=== PATIENT | female | born 1950 | race African-American/Black ===

== ENCOUNTER 2019-01-16 21:52 | Inpatient (IN) | payer MEDICARE ==
[~2019-01-16] VITALS: Ht 160 cm; Wt 67.2 kg
[~2019-01-16 21:52] MED LIST: AMLO5TAB10 PO; CALC0.25 PO; CALC667C6 PO; CARV25TA2 PO; FOLI0.8T21 PO; INSU100V13 SQ; LOSA100T14 PO; METO5TAB PO; POLY17PO29 PO; SENN8.6T67 PO; [UNRECOGNIZED DRUG - CODE] IJ
[2019-01-16] MEDS ORDERED: IPRATRPIUM/ALBUTEROL 0.5/2.5MG 3 ML NEBU. ONE (21:58)
[2019-01-16] MEDS ORDERED: IPRATRPIUM/ALBUTEROL 0.5/2.5MG 3 ML NEBU. NEB ONE (22:00)
[2019-01-16 22:24] LABS: BASE EXCESS ABG 8 mmol/L (-3-3); HCO3 ABG 32 mmol/L (21-28); PCO2 ABG 38 mmHg (35-46); SAT O2 ABG 80 % (92-99)
[2019-01-16 22:26] LABS: PO2 ABG < 42 mmHg (65-108)
[2019-01-16 22:27] LABS: FIO2 ABG 35
[2019-01-16] MEDS ORDERED: PIP/TAZO PER PHARMACY MC PRN (22:30)
[2019-01-16] MEDS ORDERED: PIPERACILLIN/TAZOBACTAM 2.25 GM in IV NORMAL SALINE 50ML 50 ML IV ONE (23:00)
[2019-01-16] MEDS ORDERED: NITROGLYCERIN OINT 1 GM PACKET. TP ONE (23:00)
[2019-01-16 23:01] LABS: BASO # 0.1 x10^3/uL (0.0-0.2); BASO % 1 % (0-3); EOS # 0.2 x10^3/uL (0.0-0.7); EOS % 3 % (0-3); HEMATOCRIT 21.1 % (36.0-47.0); LYMPH # 1.5 x10^3/uL (1.0-4.8); LYMPH % 16 % (24-48); MEAN CORPUSCULAR HEMOGLOBIN 27 pg (25-35); MEAN CORPUSCULAR HGB CONC 33 g/dL (31-37); MEAN CORPUSCULAR VOLUME 82 fL (79-100); MONO # 0.4 x10^3/uL (0.0-1.1); MONO % 4 % (0-9); NEUT % 76 % (31-73); PLATELET COUNT 354 x10^3/uL (140-400); RED BLOOD COUNT 2.56 x10^6/uL (3.50-5.40); RED CELL DISTRIBUTION WIDTH 18.6 % (11.5-14.5); WHITE BLOOD COUNT 9.2 x10^3/uL (4.0-11.0)
[2019-01-16 23:08] LABS: PROTHROMBIN TIME PATIENT 13.3 SEC (11.7-14.0)
[2019-01-16] MEDS ORDERED: LABETALOL 20 MG/4 ML DISP.SYRIN. IVP ONE (23:15)
[2019-01-16 23:24] LABS: ALBUMIN 2.8 g/dL (3.4-5.0); ALBUMIN/GLOBULIN RATIO 0.6 (1.0-1.7); CALCIUM 9.9 mg/dL (8.5-10.1); CREATININE 9.1 mg/dL (0.6-1.0); GFR 5.2; POTASSIUM 3.7 mmol/L (3.5-5.1); TOTAL BILIRUBIN 0.3 mg/dL (0.2-1.0); TOTAL PROTEIN 7.2 g/dL (6.4-8.2)
[2019-01-17] VITALS (7 sets, daily range): BP systolic 131–215; BP diastolic 60–98
--- NOTE | 2019-01-17 00:09 | PHYS DOC ---
Past Medical History Past Medical History: Diabetes-Type II, Hypertension, Renal Failure, Other Additional Past Medical Histor: UNKNOWN HX Past Surgical History: Hysterectomy, Other Additional Past Surgical Histo: PERITONEAL CATHERER REMOVED, FISTULA LUE, ABD SURG FOR PERIOTONITIS Alcohol Use: None Drug Use: None Adult General Chief Complaint Chief Complaint: SHORTNESS OF BREATH HPI HPI Patient is a 68 year old female who presents with chief complaint of shortness of breath brought in by ambulance in onset describes some chest tightness on the right only she says that is long-standing no cough no fever she was admitted to [facility] last week she said she got out about 10 days ago she had a some sort of a lesion under her left neck skin area removed there were monitoring an elevated white blood cell count I don't have access to the all those records at this time. Patient has not had a recent cough or fever she did go to dialysis on Thursday she is currently history limited due to acute shortness of breath requiring BiPAP Review of Systems Review of Systems Limited by shortness of breath Current Medications Current Medications Current Medications Medications (Trade) Dose Ordered Sig/Aruna Start Time Stop Time Status Last Admin Dose Admin Albuterol/ Ipratropium (Duoneb) 3 ml STK-MED ONCE 01/16/19 21:58 01/16/19 21:59 DC Piperacillin Sod/ Tazobactam Sod (Zosyn Per Pharmacy) 1 each PRN DAILY PRN 01/16/19 22:30 Allergies Allergies Allergies Coded Allergies Type Severity Reaction Last Updated Verified No Known Drug Allergies 01/31/15 No Physical Exam Physical Exam Constitutional: Well developed, well nourished, moderate distress HENT: Normocephalic, atraumatic, bilateral external ears normal, oropharynx moist, no oral exudates, nose normal. [] Eyes: PERRLA, EOMI, conjunctiva normal, no discharge. [] Neck: Normal range of motion, no tenderness, supple, no stridor. [] Cardiovascula difficult due to lung findings but probable murmur noted left upper sternal border Lungs & Thorax: Wheezing and crackles noted bilaterally increased tachypnea she started breathing 40 times a minute when we took the BiPAP off literally for 10 seconds Abdomen: Bowel sounds normal, soft, no tenderness, no masses, no pulsatile masses. [] Skin: Warm, dry, no erythema, no rash. [] Back: No tenderness, no CVA tenderness. [] Extremities: No tenderness, no cyanosis, no clubbing, ROM intact, 1+ bilateral edema Neurologic: Alert and oriented X 3, normal motor function, normal sensory function, no focal deficits noted. [] Psychologic: Appears very anxious Current Patient Data Vital Signs Vital Signs Date Time Temp Pulse Resp B/P (MAP) Pulse Ox O2 Delivery O2 Flow Rate FiO2 01/16/19 22:40 82 26 226/102 (143) 100 BiPAP/CPAP 01/16/19 21:52 98.2 35.0 98.2 Lab Values Laboratory Tests Test 01/16/19 22:10 01/16/19 22:40 O2 Saturation 80 % (92-99) L Arterial Blood pH 7.53 (7.35-7.45) H Arterial Blood pCO2 at Patient Temp 38 mmHg (35-46) Arterial Blood pO2 at Patient Temp < 42 mmHg (65-108) *L Arterial Blood HCO3 32 mmol/L (21-28) H Arterial Blood Base Excess 8 mmol/L (-3-3) H FiO2 35 White Blood Count 9.2 x10^3/uL (4.0-11.0) Red Blood Count 2.56 x10^6/uL (3.50-5.40) L Hemoglobin 7.0 g/dL (12.0-15.5) *L Hematocrit 21.1 % (36.0-47.0) L Mean Corpuscular Volume 82 fL (79-100) Mean Corpuscular Hemoglobin 27 pg (25-35) Mean Corpuscular Hemoglobin Concent 33 g/dL (31-37) Red Cell Distribution Width 18.6 % (11.5-14.5) H Platelet Count 354 x10^3/uL (140-400) Neutrophils (%) (Auto) 76 % (31-73) H Lymphocytes (%) (Auto) 16 % (24-48) L Monocytes (%) (Auto) 4 % (0-9) Eosinophils (%) (Auto) 3 % (0-3) Basophils (%) (Auto) 1 % (0-3) Neutrophils # (Auto) 7.0 x10^3uL (1.8-7.7) Lymphocytes # (Auto) 1.5 x10^3/uL (1.0-4.8) Monocytes # (Auto) 0.4 x10^3/uL (0.0-1.1) Eosinophils # (Auto) 0.2 x10^3/uL (0.0-0.7) Basophils # (Auto) 0.1 x10^3/uL (0.0-0.2) Prothrombin Time 13.3 SEC (11.7-14.0) Prothrombin Time INR 1.0 (0.8-1.1) Sodium Level 141 mmol/L (136-145) Potassium Level 3.7 mmol/L (3.5-5.1) Chloride Level 97 mmol/L (98-107) L Carbon Dioxide Level 33 mmol/L (21-32) H Anion Gap 11 (6-14) Blood Urea Nitrogen 72 mg/dL (7-20) H Creatinine 9.1 mg/dL (0.6-1.0) H Estimated GFR (Cockcroft-Gault) 5.2 BUN/Creatinine Ratio 8 (6-20) Glucose Level 78 mg/dL (70-99) Lactic Acid Level 1.1 mmol/L (0.4-2.0) Calcium Level 9.9 mg/dL (8.5-10.1) Total Bilirubin 0.3 mg/dL (0.2-1.0) Aspartate Amino Transferase (AST) 19 U/L (15-37) Alanine Aminotransferase (ALT) 12 U/L (14-59) L Alkaline Phosphatase 109 U/L (46-116) Troponin I Quantitative 0.038 ng/mL (0.000-0.055) PV-Uso-I-Type Natriuretic Peptide > 33606 pg/mL (0-124) H Total Protein 7.2 g/dL (6.4-8.2) Albumin 2.8 g/dL (3.4-5.0) L Albumin/Globulin Ratio 0.6 (1.0-1.7) L Procalcitonin 2.10 ng/mL (0.00-0.10) H Laboratory Tests 01/16/19 22:40 Laboratory Tests 01/16/19 22:40 EKG EKG EKG shows normal sinus rhythm rate of 82 no acute ischemic changes noted interpreted by me time of encounter.[] Radiology/Procedures Radiology/Procedures [] Impressions: Chest x-ray showed a small opacity at the right midlung field with associated infiltrate versus edema I think it looks more like pneumonia but clinically the patient is presenting more like pulmonary edema Course & Med Decision Making Course & Med Decision Making Pertinent Labs and Imaging studies reviewed. (See chart for details) []68-year-old female end-stage renal Thursday hypertension d nesha recent admit over at [facility] who is presenting with acute hypoxemic respiratory failure. Per the medics sat was in the mid 80s on arrival she was wheezing and had crackles they put her on BiPAP this helped a lot we try to take it off she did not want it off she said it made her much much better she was breathing moderately fast when we tried to remove it. Blood gases very likely venous because the sat was 100 one we DID THE GAS, she moves her arm the respiratory therapist tells me she thinks it was very likely venous as well. I spoke with Dr. VIVAR reviewed case would like to try observation see how she is doing when she gets to the floor to decide whether to do dialysis emergently tonight or not. In summary, patient is having hypoxic respiratory failure improvement with BiPAP chest x-ray abnormal probably pneumonia pro calcitonin was elevated however pulmonary edema unilateral secondary to end-stage renal disease and fluid overload is possible blood pressure was in the 220s and a BNP was also very elevated. We did order IV Zosyn in the emergency room. Hemoglobin 7.0 I ordered 1 unit of blood transfusion as well Patient was given nitroglycerin as well as labetalol in the emergency room for BPs in the 2 22/2/30 range. Admit to service of Dr. Velazquez usual local protocol , Critical care time was 35 minutes exclusive of procedures. For management of acute hypoxemic respiratory failure interpretation of blood gas monitoring and reevaluation of the patient Dragon Disclaimer Dragon Disclaimer This electronic medical record was generated, in whole or in part, using a voice recognition dictation system. Departure Departure Impression: Primary Impression: Acute hypoxemic respiratory failure Disposition: ADMITTED INPATIENT Admitting Physician: STACEY Condition: STABLE Referrals: NO PCP (PCP) AISHA ALSTON MD Jan 17, 2019 00:09
[2019-01-17] MEDS ORDERED: LABETALOL 20 MG/4 ML DISP.SYRIN. IVP PRN (00:15)
--- NOTE | 2019-01-17 02:04 | NUR ---
0100 pt here from er. Admission and pm assessment complete. Monitor on. VS taken. Call to Dr. Steiner. Pt continues to be short of breath and hypertensive. Pt stating "I need dialysis". 1 unit of blood ordered. Place on hold for now per Dr. Steiner. Dr. Steiner to contact dialysis nurse. [address] Morales regarding blood pressure. [address] Morales regarding blood pressure. Will continue to monitor.
[2019-01-17] MEDS ORDERED: ALBUMIN HUMAN 25% 200 ML IV PRN (02:30)
[2019-01-17] MEDS ORDERED: IV NORMAL SALINE 1000ML BAG 1,000 ML IV PRN ×2 (02:30)
[2019-01-17] MEDS ORDERED: DIALYSIS PATIENT. MC PRN ×2 (02:30)
--- NOTE | 2019-01-17 02:46 | NUR ---
Pt to dialysis.
--- NOTE | 2019-01-17 06:35 | EKG ---
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
--- NOTE | 2019-01-17 08:32 | PDOC1 ---
History and Physical Date of Admission Date of Admission DATE: 01/17/19 TIME: 08:29 Identification/Chief Complaint Chief Complaint short ness of breath Source Source: Chart review, Patient History of Present Illness History of Present Illness Ms. Garcia, is a 68 year old female admit with acute shortness of breath, brought by EMS, and "could not breathe" - was started on BIPAP in the ER. HD done this AM at 0300, and she now feels much better, was a sleeping hard when I entered at 0800. recent admit to [facility] for myalgias, she reports now feeling better, Patient has not had a recent cough or fever she did go to dialysis on Thursday she is currently history limited due to acute shortness of breath r . She has been compliant with dialysis, went last thursday, has been compliant with diet, Past Medical History Cardiovascular: HTN, Hyperlipidemia Pulmonary: No pertinent hx GI: No pertinent hx Heme/Onc: Anemia NOS Hepatobiliary: No pertinent hx Psych: Anxiety Musculoskeletal: Osteoarthritis Infectious disease: Other Renal/: Chronic renal failure Endocrine: Diabetes Past Surgical History Past Surgical History: Hysterectomy, Other Family History Family History: Coronary Artery Disease, Hypertension Social History Smoke: No ALCOHOL: none Drugs: None Current Medications Current Medications Current Medications Albuterol/ Ipratropium (Duoneb) 3 ml 1X ONCE NEB Last administered on 01/16/19at 22:08; Start 01/16/19 at 22:00; Stop 01/16/19 at 22:01; Status DC Albuterol/ Ipratropium (Duoneb) 3 ml STK-MED ONCE .ROUTE ; Start 01/16/19 at 21:58; Stop 01/16/19 at 21:59; Status DC Piperacillin Sod/ Tazobactam Sod (Zosyn Per Pharmacy) 1 each PRN DAILY PRN MC SEE COMMENTS; Start 01/16/19 at 22:30 Piperacillin Sod/ Tazobactam Sod 2.25 gm/Sodium Chloride 50 ml @ 100 mls/hr 1X ONCE IV Last administered on 01/16/19at 23:23; Start 01/16/19 at 23:00; Stop 01/16/19 at 23:29; Status DC Nitroglycerin (Nitro-Bid Oint) 1 inch 1X ONCE TP Last administered on 01/16/19at 23:10; Start 01/16/19 at 23:00; Stop 01/16/19 at 23:01; Status DC Labetalol HCl (Normodyne Iv Push) 20 mg 1X ONCE IVP Last administered on 01/16/19at 23:14; Start 01/16/19 at 23:15; Stop 01/16/19 at 23:16; Status DC Piperacillin Sod/ Tazobactam Sod 2.25 gm/Sodium Chloride 50 ml @ 100 mls/hr Q8HRS IV ; Start 01/17/19 at 06:00 Labetalol HCl (Normodyne Iv Push) 20 mg PRN Q2HR PRN IVP HYPERTENSION; Start 01/17/19 at 00:15 Sodium Chloride 1,000 ml @ 1,000 mls/hr Q1H PRN IV hypotension; Start 01/17/19 at 02:30; Stop 01/17/19 at 08:29 Albumin Human 200 ml @ 200 mls/hr 1X PRN PRN IV Hypotension; Start 01/17/19 at 02:30; Stop 01/17/19 at 08:29 Sodium Chloride 1,000 ml @ 400 mls/hr Q2H30M PRN IV PATENCY; Start 01/17/19 at 02:30; Stop 01/17/19 at 14:29 Info (PHARMACY MONITORING -- do not chart) 1 each PRN DAILY PRN MC SEE COMMENTS; Start 01/17/19 at 02:30 Info (PHARMACY MONITORING -- do not chart) 1 each PRN DAILY PRN MC SEE COMMENTS; Start 01/17/19 at 02:30 Active Scripts Active Reported Miralax (Polyethylene Glycol 3350) 17 Gm Powd.pack 1 Packet PO DAILY Sennosides 8.6 Mg Tablet 8.6 Mg PO DAILYWSUP Metoclopramide Hcl 5 Mg Tablet 5 Mg PO TID Losartan Potassium 100 Mg Tablet 1 Tab PO DAILY Levemir (Insulin Detemir) 100 Unit/1 Ml Vial 10 Unit SQ DAILYWSUP Elise-Monica Tablet (Folic Acid/Vitamin B Comp W-C) 0.8 Mg Tablet 0.8 Mg PO DAILY Procrit (Epoetin Shan) 20,000 Unit/2 Ml Vial 16,000 Unit IJ WEEKLY Carvedilol 25 Mg Tablet 1 Tab PO BID Phoslo (Calcium Acetate) 667 Mg Capsule 2 Cap PO TIDWMEALS Calcitriol 0.25 Mcg Capsule 1 Cap PO DAILY Amlodipine Besylate 5 Mg Tablet 1 Tab PO BID Allergies Allergies: Coded Allergies: No Known Drug Allergies (Unverified , 01/31/15) ROS General: YES: Fatigue, Malaise; No: Chills, Night Sweats, Appetite, Other PSYCHOLOGICAL ROS: YES: Sleep disturbances; No: Anxiety, Behavioral Disorder, Concentration difficultie, Decreased libido, Depression, Disorientation, Hallucinations, Hostility, Irritablity, Memory difficulties, Mood Swings, Obsessive thoughts, Suicidal ideation, Other Eyes: No Blurry vision, No Decreased vision, No Double vision, No Dry eyes, No Excessive tearing, No Eye Pain, No Itchy Eyes, No Loss of vision, No Photophobia, No Scotomata, No Uses contacts, No Uses glasses, No Other HEENT: No: Heacaches, Visual Changes, Hearing change, Nasal congestion, Nasal d ischarge, Oral lesions, Sinus pain, Sore Throat, Epistaxis, Sneezing, Snoring, Tinnitus, Vertigo, Vocal changes, Other Respiratory: YES: Shortness of breath, SOB with excertion; No: Cough, Hemoptysis, Orthopnea, Pleuritic Pain, Sputum Changes, Stridor, Tachypnea, Wheezing, Other Cardiovascular: yes Orthopnea; No Chest Pain, No Palpitations, No Paroxysmal Noc. Dyspnea, No Edema, No Lt Headedness, No Other Gastrointestinal: No Nausea, No Vomiting, No Abdominal Pain, No Diarrhea, No Constipation, No Melena, No Hematochezia, No Other Genitourinary: No Dysuria, No Frequency, No Incontinence, No Hematuria, No Re tention, No Discharge, No Urgency, No Pain, No Flank Pain, No Other, No , No , No , No , No , No , No Musculoskeletal: Yes Joint Pain Neurological: No Behavorial Changes, No Bowel/Bladder ControlChng, No Confusi on, No Dizziness, No Headaches, No Impaired Coord/balance, No Memory Loss, No Numbness/Tingling, No Seizures, No Speech Problems, No Tremors, No Visual Changes, No Weakness, No Other Skin: Yes Dry Skin Physical Exam General: Alert, Oriented X3, Cooperative, No acute distress HEENT: Atraumatic, PERRLA, EOMI, Mucous membr. moist/pink Lungs: Clear to auscultation, Normal air movement Heart: S1S2, RRR Extremities: No clubbing, Normal pulses Skin: No breakdown, No significant lesion Neuro: Normal gait, Normal speech, Normal tone, Cranial nerves 3-12 NL Psych/Mental Status: Mental status NL, Mood NL Vitals Vitals Vital Signs Date Time Temp Pulse Resp B/P (MAP) Pulse Ox O2 Delivery O2 Flow Rate FiO2 01/17/19 07:39 98.1 77 20 166/79 (108) 99 Nasal Cannula 98.1 01/16/19 21:52 35.0 Labs Labs Laboratory Tests Test 01/16/19 22:10 01/16/19 22:40 01/17/19 06:00 O2 Saturation 80 % (92-99) Arterial Blood pH 7.53 (7.35-7.45) Arterial Blood pCO2 at Patient Temp 38 mmHg (35-46) Arterial Blood pO2 at Patient Temp < 42 mmHg (65-108) Arterial Blood HCO3 32 mmol/L (21-28) Arterial Blood Base Excess 8 mmol/L (-3-3) FiO2 35 White Blood Count 9.2 x10^3/uL (4.0-11.0) Red Blood Count 2.56 x10^6/uL (3.50-5.40) Hemoglobin 7.0 g/dL (12.0-15.5) Hematocrit 21.1 % (36.0-47.0) Mean Corpuscular Volume 82 fL (79-100) Mean Corpuscular Hemoglobin 27 pg (25-35) Mean Corpuscular Hemoglobin Concent 33 g/dL (31-37) Red Cell Distribution Width 18.6 % (11.5-14.5) Platelet Count 354 x10^3/uL (140-400) Neutrophils (%) (Auto) 76 % (31-73) Lymphocytes (%) (Auto) 16 % (24-48) Monocytes (%) (Auto) 4 % (0-9) Eosinophils (%) (Auto) 3 % (0-3) Basophils (%) (Auto) 1 % (0-3) Neutrophils # (Auto) 7.0 x10^3uL (1.8-7.7) Lymphocytes # (Auto) 1.5 x10^3/uL (1.0-4.8) Monocytes # (Auto) 0.4 x10^3/uL (0.0-1.1) Eosinophils # (Auto) 0.2 x10^3/uL (0.0-0.7) Basophils # (Auto) 0.1 x10^3/uL (0.0-0.2) Prothrombin Time 13.3 SEC (11.7-14.0) Prothromb Time International Ratio 1.0 (0.8-1.1) Sodium Level 141 mmol/L (136-145) Potassium Level 3.7 mmol/L (3.5-5.1) Chloride Level 97 mmol/L (98-107) Carbon Dioxide Level 33 mmol/L (21-32) Anion Gap 11 (6-14) Blood Urea Nitrogen 72 mg/dL (7-20) Creatinine 9.1 mg/dL (0.6-1.0) Estimated GFR (Cockcroft-Gault) 5.2 BUN/Creatinine Ratio 8 (6-20) Glucose Level 78 mg/dL (70-99) Lactic Acid Level 1.1 mmol/L (0.4-2.0) Calcium Level 9.9 mg/dL (8.5-10.1) Total Bilirubin 0.3 mg/dL (0.2-1.0) Aspartate Amino Transf (AST/SGOT) 19 U/L (15-37) Alanine Aminotransferase (ALT/SGPT) 12 U/L (14-59) Alkaline Phosphatase 109 U/L (46-116) Troponin I Quantitative 0.038 ng/mL (0.000-0.055) 0.052 ng/mL (0.000-0.055) NS-Dwh-T-Type Natriuretic Peptide > 28489 pg/mL (0-124) Total Protein 7.2 g/dL (6.4-8.2) Albumin 2.8 g/dL (3.4-5.0) Albumin/Globulin Ratio 0.6 (1.0-1.7) Procalcitonin 2.10 ng/mL (0.00-0.10) Laboratory Tests Test 01/16/19 22:10 01/16/19 22:40 01/17/19 06:00 O2 Saturation 80 % (92-99) Arterial Blood pH 7.53 (7.35-7.45) Arterial Blood pCO2 at Patient Temp 38 mmHg (35-46) Arterial Blood pO2 at Patient Temp < 42 mmHg (65-108) Arterial Blood HCO3 32 mmol/L (21-28) Arterial Blood Base Excess 8 mmol/L (-3-3) FiO2 35 White Blood Count 9.2 x10^3/uL (4.0-11.0) Red Blood Count 2.56 x10^6/uL (3.50-5.40) Hemoglobin 7.0 g/dL (12.0-15.5) Hematocrit 21.1 % (36.0-47.0) Mean Corpuscular Volume 82 fL (79-100) Mean Corpuscular Hemoglobin 27 pg (25-35) Mean Corpuscular Hemoglobin Concent 33 g/dL (31-37) Red Cell Distribution Width 18.6 % (11.5-14.5) Platelet Count 354 x10^3/uL (140-400) Neutrophils (%) (Auto) 76 % (31-73) Lymphocytes (%) (Auto) 16 % (24-48) Monocytes (%) (Auto) 4 % (0-9) Eosinophils (%) (Auto) 3 % (0-3) Basophils (%) (Auto) 1 % (0-3) Neutrophils # (Auto) 7.0 x10^3uL (1.8-7.7) Lymphocytes # (Auto) 1.5 x10^3/uL (1.0-4.8) Monocytes # (Auto) 0.4 x10^3/uL (0.0-1.1) Eosinophils # (Auto) 0.2 x10^3/uL (0.0-0.7) Basophils # (Auto) 0.1 x10^3/uL (0.0-0.2) Prothrombin Time 13.3 SEC (11.7-14.0) Prothromb Time International Ratio 1.0 (0.8-1.1) Sodium Level 141 mmol/L (136-145) Potassium Level 3.7 mmol/L (3.5-5.1) Chloride Level 97 mmol/L (98-107) Carbon Dioxide Level 33 mmol/L (21-32) Anion Gap 11 (6-14) Blood Urea Nitrogen 72 mg/dL (7-20) Creatinine 9.1 mg/dL (0.6-1.0) Estimated GFR (Cockcroft-Gault) 5.2 BUN/Creatinine Ratio 8 (6-20) Glucose Level 78 mg/dL (70-99) Lactic Acid Level 1.1 mmol/L (0.4-2.0) Calcium Level 9.9 mg/dL (8.5-10.1) Total Bilirubin 0.3 mg/dL (0.2-1.0) Aspartate Amino Transf (AST/SGOT) 19 U/L (15-37) Alanine Aminotransferase (ALT/SGPT) 12 U/L (14-59) Alkaline Phosphatase 109 U/L (46-116) Troponin I Quantitative 0.038 ng/mL (0.000-0.055) 0.052 ng/mL (0.000-0.055) KR-Vgt-W-Type Natriuretic Peptide > 16384 pg/mL (0-124) Total Protein 7.2 g/dL (6.4-8.2) Albumin 2.8 g/dL (3.4-5.0) Albumin/Globulin Ratio 0.6 (1.0-1.7) Procalcitonin 2.10 ng/mL (0.00-0.10) VTE Prophylaxis Ordered VTE Prophylaxis Devices: Yes VTE Pharmacological Prophylaxi: Yes Assessment/Plan Assessment/Plan accelerated hypertension acute diastolic CHF ESRD, fluid overload, hypoxia, better s/p dialysis this AM, early anemia, symptomatic consult renal, check iron, admit YAHIR LAU MD Jan 17, 2019 08:32
[2019-01-17] MEDS: LOSARTAN POTASSIUM 50 MG TABLET. PO SCH (08:47)
[2019-01-17] MEDS: POLYETHYLENE GLYCOL 3350 17 GM PACKET. PO SCH (08:47)
[2019-01-17] MEDS: FOLIC/VIT B COMP W-C (RENAL) TABLET. PO SCH (08:47)
[2019-01-17] MEDS: amLODIPine BESYLATE 5 MG TABLET PO SCH ×2 (08:48→20:37)
[2019-01-17] MEDS: CALCITRIOL 0.25 MCG CAPSULE. PO SCH (08:48)
[2019-01-17] MEDS: METOCLOPRAMIDE 5 MG TABLET. PO SCH ×3 (08:48→17:37)
[2019-01-17] MEDS: CARVEDILOL 12.5 MG TABLET. PO SCH ×2 (08:48→17:37)
[2019-01-17] MEDS: CALCIUM ACETATE 667 MG CAPSULE PO SCH ×3 (08:49→17:37)
[2019-01-17] MEDS: PIPERACILLIN/TAZOBACTAM 2.25 GM in IV NORMAL SALINE 50ML 50 ML IV SCH ×3 (08:49→20:58)
--- NOTE | 2019-01-17 11:21 | PDOC2 ---
CONSULT Date of Consult Date of Consult DATE: 01/17/19 TIME: 11:05 Reason for Consult Reason for Consult: ESRD, shortness of breath Source Source: Chart review, Patient History of Present Illness Reason for Visit: Pt is a 68 year old AA female admitted with acute shortness of breath , brought by EMS, and "could not breathe" - was started on BIPAP in the ER. She reports that she is on HD MWF and didint miss any days. She felt shortness of breath is due to excessive fluid . No N/V/D. No CP . She was urgently Dialyzed this AM at 0300, and she now feels much better Recent admit to [facility] for myalgias, She goes to [facility] for HD and follows with [facility] Past Medical History Cardiovascular: HTN, Hyperlipidemia Pulmonary: No pertinent hx GI: No pertinent hx Heme/Onc: Anemia NOS Hepatobiliary: No pertinent hx Psych: Anxiety Musculoskeletal: Osteoarthritis Infectious disease: Other Renal/: Chronic renal failure Endocrine: Diabetes Past Surgical History Past Surgical History: Hysterectomy, Other Family History Family History: Coronary Artery Disease, Hypertension Social History No ALCOHOL: none Drugs: None Lives: with Family Domestic Violence: Neg Current Medications Current Medications Current Medications Albuterol/ Ipratropium (Duoneb) 3 ml 1X ONCE NEB Last administered on 01/16/19at 22:08; Start 01/16/19 at 22:00; Stop 01/16/19 at 22:01; Status DC Albuterol/ Ipratropium (Duoneb) 3 ml STK-MED ONCE .ROUTE ; Start 01/16/19 at 21:58; Stop 01/16/19 at 21:59; Status DC Piperacillin Sod/ Tazobactam Sod (Zosyn Per Pharmacy) 1 each PRN DAILY PRN MC SEE COMMENTS; Start 01/16/19 at 22:30 Piperacillin Sod/ Tazobactam Sod 2.25 gm/Sodium Chloride 50 ml @ 100 mls/hr 1X ONCE IV Last administered on 01/16/19at 23:23; Start 01/16/19 at 23:00; Stop 01/16/19 at 23:29; Status DC Nitroglycerin (Nitro-Bid Oint) 1 inch 1X ONCE TP Last administered on 01/16/19at 23:10; Start 01/16/19 at 23:00; Stop 01/16/19 at 23:01; Status DC Labetalol HCl (Normodyne Iv Push) 20 mg 1X ONCE IVP Last administered on 01/16/19at 23:14; Start 01/16/19 at 23:15; Stop 01/16/19 at 23:16; Status DC Piperacillin Sod/ Tazobactam Sod 2.25 gm/Sodium Chloride 50 ml @ 100 mls/hr Q8HRS IV Last administered on 01/17/19at 08:49; Start 01/17/19 at 06:00 Labetalol HCl (Normodyne Iv Push) 20 mg PRN Q2HR PRN IVP HYPERTENSION; Start at 00:15 Sodium Chloride 1,000 ml @ 1,000 mls/hr Q1H PRN IV hypotension; Start 01/17/19 at 02:30; Stop 01/17/19 at 08:29; Status DC Albumin Human 200 ml @ 200 mls/hr 1X PRN PRN IV Hypotension; Start 01/17/19 at 02:30; Stop 01/17/19 at 08:29; Status DC Sodium Chloride 1,000 ml @ 400 mls/hr Q2H30M PRN IV PATENCY; Start 01/17/19 at 02:30; Stop 01/17/19 at 14:29 Info (PHARMACY MONITORING -- do not chart) 1 each PRN DAILY PRN MC SEE COMMENTS; Start 01/17/19 at 02:30 Info (PHARMACY MONITORING -- do not chart) 1 each PRN DAILY PRN MC SEE COMMENTS; Start 01/17/19 at 02:30 Amlodipine Besylate (Norvasc) 5 mg BID PO Last administered on 01/17/19at 08:48; Start 01/17/19 at 09:00 Calcium Acetate (Phoslo) 1,334 mg TIDWMEALS PO Last administered on 01/17/19at 08:49; Start 01/17/19 at 09:00 Vitamin B Complex/ Vitamin C (Elise-Monica) 1 tab DAILY PO Last administered on 01/17/19at 08:47; Start 01/17/19 at 09:00 Metoclopramide HCl (Reglan) 2.5 mg TIDWMEALS PO Last administered on 01/17/19at 08:48; Start 01/17/19 at 09:00 Calcitriol (Rocaltrol) 0.25 mcg DAILY PO Last administered on 01/17/19at 08:48; Start 01/17/19 at 09:00 Carvedilol (Coreg) 25 mg BIDWMEALS PO Last administered on 01/17/19at 08:48; Start 01/17/19 at 09:00 Insulin Glargine (Lantus) 10 units DAILYWSUP SQ ; Start 01/17/19 at 17:00 Losartan Potassium (Cozaar) 100 mg DAILY PO Last administered on 01/17/19at 08:47; Start 01/17/19 at 09:00 Polyethylene Glycol (miraLAX PACKET) 17 gm DAILY PO Last administered on 01/17/19at 08:47; Start 01/17/19 at 09:00 Sennosides (Senna) 8.6 mg DAILYWSUP PO ; Start 01/17/19 at 17:00 Active Scripts Active Reported Miralax (Polyethylene Glycol 3350) 17 Gm Powd.pack 1 Packet PO DAILY Sennosides 8.6 Mg Tablet 8.6 Mg PO DAILYWSUP Metoclopramide Hcl 5 Mg Tablet 5 Mg PO TID Losartan Potassium 100 Mg Tablet 1 Tab PO DAILY Levemir (Insulin Detemir) 100 Unit/1 Ml Vial 10 Unit SQ DAILYWSUP Elise-Monica Tablet (Folic Acid/Vitamin B Comp W-C) 0.8 Mg Tablet 0.8 Mg PO DAILY Procrit (Epoetin Shan) 20,000 Unit/2 Ml Vial 16,000 Unit IJ WEEKLY Carvedilol 25 Mg Tablet 1 Tab PO BID Phoslo (Calcium Acetate) 667 Mg Capsule 2 Cap PO TIDWMEALS Calcitriol 0.25 Mcg Capsule 1 Cap PO DAILY Amlodipine Besylate 5 Mg Tablet 1 Tab PO BID Allergies Allergies: Coded Allergies: No Known Drug Allergies (Unverified , 01/31/15) ROS Review of System Per HPI Physical Exam Physical Exam General: Alert, Oriented X3, Cooperative, No acute distress HEENT: Atraumatic, PERRLA, EOMI, Mucous membr. moist/pink, On o2 by NC Neck Supple Lungs: Clear to auscultation, Normal air movement Heart: S1S2, RRR Extremities: No edema Skin: No rash Neuro: Grossly normal Psych/Mental Status: Mental status NL, Mood NL no Boyle Vital Signs Vital Signs Date Time Temp Pulse Resp B/P (MAP) Pulse Ox O2 Delivery O2 Flow Rate FiO2 01/17/19 10:49 97.7 73 20 174/82 (112) 92 Room Air 97.7 01/16/19 21:52 35.0 Assessment & Plan ESRD- On HD MWF - [facility] (Dr. Reeves) Has been on HD for 5 years, No RRF Reports Compliance with HD and Diet Urgent HD at night due to Shortness of breath requiring Bipap Now better , No on o2 at home Shortness of breath- Improved ACcelerated hypertension Improved post HD, continue Home meds Anemia -Dw with floor RN to hold PRBC until she is on HD Monitor FADI if BP stable Labs Labs Laboratory Tests Test 01/16/19 22:10 01/16/19 22:40 01/17/19 03:24 01/17/19 06:00 O2 Saturation 80 % (92-99) Arterial Blood pH 7.53 (7.35-7.45) Arterial Blood pCO2 at Patient Temp 38 mmHg (35-46) Arterial Blood pO2 at Patient Temp < 42 mmHg (65-108) Arterial Blood HCO3 32 mmol/L (21-28) Arterial Blood Base Excess 8 mmol/L (-3-3) FiO2 35 White Blood Count 9.2 x10^3/uL (4.0-11.0) Red Blood Count 2.56 x10^6/uL (3.50-5.40) Hemoglobin 7.0 g/dL (12.0-15.5) Hematocrit 21.1 % (36.0-47.0) Mean Corpuscular Volume 82 fL (79-100) Mean Corpuscular Hemoglobin 27 pg (25-35) Mean Corpuscular Hemoglobin Concent 33 g/dL (31-37) Red Cell Distribution Width 18.6 % (11.5-14.5) Platelet Count 354 x10^3/uL (140-400) Neutrophils (%) (Auto) 76 % (31-73) Lymphocytes (%) (Auto) 16 % (24-48) Monocytes (%) (Auto) 4 % (0-9) Eosinophils (%) (Auto) 3 % (0-3) Basophils (%) (Auto) 1 % (0-3) Neutrophils # (Auto) 7.0 x10^3uL (1.8-7.7) Lymphocytes # (Auto) 1.5 x10^3/uL (1.0-4.8) Monocytes # (Auto) 0.4 x10^3/uL (0.0-1.1) Eosinophils # (Auto) 0.2 x10^3/uL (0.0-0.7) Basophils # (Auto) 0.1 x10^3/uL (0.0-0.2) Prothrombin Time 13.3 SEC (11.7-14.0) Prothromb Time International Ratio 1.0 (0.8-1.1) Sodium Level 141 mmol/L (136-145) Potassium Level 3.7 mmol/L (3.5-5.1) Chloride Level 97 mmol/L (98-107) Carbon Dioxide Level 33 mmol/L (21-32) Anion Gap 11 (6-14) Blood Urea Nitrogen 72 mg/dL (7-20) Creatinine 9.1 mg/dL (0.6-1.0) Estimated GFR (Cockcroft-Gault) 5.2 BUN/Creatinine Ratio 8 (6-20) Glucose Level 78 mg/dL (70-99) Lactic Acid Level 1.1 mmol/L (0.4-2.0) Calcium Level 9.9 mg/dL (8.5-10.1) Total Bilirubin 0.3 mg/dL (0.2-1.0) Aspartate Amino Transf (AST/SGOT) 19 U/L (15-37) Alanine Aminotransferase (ALT/SGPT) 12 U/L (14-59) Alkaline Phosphatase 109 U/L (46-116) Troponin I Quantitative 0.038 ng/mL (0.000-0.055) 0.052 ng/mL (0.000-0.055) DZ-Flk-A-Type Natriuretic Peptide > 51675 pg/mL (0-124) Total Protein 7.2 g/dL (6.4-8.2) Albumin 2.8 g/dL (3.4-5.0) Albumin/Globulin Ratio 0.6 (1.0-1.7) Procalcitonin 2.10 ng/mL (0.00-0.10) Hepatitis B Surface Antigen Nonreactive (Nonreactive) Hepatitis B Surface Antibody Nonreactive Laboratory Tests Test 01/16/19 22:10 6/2/19 22:40 01/17/19 03:24 01/17/19 06:00 O2 Saturation 80 % (92-99) Arterial Blood pH 7.53 (7.35-7.45) Arterial Blood pCO2 at Patient Temp 38 mmHg (35-46) Arterial Blood pO2 at Patient Temp < 42 mmHg (65-108) Arterial Blood HCO3 32 mmol/L (21-28) Arterial Blood Base Excess 8 mmol/L (-3-3) FiO2 35 White Blood Count 9.2 x10^3/uL (4.0-11.0) Red Blood Count 2.56 x10^6/uL (3.50-5.40) Hemoglobin 7.0 g/dL (12.0-15.5) Hematocrit 21.1 % (36.0-47.0) Mean Corpuscular Volume 82 fL (79-100) Mean Corpuscular Hemoglobin 27 pg (25-35) Mean Corpuscular Hemoglobin Concent 33 g/dL (31-37) Red Cell Distribution Width 18.6 % (11.5-14.5) Platelet Count 354 x10^3/uL (140-400) Neutrophils (%) (Auto) 76 % (31-73) Lymphocytes (%) (Auto) 16 % (24-48) Monocytes (%) (Auto) 4 % (0-9) Eosinophils (%) (Auto) 3 % (0-3) Basophils (%) (Auto) 1 % (0-3) Neutrophils # (Auto) 7.0 x10^3uL (1.8-7.7) Lymphocytes # (Auto) 1.5 x10^3/uL (1.0-4.8) Monocytes # (Auto) 0.4 x10^3/uL (0.0-1.1) Eosinophils # (Auto) 0.2 x10^3/uL (0.0-0.7) Basophils # (Auto) 0.1 x10^3/uL (0.0-0.2) Prothrombin Time 13.3 SEC (11.7-14.0) Prothromb Time International Ratio 1.0 (0.8-1.1) Sodium Level 141 mmol/L (136-145) Potassium Level 3.7 mmol/L (3.5-5.1) Chloride Level 97 mmol/L (98-107) Carbon Dioxide Level 33 mmol/L (21-32) Anion Gap 11 (6-14) Blood Urea Nitrogen 72 mg/dL (7-20) Creatinine 9.1 mg/dL (0.6-1.0) Estimated GFR (Cockcroft-Gault) 5.2 BUN/Creatinine Ratio 8 (6-20) Glucose Level 78 mg/dL (70-99) Lactic Acid Level 1.1 mmol/L (0.4-2.0) Calcium Level 9.9 mg/dL (8.5-10.1) Total Bilirubin 0.3 mg/dL (0.2-1.0) Aspartate Amino Transf (AST/SGOT) 19 U/L (15-37) Alanine Aminotransferase (ALT/SGPT) 12 U/L (14-59) Alkaline Phosphatase 109 U/L (46-116) Troponin I Quantitative 0.038 ng/mL (0.000-0.055) 0.052 ng/mL (0.000-0.055) KR-Tla-J-Type Natriuretic Peptide > 43864 pg/mL (0-124) Total Protein 7.2 g/dL (6.4-8.2) Albumin 2.8 g/dL (3.4-5.0) Albumin/Globulin Ratio 0.6 (1.0-1.7) Procalcitonin 2.10 ng/mL (0.00-0.10) Hepatitis B Surface Antigen Nonreactive (Nonreactive) Hepatitis B Surface Antibody Nonreactive Review All relevant outside records, renal labs, imaging studies, telemetry/EKG's were reviewed. ELIEL VIVAR MD Jan 17, 2019 11:21
[2019-01-17 13:08] LABS: BASO # 0.1 x10^3/uL (0.0-0.2); BASO % 1 % (0-3); EOS # 0.2 x10^3/uL (0.0-0.7); EOS % 2 % (0-3); HEMATOCRIT 22.9 % (36.0-47.0); HEMOGLOBIN 7.5 g/dL (12.0-15.5); LYMPH # 0.9 x10^3/uL (1.0-4.8); LYMPH % 11 % (24-48); MEAN CORPUSCULAR HEMOGLOBIN 27 pg (25-35); MEAN CORPUSCULAR HGB CONC 33 g/dL (31-37); MEAN CORPUSCULAR VOLUME 84 fL (79-100); MONO # 0.3 x10^3/uL (0.0-1.1); MONO % 4 % (0-9); NEUT # 6.4 x10^3uL (1.8-7.7); NEUT % 82 % (31-73); PLATELET COUNT 341 x10^3/uL (140-400); RED BLOOD COUNT 2.75 x10^6/uL (3.50-5.40); RED CELL DISTRIBUTION WIDTH 18.8 % (11.5-14.5); WHITE BLOOD COUNT 7.9 x10^3/uL (4.0-11.0)
--- NOTE | 2019-01-17 13:43 | RAD ---
Examination: Single frontal view of the chest HISTORY: History of shortness of breath COMPARISON: 02/05/2015 FINDINGS: Mild cardiomegaly. Diffuse prominent appearing bilateral emphysematous lung markings likely moderate congestive changes. Elliptical density projects in the right midlung zone probably fluid within the fissure or airspace opacity or mass. IMPRESSION: 1. Moderate congestive changes. 2. Elliptical density projects in the right midlung zone probably fluid within the fissure or airspace opacity or mass. Close interval follow-up examination is recommended. Electronically signed by: Bruno Johnson MD (01/17/2019 1:40 PM) [place] [id number]
--- NOTE | 2019-01-17 13:54 | NUR ---
Pt's Hgb on admission was 7.0 repeat drawn after dialysis with a Hgb of 7.5 Dr. Steiner notified, received verbal orders to hold off on giving blood.
--- NOTE | 2019-01-17 14:40 | NUR ---
SS following for discharge planning. SS reviewed pt chart. Pt is from home with spouse. Pt reports having dialysis chair time in the community on Thursday, Thursday, and Thursday's. No discharge needs noted at this time. SS will continue to follow for discharge planning.
[2019-01-17] MEDS ORDERED: SENNOSIDES 8.6 MG TABLET PO SCH (17:00)
[2019-01-17] MEDS ORDERED: INSULIN GLARGINE 300 UNITS/3 ML INSULN.PEN. SQ SCH (17:00)
[2019-01-18 02:42] VITALS: BP 165/69
[2019-01-18] MEDS: PIPERACILLIN/TAZOBACTAM 2.25 GM in IV NORMAL SALINE 50ML 50 ML IV SCH (05:17)
[2019-01-18] MEDS: CALCIUM ACETATE 667 MG CAPSULE PO SCH (07:26)
[2019-01-18] MEDS: METOCLOPRAMIDE 5 MG TABLET. PO SCH (07:26)
[2019-01-18 07:38] VITALS: BP 144/67
--- NOTE | 2019-01-18 08:54 | PDOC3 ---
Discharge Summary Visit Information Date of Admission: Jan 16, 2019 Date of Discharge: Jan 18, 2019 Admitting Diagnosis: acute hypoxia Final Diagnosis accelerated hypertension acute diastolic CHF ESRD, fluid overload, hypoxia, better s/p dialysis this AM, early anemia, symptomatic consult renal, check iron, Brief Hospital Course Allergies Allergies Coded Allergies Type Severity Reaction Last Updated Verified No Known Drug Allergies 01/31/15 No Vital Signs Vital Signs Date Time Temp Pulse Resp B/P (MAP) Pulse Ox O2 Delivery O2 Flow Rate FiO2 01/18/19 08:00 Room Air 01/18/19 07:38 98.0 72 18 144/67 (92) 97 98.0 01/17/19 19:40 2.0 Lab Results Laboratory Tests Test 01/16/19 22:10 01/16/19 22:40 01/17/19 03:24 01/17/19 06:00 O2 Saturation 80 % (92-99) Arterial Blood pH 7.53 (7.35-7.45) Arterial Blood pCO2 at Patient Temp 38 mmHg (35-46) Arterial Blood pO2 at Patient Temp < 42 mmHg (65-108) Arterial Blood HCO3 32 mmol/L (21-28) Arterial Blood Base Excess 8 mmol/L (-3-3) FiO2 35 White Blood Count 9.2 x10^3/uL (4.0-11.0) Red Blood Count 2.56 x10^6/uL (3.50-5.40) Hemoglobin 7.0 g/dL (12.0-15.5) Hematocrit 21.1 % (36.0-47.0) Mean Corpuscular Volume 82 fL (79-100) Mean Corpuscular Hemoglobin 27 pg (25-35) Mean Corpuscular Hemoglobin Concent 33 g/dL (31-37) Red Cell Distribution Width 18.6 % (11.5-14.5) Platelet Count 354 x10^3/uL (140-400) Neutrophils (%) (Auto) 76 % (31-73) Lymphocytes (%) (Auto) 16 % (24-48) Monocytes (%) (Auto) 4 % (0-9) Eosinophils (%) (Auto) 3 % (0-3) Basophils (%) (Auto) 1 % (0-3) Neutrophils # (Auto) 7.0 x10^3uL (1.8-7.7) Lymphocytes # (Auto) 1.5 x10^3/uL (1.0-4.8) Monocytes # (Auto) 0.4 x10^3/uL (0.0-1.1) Eosinophils # (Auto) 0.2 x10^3/uL (0.0-0.7) Basophils # (Auto) 0.1 x10^3/uL (0.0-0.2) Prothrombin Time 13.3 SEC (11.7-14.0) Prothromb Time International Ratio 1.0 (0.8-1.1) Sodium Level 141 mmol/L (136-145) Potassium Level 3.7 mmol/L (3.5-5.1) Chloride Level 97 mmol/L (98-107) Carbon Dioxide Level 33 mmol/L (21-32) Anion Gap 11 (6-14) Blood Urea Nitrogen 72 mg/dL (7-20) Creatinine 9.1 mg/dL (0.6-1.0) Estimated GFR (Cockcroft-Gault) 5.2 BUN/Creatinine Ratio 8 (6-20) Glucose Level 78 mg/dL (70-99) Lactic Acid Level 1.1 mmol/L (0.4-2.0) Calcium Level 9.9 mg/dL (8.5-10.1) Total Bilirubin 0.3 mg/dL (0.2-1.0) Aspartate Amino Transf (AST/SGOT) 19 U/L (15-37) Alanine Aminotransferase (ALT/SGPT) 12 U/L (14-59) Alkaline Phosphatase 109 U/L (46-116) Troponin I Quantitative 0.038 ng/mL (0.000-0.055) 0.052 ng/mL (0.000-0.055) JC-Uge-A-Type Natriuretic Peptide > 76054 pg/mL (0-124) Total Protein 7.2 g/dL (6.4-8.2) Albumin 2.8 g/dL (3.4-5.0) Albumin/Globulin Ratio 0.6 (1.0-1.7) Procalcitonin 2.10 ng/mL (0.00-0.10) Hepatitis B Surface Antigen Nonreactive (Nonreactive) Hepatitis B Surface Antibody Nonreactive Test 01/17/19 12:50 01/17/19 17:43 01/17/19 20:22 01/18/19 07:19 White Blood Count 7.9 x10^3/uL (4.0-11.0) Red Blood Count 2.75 x10^6/uL (3.50-5.40) Hemoglobin 7.5 g/dL (12.0-15.5) Hematocrit 22.9 % (36.0-47.0) Mean Corpuscular Volume 84 fL (79-100) Mean Corpuscular Hemoglobin 27 pg (25-35) Mean Corpuscular Hemoglobin Concent 33 g/dL (31-37) Red Cell Distribution Width 18.8 % (11.5-14.5) Platelet Count 341 x10^3/uL (140-400) Neutrophils (%) (Auto) 82 % (31-73) Lymphocytes (%) (Auto) 11 % (24-48) Monocytes (%) (Auto) 4 % (0-9) Eosinophils (%) (Auto) 2 % (0-3) Basophils (%) (Auto) 1 % (0-3) Neutrophils # (Auto) 6.4 x10^3uL (1.8-7.7) Lymphocytes # (Auto) 0.9 x10^3/uL (1.0-4.8) Monocytes # (Auto) 0.3 x10^3/uL (0.0-1.1) Eosinophils # (Auto) 0.2 x10^3/uL (0.0-0.7) Basophils # (Auto) 0.1 x10^3/uL (0.0-0.2) Glucose (Fingerstick) 162 mg/dL (70-99) 188 mg/dL (70-99) 181 mg/dL (70-99) Laboratory Tests Test 01/17/19 12:50 01/17/19 17:43 01/17/19 20:22 01/18/19 07:19 White Blood Count 7.9 x10^3/uL (4.0-11.0) Red Blood Count 2.75 x10^6/uL (3.50-5.40) Hemoglobin 7.5 g/dL (12.0-15.5) Hematocrit 22.9 % (36.0-47.0) Mean Corpuscular Volume 84 fL (79-100) Mean Corpuscular Hemoglobin 27 pg (25-35) Mean Corpuscular Hemoglobin Concent 33 g/dL (31-37) Red Cell Distribution Width 18.8 % (11.5-14.5) Platelet Count 341 x10^3/uL (140-400) Neutrophils (%) (Auto) 82 % (31-73) Lymphocytes (%) (Auto) 11 % (24-48) Monocytes (%) (Auto) 4 % (0-9) Eosinophils (%) (Auto) 2 % (0-3) Basophils (%) (Auto) 1 % (0-3) Neutrophils # (Auto) 6.4 x10^3uL (1.8-7.7) Lymphocytes # (Auto) 0.9 x10^3/uL (1.0-4.8) Monocytes # (Auto) 0.3 x10^3/uL (0.0-1.1) Eosinophils # (Auto) 0.2 x10^3/uL (0.0-0.7) Basophils # (Auto) 0.1 x10^3/uL (0.0-0.2) Glucose (Fingerstick) 162 mg/dL (70-99) 188 mg/dL (70-99) 181 mg/dL (70-99) Brief Hospital Course Ms. Garcia is a 68 old on HD, admit with acute hypoxia, dyspnea, she reports compliance with meds and diet and dialysis. she is back to her baseline after dialysis DC home, f/u renal Discharge Information Condition at Discharge: Improved Follow Up: Weeks Disposition/Orders: D/C to Home Scheduled Amlodipine Besylate (Amlodipine Besylate) 5 Mg Tablet, 1 TAB PO BID, #30 Ref 5 (Reported) Entered as Reported by: KHOA THORNE on 02/01/15 1020 Last Action: Continued on 01/17/19814 by YAHIR LAU Calcitriol (Calcitriol) 0.25 Mcg Capsule, 1 CAP PO DAILY, #30 Ref 5 (Reported) Entered as Reported by: KHOA THORNE on 02/01/15 1020 Last Action: Converted on 01/17/19814 by YAHIR LAU Calcium Acetate (Phoslo) 667 Mg Capsule, 2 CAP PO TIDWMEALS, #180 Ref 5 (Reported) Entered as Reported by: KHOA THORNE on 02/01/15 1020 Last Action: Continued on 01/17/19814 by YAHIR LAU Carvedilol (Carvedilol) 25 Mg Tablet, 1 TAB PO BID, #180 Ref 1 (Reported) Entered as Reported by: KHOA THORNE on 02/01/15 1020 Last Action: Converted on 01/17/19814 by YAHIR LAU Epoetin Shan (Procrit) 20,000 Unit/2 Ml Vial, 16,000 UNIT IJ WEEKLY, (Reported) Entered as Reported by: KHOA THORNE on 02/01/15 1020 Last Action: HELD on 01/17/19814 by YAHIR LAU Folic Acid/Vitamin B Comp W-C (Elise-Monica Tablet) 0.8 Mg Tablet, 0.8 MG PO DAILY, (Reported) Entered as Reported by: KHOA THORNE on 02/01/15 1020 Last Action: Continued on 01/17/19814 by YAHIR LAU Insulin Detemir (Levemir) 100 Unit/1 Ml Vial, 10 UNIT SQ DAILYWSUP, (Reported) Entered as Reported by: KHOA THORNE on 02/01/15 1020 Last Action: Converted on 01/17/19814 by YAHIR LAU Losartan Potassium (Losartan Potassium) 100 Mg Tablet, 1 TAB PO DAILY, #30 Ref 5 (Reported) Entered as Reported by: KHOA THORNE on 02/01/15 1020 Last Action: Converted on 01/17/19814 by YAHIR LAU Metoclopramide Hcl (Metoclopramide Hcl) 5 Mg Tablet, 5 MG PO TID, #60 Ref 0 (Reported) Entered as Reported by: KHOA THORNE on 02/01/15 1020 Last Action: Continued on 01/17/19814 by YAHIR LAU Polyethylene Glycol 3350 (Miralax) 17 Gm Powd.pack, 1 PACKET PO DAILY, #30 Ref 3 (Reported) Entered as Reported by: KHOA THORNE on 02/01/15 1020 Last Action: Converted on 01/17/19814 by YAHIR LAU Sennosides (Sennosides) 8.6 Mg Tablet, 8.6 MG PO DAILYWSUP, (Reported) Entered as Reported by: KHOA THORNE on 02/01/15 1020 Last Action: Converted on 01/17/19 0815 by YAHIR LAU Patient Instructions Patient Instructions f/u at HD tomorrow < 30 min face to face YAHIR LUA MD Jan 18, 2019 08:54
[2019-01-18] MEDS: POLYETHYLENE GLYCOL 3350 17 GM PACKET. PO SCH (09:00)
[2019-01-18] MEDS: CALCITRIOL 0.25 MCG CAPSULE. PO SCH (09:01)
[2019-01-18] MEDS: LOSARTAN POTASSIUM 50 MG TABLET. PO SCH (09:01)
[2019-01-18] MEDS: FOLIC/VIT B COMP W-C (RENAL) TABLET. PO SCH (09:01)
[2019-01-18 09:02] VITALS: BP 144/67
[2019-01-18] MEDS: CARVEDILOL 12.5 MG TABLET. PO SCH (09:02)
[2019-01-18] MEDS: amLODIPine BESYLATE 5 MG TABLET PO SCH (09:02)
--- NOTE | 2019-01-18 09:26 | NUR ---
Discharge Note: LAQUITA TRAORE [facility] Discharge instructions and discharge home medications reviewed with Patient and a copy given. All questions have been answered and understanding verbalized. The following instructions and handouts were given: Dialysis and Resp failure Discontinued lines and drains: Peripheral IV intact. Patient discharged to Home or Self Care with Spouse via Ambulated All personal belongings taken with patient, patient left in POV.
== END 2019-01-18 09:28 | disposition home or self-care (01) | DRG 291 ==
LOC: ER 21:52 → 2 SOUTH 22:40
PROVIDERS: ADMIT Internal Medicine; ATTEND Internal Medicine
PROC: 5A09357 Assistance with Respiratory Ventilation, Less than 24 Consecutive Hours, Continuous Positive Airway Pressure (ICD-10-PCS; principal; 2019-01-16)
PROC: 5A1D70Z Performance of Urinary Filtration, Intermittent, Less than 6 Hours Per Day (ICD-10-PCS; 2019-01-17)
DX: I13.2 Hypertensive heart and chronic kidney disease with heart failure and with stage 5 chronic kidney disease, or end stage renal disease (principal); I50.31 Acute diastolic (congestive) heart failure; J96.01 Acute respiratory failure with hypoxia; N18.6 End stage renal disease; D64.9 Anemia, unspecified; E11.22 Type 2 diabetes mellitus with diabetic chronic kidney disease; M19.90 Unspecified osteoarthritis, unspecified site; F41.9 Anxiety disorder, unspecified; E78.5 Hyperlipidemia, unspecified; Z82.49 Family history of ischemic heart disease and other diseases of the circulatory system; Z90.710 Acquired absence of both cervix and uterus; Z99.2 Dependence on renal dialysis
CPT/HCPCS: 36415; 36600; 71045; 80053; 82805; 82962; 83605; 83880; 84145; 84484; 85025; 85610; 86706; 86850; 86900; 86901; 86920; 87040; 87205; 87340; 93005; 94640; 94660; 96365; 96375; 99291; J1815; J2543; J3490; J7620; J8597

== ENCOUNTER 2019-02-25 09:05 | Inpatient (IN) | payer MEDICARE ==
[~2019-02-25] VITALS: Ht 157.5 cm; Wt 63.6 kg
[2019-02-25] MEDS ORDERED: fentaNYL PF VIAL 100 MCG/2 ML VIAL IV ONE ×2 (09:30→11:45)
--- NOTE | 2019-02-25 09:45 | PHYS DOC ---
Past Medical History Past Medical History: Diabetes-Type II, Hypertension, Renal Failure, Other Additional Past Medical Histor: UNKNOWN HX Past Surgical History: Hysterectomy, Other Additional Past Surgical Histo: PERITONEAL CATHERER REMOVED, FISTULA LUE, ABD SURG FOR PERIOTONITIS Alcohol Use: None Drug Use: None Adult General Chief Complaint Chief Complaint: ABDOMINAL PAIN HPI HPI Patient is a 68 year old female who presents with complaining of abdominal pain. Patient had history of chronic renal failure on hemodialysis � with appointment at 4 PM today and complaining of sudden onset of left lower quadrant sharp pain since yesterday as a constant pain with radiation to her back and rated her pain 10 over 10. Patient denies nausea and vomiting, diarrhea, fever and chills, history of the same pain. Patient does not make any urine and has chronic constipation with last bowel movement 2 days ago. Review of Systems Review of Systems Constitutional: Denies fever or chills [] Eyes: Denies change in visual acuity, redness, or eye pain [] HENT: Denies nasal congestion or sore throat [] Respiratory: Denies cough or shortness of breath [] Cardiovascular: No additional information not addressed in HPI [] GI: Reports abdominal pain, constipation, denies nausea, vomiting, bloody stools or diarrhea [] : Denies dysuria or hematuria [] Musculoskeletal: Denies back pain or joint pain [] Integument: Denies rash or skin lesions [] Neurologic: Denies headache, focal weakness or sensory changes [] Endocrine: Denies polyuria or polydipsia [] All other systems were reviewed and found to be within normal limits, except as documented in this note. Current Medications Current Medications Current Medications Medications (Trade) Dose Ordered Sig/Aruna Start Time Stop Time Status Last Admin Dose Admin Fentanyl Citrate (Fentanyl 2ml Vial) 50 mcg 1X ONCE 02/25/19 09:30 02/25/19 09:31 DC 02/25/19 09:52 50 MCG Allergies Allergies Allergies Coded Allergies Type Severity Reaction Last Updated Verified No Known Drug Allergies 01/31/15 No Physical Exam Physical Exam Constitutional: Well nourished, mild distress, non-toxic appearance. [] HENT: Normocephalic, atraumatic, oropharynx moist.[] Eyes: PERRLA, EOMI, conjunctiva normal, no discharge. [] Neck: Normal range of motion, no tenderness, supple, no stridor. [] Cardiovascular:Heart rate regular rhythm, systolic grade 3/6 murmur Lungs & Thorax: Bilateral breath sounds clear to auscultation [] Abdomen: Bowel sounds normal, soft, right lower quadrant guarding , no masses, no pulsatile masses. [] Skin: Warm, dry, no erythema, no rash. [] Back: No tenderness, no CVA tenderness. [] Extremities: No tenderness, no cyanosis, no clubbing, ROM intact, no edema. [] Neurologic: Alert and oriented X 3, normal motor function, normal sensory function, no focal deficits noted. [] Psychologic: Affect anxious, judgement normal, mood normal. [] Current Patient Data Vital Signs Vital Signs Date Time Temp Pulse Resp B/P (MAP) Pulse Ox O2 Delivery O2 Flow Rate FiO2 02/25/19 11:15 78 15 201/85 (123) 99 Room Air 02/25/19 09:10 98.3 98.3 Lab Values Laboratory Tests Test 02/25/19 10:50 White Blood Count 11.2 x10^3/uL (4.0-11.0) H Red Blood Count 4.13 x10^6/uL (3.50-5.40) Hemoglobin 13.0 g/dL (12.0-15.5) Hematocrit 39.0 % (36.0-47.0) Mean Corpuscular Volume 94 fL (79-100) Mean Corpuscular Hemoglobin 31 pg (25-35) Mean Corpuscular Hemoglobin Concent 33 g/dL (31-37) Red Cell Distribution Width 21.1 % (11.5-14.5) H Platelet Count 233 x10^3/uL (140-400) Neutrophils (%) (Auto) 85 % (31-73) H Lymphocytes (%) (Auto) 8 % (24-48) L Monocytes (%) (Auto) 4 % (0-9) Eosinophils (%) (Auto) 2 % (0-3) Basophils (%) (Auto) 1 % (0-3) Neutrophils # (Auto) 9.5 x10^3/uL (1.8-7.7) H Lymphocytes # (Auto) 0.9 x10^3/uL (1.0-4.8) L Monocytes # (Auto) 0.5 x10^3/uL (0.0-1.1) Eosinophils # (Auto) 0.2 x10^3/uL (0.0-0.7) Basophils # (Auto) 0.1 x10^3/uL (0.0-0.2) Segmented Neutrophils % 84 % (35-66) H Band Neutrophils % 2 % (0-9) Lymphocytes % 10 % (24-48) L Monocytes % 4 % (0-10) Platelet Estimate Adequate (ADEQUATE) Prothrombin Time 13.1 SEC (11.7-14.0) Prothrombin Time INR 1.0 (0.8-1.1) Sodium Level 135 mmol/L (136-145) L Potassium Level 6.9 mmol/L (3.5-5.1) *H Chloride Level 90 mmol/L (98-107) L Carbon Dioxide Level 34 mmol/L (21-32) H Anion Gap 11 (6-14) Blood Urea Nitrogen 56 mg/dL (7-20) H Creatinine 9.4 mg/dL (0.6-1.0) H Estimated GFR (Cockcroft-Gault) 5.0 BUN/Creatinine Ratio 6 (6-20) Glucose Level 142 mg/dL (70-99) H Calcium Level 10.4 mg/dL (8.5-10.1) H Total Bilirubin 0.4 mg/dL (0.2-1.0) Aspartate Amino Transferase (AST) 15 U/L (15-37) Alanine Aminotransferase (ALT) 15 U/L (14-59) Alkaline Phosphatase 140 U/L (46-116) H Creatine Kinase 29 U/L (26-192) Total Protein 8.6 g/dL (6.4-8.2) H Albumin 3.8 g/dL (3.4-5.0) Albumin/Globulin Ratio 0.8 (1.0-1.7) L Lipase 162 U/L (73-393) Laboratory Tests 02/25/19 10:50 Laboratory Tests 02/25/19 10:50 EKG EKG EKG interpreted by me. EKG at 0 927 showed normal sinus rhythm at rate of 78, left anderson axis, poor R-wave progress in anteroseptal leads, peak T wave in anterior leads, no acute ischemic event abnormalities. Radiology/Procedures Radiology/Procedures [facility] [address] [place] [address] IMAGING REPORT Signed PATIENT: JOAQUIM TRAORE ACCOUNT: [id number] : 1950 LOCATION: ER AGE: 68 SEX: F EXAM STATUS: REG ER ORD. PHYSICIAN: MARC URIAS MD REASON: left lower quadrant pain PROCEDURE: CT ABDOMEN PELVIS WO CONTRAST CT Abdomen and Pelvis without contrast History: Left lower quadrant pain Technique: Noncontrast CT imaging was performed of the abdomen and pelvis. Multiplanar images are reviewed. Exposure: One or more of the following individualized dose reduction techniques were utilized for this examination: 1. Automated exposure control 2. Adjustment of the mA and/or kV according to patient size 3. Use of iterative reconstruction technique. Comparison: February 05, 2015 CTA exam Findings: There is coronary calcification. There is aortic annular calcification and mitral annular calcification. Accurate evaluation of the abdominal visceral organs is limited without intravenous contrast, no obvious focal abnormality liver, pancreas, spleen. Mild fullness of the left adrenal gland is unchanged. Gallbladder is present without obvious intraluminal abnormality by CT. There is no hydronephrosis or renal calculus, both kidneys small in size. There is fairly prominent calcified plaque of the abdominal aorta and branches. Accurate evaluation of bowel is limited without oral contrast. There is at least moderate wall thickening of the distal descending colon and proximal sigmoid colon with adjacent moderate hazy and strandy inflammatory type change, also diverticula in this region. No free air is identified. No definitive localized intraluminal fluid collection/abscess is identified. Small bowel is not significantly dilated. Appendix is not clearly identified if still present. Impression: 1. There is at least moderate wall thickening of the distal descending colon and proximal sigmoid colon with associated inflammatory change and diverticula, evidence of diverticulitis. Colon screening is advised after resolution of acute symptoms if this has not been performed. 2. There is coronary calcification, also atherosclerotic calcification of abdominal aorta and branches. 3. Both kidneys are small. Electronically signed by: Elena Ruth MD (02/25/2019 10:11 AM) [id number] DICTATED and SIGNED BY: ELENA RUTH MD DATE: 02/25/19 1011 Course & Med Decision Making Course & Med Decision Making Pertinent Labs and Imaging studies reviewed. (See chart for details) Evaluation of patient in ER showed 68-year-old female patient with history of chronic renal failure on dialysis and complaining of left lower quadrant pain since yesterday. Patient had tenderness and rebound tenderness of left lower quadrant and CT of abdomen and pelvis showed acute diverticulitis. Patient felt better with treatment with fentanyl and Zofran. IV fluid was not given because of h/o renal failure on dialysis. 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 Steiner was consulted at 1155 and plans to start dialysis for patient. Patient requiring admission for further evaluation and treatment. Discussed with Dr. Lundberg who is in agreement with admission. Discussed findings and plan with patient and family, who acknowledge understanding and agreement. Dragon Disclaimer Dragon Disclaimer This electronic medical record was generated, in whole or in part, using a voice recognition dictation system. Departure Departure Impression: Primary Impression: Acute diverticulitis Additional Impressions: Hyperkalemia End stage renal failure on dialysis Hypochloremia Hypercalcemia Disposition: 09 ADMITTED INPATIENT (at 1147) Admitting Physician: STACEY (Dr. Lundberg accepted admission at 1146) Condition: GUARDED Referrals: NO PCP (PCP) Critical Care Time Critical care time was 80 minutes exclusive of procedures. Problem Qualifiers MARC URIAS MD Feb 25, 2019 09:45
--- NOTE | 2019-02-25 10:14 | RAD ---
CT Abdomen and Pelvis without contrast History: Left lower quadrant pain Technique: Noncontrast CT imaging was performed of the abdomen and pelvis. Multiplanar images are reviewed. Exposure: One or more of the following individualized dose reduction techniques were utilized for this examination: 1. Automated exposure control 2. Adjustment of the mA and/or kV according to patient size 3. Use of iterative reconstruction technique. Comparison: February 05, 2015 CTA exam Findings: There is coronary calcification. There is aortic annular calcification and mitral annular calcification. Accurate evaluation of the abdominal visceral organs is limited without intravenous contrast, no obvious focal abnormality liver, pancreas, spleen. Mild fullness of the left adrenal gland is unchanged. Gallbladder is present without obvious intraluminal abnormality by CT. There is no hydronephrosis or renal calculus, both kidneys small in size. There is fairly prominent calcified plaque of the abdominal aorta and branches. Accurate evaluation of bowel is limited without oral contrast. There is at least moderate wall thickening of the distal descending colon and proximal sigmoid colon with adjacent moderate hazy and strandy inflammatory type change, also diverticula in this region. No free air is identified. No definitive localized intraluminal fluid collection/abscess is identified. Small bowel is not significantly dilated. Appendix is not clearly identified if still present. Impression: 1. There is at least moderate wall thickening of the distal descending colon and proximal sigmoid colon with associated inflammatory change and diverticula, evidence of diverticulitis. Colon screening is advised after resolution of acute symptoms if this has not been performed. 2. There is coronary calcification, also atherosclerotic calcification of abdominal aorta and branches. 3. Both kidneys are small. Electronically signed by: Ranjit Ruth MD (02/25/2019 10:11 AM) [id number]
[2019-02-25 11:00] LABS: BASO # 0.1 x10^3/uL (0.0-0.2); BASO % 1 % (0-3); EOS # 0.2 x10^3/uL (0.0-0.7); EOS % 2 % (0-3); LYMPH # 0.9 x10^3/uL (1.0-4.8); LYMPH % 8 % (24-48); MEAN CORPUSCULAR HEMOGLOBIN 31 pg (25-35); MEAN CORPUSCULAR HGB CONC 33 g/dL (31-37); MEAN CORPUSCULAR VOLUME 94 fL (79-100); MONO # 0.5 x10^3/uL (0.0-1.1); MONO % 4 % (0-9); NEUT # 9.5 x10^3/uL (1.8-7.7); NEUT % 85 % (31-73); PLATELET COUNT 233 x10^3/uL (140-400); RED BLOOD COUNT 4.13 x10^6/uL (3.50-5.40); RED CELL DISTRIBUTION WIDTH 21.1 % (11.5-14.5); WHITE BLOOD COUNT 11.2 x10^3/uL (4.0-11.0)
[2019-02-25 11:11] LABS: PROTHROMBIN TIME PATIENT 13.1 SEC (11.7-14.0)
[2019-02-25 11:32] LABS: ALBUMIN 3.8 g/dL (3.4-5.0); ALBUMIN/GLOBULIN RATIO 0.8 (1.0-1.7); CALCIUM 10.4 mg/dL (8.5-10.1); CREATININE 9.4 mg/dL (0.6-1.0); TOTAL BILIRUBIN 0.4 mg/dL (0.2-1.0); TOTAL PROTEIN 8.6 g/dL (6.4-8.2)
[2019-02-25 11:34] LABS: POTASSIUM 6.9 mmol/L (3.5-5.1)
[2019-02-25] MEDS ORDERED: INSULIN REGULAR 100 UNIT/ML 3ML VIAL. IV ONE (11:45)
[2019-02-25] MEDS ORDERED: CIPROFLOXACIN 400MG PREMIX 200 ML IV ONE (11:45)
[2019-02-25] MEDS ORDERED: SODIUM POLYSTYRENE SULFON/SORB 15 GM/60 ML ORAL.SUSP PO ONE (11:45)
[2019-02-25] MEDS ORDERED: ALBUTEROL SULFATE 2.5 MG/3 ML NEBU. CONT NEB ONE (11:45)
[2019-02-25] MEDS ORDERED: DEXTROSE 50% 25 GM / 50ML DISP.SYRIN. IV ONE (11:45)
--- NOTE | 2019-02-25 11:49 | EKG ---
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
--- NOTE | 2019-02-25 12:01 | PDOC1 ---
History and Physical Date of Admission Date of Admission DATE: 02/25/19 TIME: 12:00 Identification/Chief Complaint Chief Complaint seen in er ,, 68 year old female who presents with complaining of abdominal pain. Patient had history of chronic renal failure on hemodialysis �3 / with appointment at 4 PM today and complaining of sudden onset of left lower quadrant sharp pain since yesterday as a constant pain with radiation to her back and rated her pain 10 over 10. Patient denies nausea and vomiting, diarrhea, fever and chills, . Past Medical History Past Medical History Past Medical History Past Medical History: Diabetes-Type II, Hypertension, Renal Failure, Other Additional Past Medical Histor: UNKNOWN HX Past Surgical History: Hysterectomy, Other Additional Past Surgical Histo: PERITONEAL CATHERER REMOVED, FISTULA LUE, ABD SURG FOR PERIOTONITIS Alcohol Use: None Drug Use: None fhx htn Past Medical History Cardiovascular: HTN, Hyperlipidemia Pulmonary: No pertinent hx GI: No pertinent hx Heme/Onc: Anemia NOS Hepatobiliary: No pertinent hx Psych: Anxiety Musculoskeletal: Osteoarthritis Infectious disease: Other Renal/: Chronic renal failure Endocrine: Diabetes Past Surgical History Past Surgical History: Hysterectomy, Other Family History Family History: Coronary Artery Disease, Hypertension Social History Smoke: No ALCOHOL: none Drugs: None Cardiovascular: HTN, Hyperlipidemia Pulmonary: No pertinent hx GI: No pertinent hx Heme/Onc: Anemia NOS Hepatobiliary: No pertinent hx Psych: Anxiety Musculoskeletal: Osteoarthritis Infectious disease: Other Renal/: Chronic renal failure Endocrine: Diabetes Dermatology: No pertinent hx Past Surgical History Past Surgical History: Hysterectomy, Other Family History Family History: Coronary Artery Disease, Hypertension Social History Smoke: Quit ALCOHOL: none Drugs: None Current Medications Current Medications Current Medications Fentanyl Citrate (Fentanyl 2ml Vial) 50 mcg 1X ONCE IV Last administered on 02/25/19at 09:52; Start 02/25/19 at 09:30; Stop 02/25/19 at 09:31; Status DC Metronidazole 100 ml @ 100 mls/hr 1X ONCE IV ; Start 02/25/19 at 11:45; Stop 02/25/19 at 12:44 Ciprofloxacin/ Dextrose 200 ml @ 200 mls/hr 1X ONCE IV ; Start 02/25/19 at 11:45; Stop 02/25/19 at 12:44 Fentanyl Citrate (Fentanyl 2ml Vial) 50 mcg 1X ONCE IV ; Start 02/25/19 at 11:45; Stop 02/25/19 at 11:46; Status DC Dextrose (Dextrose 50%-Water Syringe) 25 gm 1X ONCE IV ; Start 02/25/19 at 11:45; Stop 02/25/19 at 11:47; Status DC Insulin Human Regular (HumuLIN R VIAL) 10 unit 1X ONCE IV ; Start 02/25/19 at 11:45; Stop 02/25/19 at 11:47; Status DC Albuterol Sulfate (Ventolin Neb Soln) 10 mg 1X ONCE CONT NEB ; Start 02/25/19 at 11:45; Stop 02/25/19 at 11:47; Status DC Sodium Polystyrene Sulfonate (Kayexalate) 15 gm 1X ONCE PO ; Start 02/25/19 at 11:45; Stop 02/25/19 at 11:47; Status DC Active Scripts Active Reported Miralax (Polyethylene Glycol 3350) 17 Gm Powd.pack 1 Packet PO DAILY Sennosides 8.6 Mg Tablet 8.6 Mg PO DAILYWSUP Metoclopramide Hcl 5 Mg Tablet 5 Mg PO TID Losartan Potassium 100 Mg Tablet 1 Tab PO DAILY Levemir (Insulin Detemir) 100 Unit/1 Ml Vial 10 Unit SQ DAILYWSUP Elise-Monica Tablet (Folic Acid/Vitamin B Comp W-C) 0.8 Mg Tablet 0.8 Mg PO DAILY Procrit (Epoetin Shan) 20,000 Unit/2 Ml Vial 16,000 Unit IJ WEEKLY Carvedilol 25 Mg Tablet 1 Tab PO BID Phoslo (Calcium Acetate) 667 Mg Capsule 2 Cap PO TIDWMEALS Calcitriol 0.25 Mcg Capsule 1 Cap PO DAILY Amlodipine Besylate 5 Mg Tablet 1 Tab PO BID Allergies Allergies: Coded Allergies: No Known Drug Allergies (Unverified , 01/31/15) ROS Review of System Review of Systems Review of Systems Constitutional: Denies fever or chills [] Eyes: Denies change in visual acuity, redness, or eye pain [] HENT: Denies nasal congestion or sore throat [] Respiratory: Denies cough or shortness of breath [] Cardiovascular: No additional information not addressed in HPI [] GI: Reports abdominal pain, constipation, denies nausea, vomiting, bloody stools or diarrhea [] : Denies dysuria or hematuria [] Musculoskeletal: Denies back pain or joint pain [] Integument: Denies rash or skin lesions [] Neurologic: Denies headache, focal weakness or sensory changes [] Endocrine: Denies polyuria or polydipsia [] 14 pt systems were reviewed and found to be within normal limits, except as documented General: YES: Fatigue Hematological and Lymphatic: No: Bleeding Problems, Blood Clots, Blood Transfusions, Brusing, Night Sweats, Pallor, Swollen Lymph Nodes, Other ENDOCRINE: No: Breast Changes, Galactorrhea, Hair Pattern Changes, Hot Flashes, Malaise/lethargy, Mood Swings, Palpitations, Polydipsia/polyuria, Skin Changes, Temperature Intolerance, Unexpected Weight Changes, Other Respiratory: No: Cough, Hemoptysis, Orthopnea, Pleuritic Pain, Shortness of breath, SOB with excertion, Sputum Changes, Stridor, Tachypnea, Wheezing, Other Gastrointestinal: Yes Nausea, Yes Abdominal Pain Physical Exam Physical Exam Physical Exam Physical Exam Constitutional: Well nourished, mild distress, non-toxic appearance. [] HENT: Normocephalic, atraumatic, oropharynx moist.[] Eyes: PERRLA, EOMI, conjunctiva normal, no discharge. [] Neck: Normal range of motion, no tenderness, supple, no stridor. [] Cardiovascular:Heart rate regular rhythm, systolic grade 3/6 murmur Lungs & Thorax: Bilateral breath sounds clear to auscultation [] Abdomen: Bowel sounds normal, soft, right lower quadrant guarding , no masses, no pulsatile masses. [] Skin: Warm, dry, no erythema, no rash. [] Back: No tenderness, no CVA tenderness. [] Extremities: No tenderness, no cyanosis, no clubbing, ROM intact, no edema. [] Neurologic: Alert and oriented X 3, normal motor function, normal sensory function, no focal deficits noted. [] Psychologic: Affect anxious, judgement normal, mood normal. [] General: Alert, Oriented X3, Cooperative HEENT: EOMI Lungs: Normal air movement Breasts: Not examined Abdomen: Soft Rectal Exam: not examined PELVIC: Examination not indicated Extremities: No cyanosis Neuro: Normal speech, Cranial nerves 3-12 NL Psych/Mental Status: Mood NL Vitals Vitals Vital Signs Date Time Temp Pulse Resp B/P (MAP) Pulse Ox O2 Delivery O2 Flow Rate FiO2 02/25/19 10:22 19 96 Room Air 02/25/19 09:10 98.3 83 194/84 (120) 98.3 Labs Labs Laboratory Tests Test 02/25/19 10:50 White Blood Count 11.2 x10^3/uL (4.0-11.0) Red Blood Count 4.13 x10^6/uL (3.50-5.40) Hemoglobin 13.0 g/dL (12.0-15.5) Hematocrit 39.0 % (36.0-47.0) Mean Corpuscular Volume 94 fL (79-100) Mean Corpuscular Hemoglobin 31 pg (25-35) Mean Corpuscular Hemoglobin Concent 33 g/dL (31-37) Red Cell Distribution Width 21.1 % (11.5-14.5) Platelet Count 233 x10^3/uL (140-400) Neutrophils (%) (Auto) 85 % (31-73) Lymphocytes (%) (Auto) 8 % (24-48) Monocytes (%) (Auto) 4 % (0-9) Eosinophils (%) (Auto) 2 % (0-3) Basophils (%) (Auto) 1 % (0-3) Neutrophils # (Auto) 9.5 x10^3/uL (1.8-7.7) Lymphocytes # (Auto) 0.9 x10^3/uL (1.0-4.8) Monocytes # (Auto) 0.5 x10^3/uL (0.0-1.1) Eosinophils # (Auto) 0.2 x10^3/uL (0.0-0.7) Basophils # (Auto) 0.1 x10^3/uL (0.0-0.2) Prothrombin Time 13.1 SEC (11.7-14.0) Prothromb Time International Ratio 1.0 (0.8-1.1) Sodium Level 135 mmol/L (136-145) Potassium Level 6.9 mmol/L (3.5-5.1) Chloride Level 90 mmol/L (98-107) Carbon Dioxide Level 34 mmol/L (21-32) Anion Gap 11 (6-14) Blood Urea Nitrogen 56 mg/dL (7-20) Creatinine 9.4 mg/dL (0.6-1.0) Estimated GFR (Cockcroft-Gault) 5.0 BUN/Creatinine Ratio 6 (6-20) Glucose Level 142 mg/dL (70-99) Calcium Level 10.4 mg/dL (8.5-10.1) Total Bilirubin 0.4 mg/dL (0.2-1.0) Aspartate Amino Transf (AST/SGOT) 15 U/L (15-37) Alanine Aminotransferase (ALT/SGPT) 15 U/L (14-59) Alkaline Phosphatase 140 U/L (46-116) Creatine Kinase 29 U/L (26-192) Total Protein 8.6 g/dL (6.4-8.2) Albumin 3.8 g/dL (3.4-5.0) Albumin/Globulin Ratio 0.8 (1.0-1.7) Lipase 162 U/L (73-393) Laboratory Tests Test 02/25/19 10:50 White Blood Count 11.2 x10^3/uL (4.0-11.0) Red Blood Count 4.13 x10^6/uL (3.50-5.40) Hemoglobin 13.0 g/dL (12.0-15.5) Hematocrit 39.0 % (36.0-47.0) Mean Corpuscular Volume 94 fL (79-100) Mean Corpuscular Hemoglobin 31 pg (25-35) Mean Corpuscular Hemoglobin Concent 33 g/dL (31-37) Red Cell Distribution Width 21.1 % (11.5-14.5) Platelet Count 233 x10^3/uL (140-400) Neutrophils (%) (Auto) 85 % (31-73) Lymphocytes (%) (Auto) 8 % (24-48) Monocytes (%) (Auto) 4 % (0-9) Eosinophils (%) (Auto) 2 % (0-3) Basophils (%) (Auto) 1 % (0-3) Neutrophils # (Auto) 9.5 x10^3/uL (1.8-7.7) Lymphocytes # (Auto) 0.9 x10^3/uL (1.0-4.8) Monocytes # (Auto) 0.5 x10^3/uL (0.0-1.1) Eosinophils # (Auto) 0.2 x10^3/uL (0.0-0.7) Basophils # (Auto) 0.1 x10^3/uL (0.0-0.2) Prothrombin Time 13.1 SEC (11.7-14.0) Prothromb Time International Ratio 1.0 (0.8-1.1) Sodium Level 135 mmol/L (136-145) Potassium Level 6.9 mmol/L (3.5-5.1) Chloride Level 90 mmol/L (98-107) Carbon Dioxide Level 34 mmol/L (21-32) Anion Gap 11 (6-14) Blood Urea Nitrogen 56 mg/dL (7-20) Creatinine 9.4 mg/dL (0.6-1.0) Estimated GFR (Cockcroft-Gault) 5.0 BUN/Creatinine Ratio 6 (6-20) Glucose Level 142 mg/dL (70-99) Calcium Level 10.4 mg/dL (8.5-10.1) Total Bilirubin 0.4 mg/dL (0.2-1.0) Aspartate Amino Transf (AST/SGOT) 15 U/L (15-37) Alanine Aminotransferase (ALT/SGPT) 15 U/L (14-59) Alkaline Phosphatase 140 U/L (46-116) Creatine Kinase 29 U/L (26-192) Total Protein 8.6 g/dL (6.4-8.2) Albumin 3.8 g/dL (3.4-5.0) Albumin/Globulin Ratio 0.8 (1.0-1.7) Lipase 162 U/L (73-393) Images Images CT Abdomen and Pelvis without contrast History: Left lower quadrant pain Technique: Noncontrast CT imaging was performed of the abdomen and pelvis. Multiplanar images are reviewed. Exposure: One or more of the following individualized dose reduction techniques were utilized for this examination: 1. Automated exposure control 2. Adjustment of the mA and/or kV according to patient size 3. Use of iterative reconstruction technique. Comparison: February 05, 2015 CTA exam Findings: There is coronary calcification. There is aortic annular calcification and mitral annular calcification. Accurate evaluation of the abdominal visceral organs is limited without intravenous contrast, no obvious focal abnormality liver, pancreas, spleen. Mild fullness of the left adrenal gland is unchanged. Gallbladder is present without obvious intraluminal abnormality by CT. There is no hydronephrosis or renal calculus, both kidneys small in size. There is fairly prominent calcified plaque of the abdominal aorta and branches. Accurate evaluation of bowel is limited without oral contrast. There is at least moderate wall thickening of the distal descending colon and proximal sigmoid colon with adjacent moderate hazy and strandy inflammatory type change, also diverticula in this region. No free air is identified. No definitive localized intraluminal fluid collection/abscess is identified. Small bowel is not significantly dilated. Appendix is not clearly identified if still present. Impression: 1. There is at least moderate wall thickening of the distal descending colon and proximal sigmoid colon with associated inflammatory change and diverticula, evidence of diverticulitis. Colon screening is advised after resolution of acute symptoms if this has not been performed. 2. There is coronary calcification, also atherosclerotic calcification of abdominal aorta and branches. 3. Both kidneys are small. Electronically signed by: Ranjit Ruth MD (02/25/2019 10:11 AM) [id number] VTE Prophylaxis Ordered VTE Prophylaxis Devices: Yes VTE Pharmacological Prophylaxi: Yes Assessment/Plan Assessment/Plan impression hyperkalemia, severe accelerated hypertension acute diastolic CHF ESRD, fluid overload, moderate wall thickening of the distal descending colon and proximal sigmoid colon with associated inflammatory change and diverticula, evidence of acute diverticulitis. ADMIT consult renal, dialysis ESTELLA tele consult GI dvt prophylaxis, heparin iv cipro, iv flagyl npo frequent labs 78 min pt exam, chart review, > 50% of time spent with exam, chart review, pt care coordination KATIA CARRERO MD Feb 25, 2019 12:01
--- NOTE | 2019-02-25 13:22 | PDOC2 ---
GI CONSULT Reason For Consult: Possible acute diverticulitis HPI: HPI: 68 y/o female evaluated in ER for constant severe LLQ pain x 2 days w/ associated lightheadedness, fever, and sweats. Labs notable for WBC 11.2, K+ 6.9, BUN 56, Cr 9.4 (ESRD on HD on MWF - to dialyze at 4:00 p.m[address] today). CT A/P noted moderate wall thickening of the distal descending and proximal sigmoid colon w/ associated inflammation and diverticula. She was given IV Cipro and Metronidazole x 1 in ER. Denies reflux/heartburn, dysphagia, n/v, diarrhea, hematochezia, melena, change in appetite, or weight loss. H/o constipation controlled w/ Miralax BID. Has leg pain, takes Tylenol. Also takes ASA, no NSAIDs. No previous EGD. Reports normal colonoscopy ~[address] [facility]. No GB, liver, pancreas, or PUD history. 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 PMH: PMH: HTN, COPD, HLD, DM, ESRD on HD, OA, anxiety partial hysterectomy, PD cath placement/removal, LUE fistula FH: Family History: Cancer (sister - colon, sister - breast), CAD, Hypertension Social History: Smoke: Quit ALCOHOL: none Drugs: None ROS: GEN: +fevers +sweats HEENT: Denies blurred vision, sore throat CV: Denies chest pain RESP: Denies shortness of air, cough GI: Per HPI : Denies hematuria, dysuria ENDO: Denies weight changes NEURO: +lightheadedness MSK: +RLE pain SKIN: Denies jaundice, pruritus Vitals: Vitals: Vital Signs Date Time Temp Pulse Resp B/P (MAP) Pulse Ox O2 Delivery O2 Flow Rate FiO2 02/25/19 12:11 95 Room Air 02/25/19 12:07 20 02/25/19 09:10 98.3 83 194/84 (120) 98.3 Labs: Labs: Laboratory Tests Test 02/25/19 10:50 White Blood Count 11.2 x10^3/uL (4.0-11.0) Red Blood Count 4.13 x10^6/uL (3.50-5.40) Hemoglobin 13.0 g/dL (12.0-15.5) Hematocrit 39.0 % (36.0-47.0) Mean Corpuscular Volume 94 fL (79-100) Mean Corpuscular Hemoglobin 31 pg (25-35) Mean Corpuscular Hemoglobin Concent 33 g/dL (31-37) Red Cell Distribution Width 21.1 % (11.5-14.5) Platelet Count 233 x10^3/uL (140-400) Neutrophils (%) (Auto) 85 % (31-73) Lymphocytes (%) (Auto) 8 % (24-48) Monocytes (%) (Auto) 4 % (0-9) Eosinophils (%) (Auto) 2 % (0-3) Basophils (%) (Auto) 1 % (0-3) Neutrophils # (Auto) 9.5 x10^3/uL (1.8-7.7) Lymphocytes # (Auto) 0.9 x10^3/uL (1.0-4.8) Monocytes # (Auto) 0.5 x10^3/uL (0.0-1.1) Eosinophils # (Auto) 0.2 x10^3/uL (0.0-0.7) Basophils # (Auto) 0.1 x10^3/uL (0.0-0.2) Prothrombin Time 13.1 SEC (11.7-14.0) Prothromb Time International Ratio 1.0 (0.8-1.1) Sodium Level 135 mmol/L (136-145) Potassium Level 6.9 mmol/L (3.5-5.1) Chloride Level 90 mmol/L (98-107) Carbon Dioxide Level 34 mmol/L (21-32) Anion Gap 11 (6-14) Blood Urea Nitrogen 56 mg/dL (7-20) Creatinine 9.4 mg/dL (0.6-1.0) Estimated GFR (Cockcroft-Gault) 5.0 BUN/Creatinine Ratio 6 (6-20) Glucose Level 142 mg/dL (70-99) Calcium Level 10.4 mg/dL (8.5-10.1) Total Bilirubin 0.4 mg/dL (0.2-1.0) Aspartate Amino Transf (AST/SGOT) 15 U/L (15-37) Alanine Aminotransferase (ALT/SGPT) 15 U/L (14-59) Alkaline Phosphatase 140 U/L (46-116) Creatine Kinase 29 U/L (26-192) Total Protein 8.6 g/dL (6.4-8.2) Albumin 3.8 g/dL (3.4-5.0) Albumin/Globulin Ratio 0.8 (1.0-1.7) Lipase 162 U/L (73-393) Allergies: Coded Allergies: No Known Drug Allergies (Unverified , 01/31/15) Medications: Current Medications Medications (Trade) Dose Ordered Sig/Aruna Route PRN Reason Start Time Stop Time Status Last Admin Dose Admin Fentanyl Citrate (Fentanyl 2ml Vial) 50 mcg 1X ONCE IV 02/25/19 09:30 02/25/19 09:31 DC 02/25/19 09:52 Metronidazole 100 ml @ 100 mls/hr 1X ONCE IV 02/25/19 11:45 02/25/19 12:44 DC 02/25/19 12:06 Fentanyl Citrate (Fentanyl 2ml Vial) 50 mcg 1X ONCE IV 02/25/19 11:45 02/25/19 11:46 DC 02/25/19 12:07 Dextrose (Dextrose 50%-Water Syringe) 25 gm 1X ONCE IV 02/25/19 11:45 02/25/19 11:47 DC 02/25/19 12:06 Insulin Human Regular (HumuLIN R VIAL) 10 unit 1X ONCE IV 02/25/19 11:45 02/25/19 11:47 DC 02/25/19 12:08 Albuterol Sulfate (Ventolin Neb Soln) 10 mg 1X ONCE CONT NEB 02/25/19 11:45 02/25/19 11:47 DC 02/25/19 12:10 Sodium Polystyrene Sulfonate (Kayexalate) 15 gm 1X ONCE PO 02/25/19 11:45 02/25/19 11:47 DC 02/25/19 12:06 Imaging: Imaging: CT A/P w/o contrast Impression: 1. There is at least moderate wall thickening of the distal descending colon and proximal sigmoid colon with associated inflammatory change and diverticula, evidence of diverticulitis. Colon screening is advised after resolution of acute symptoms if this has not been performed. 2. There is coronary calcification, also atherosclerotic calcification of abdominal aorta and branches. 3. Both kidneys are small. PE: GEN: NAD HEENT: Atraumatic, PERRL LUNGS: nebulizer treatment in process HEART: RRR, no murmurs ABD: NABS, soft, LLQ discomfort - "don't mash on it!" EXTREMITY: No edema SKIN: No rashes, no jaundice NEURO/PSYCH: A & O �3 A/P: A/P: LLQ pain, lightheadedness, sweats - CT suggestive of diverticulitis HTN, ESRD on HD, hyperkalemia CRC screen, FH CRC - UTD H/o constipation - controlled w/ Miralax -- Agree w/ NPO for now, will continue IV atbx. IVF per primary. Outpt colonoscopy in 2-3 months. CHANTEL MONGE Feb 25, 2019 13:22
[2019-02-25 13:24] LABS: % BANDS 2 % (0-9); % LYMPHS 10 % (24-48); % MONOS 4 % (0-10); % SEGS 84 % (35-66); PLT ESTIMATE ADEQUATE (ADEQUATE)
--- NOTE | 2019-02-25 13:50 | PDOC2 ---
CONSULT Date of Consult Date of Consult DATE: 02/25/19 TIME: 13:50 Reason for Consult Reason for Consult: ESRD , Hyperkalemia Source Source: Chart review, Patient History of Present Illness Reason for Visit: 68 year old female who presents with complaining of abdominal pain. ESRD on hemodialysis MWF goes to 4 PM today and complaining of sudden onset of left lo wer quadrant sharp pain since yesterday as a constant pain with radiation to her back and rated her pain 10 over 10. Patient denies nausea and vomiting, diarrhea, fever and chills, . Past Medical History Cardiovascular: HTN, Hyperlipidemia Pulmonary: No pertinent hx GI: No pertinent hx Heme/Onc: Anemia NOS Hepatobiliary: No pertinent hx Psych: Anxiety Musculoskeletal: Osteoarthritis Infectious disease: Other Renal/: Chronic renal failure Endocrine: Diabetes Past Surgical History Past Surgical History: Hysterectomy, Other Family History Family History: Coronary Artery Disease, Hypertension Social History Quit ALCOHOL: none Drugs: None Lives: with Family Domestic Violence: Neg Current Problem List Problem List Problems Medical Problems: (1) Acute diverticulitis Status: Acute (2) End stage renal failure on dialysis Status: Acute (3) Hypercalcemia Status: Acute (4) Hyperkalemia Status: Acute (5) Hypochloremia Status: Acute Current Medications Current Medications Current Medications Fentanyl Citrate (Fentanyl 2ml Vial) 50 mcg 1X ONCE IV Last administered on 02/25/19at 09:52; Start 02/25/19 at 09:30; Stop 02/25/19 at 09:31; Status DC Metronidazole 100 ml @ 100 mls/hr 1X ONCE IV Last administered on 02/25/19at 12:06; Start 02/25/19 at 11:45; Stop 02/25/19 at 12:44; Status DC Ciprofloxacin/ Dextrose 200 ml @ 200 mls/hr 1X ONCE IV ; Start 02/25/19 at 11:45; Stop 02/25/19 at 12:44; Status DC Fentanyl Citrate (Fentanyl 2ml Vial) 50 mcg 1X ONCE IV Last administered on 02/25/19at 12:07; Start 02/25/19 at 11:45; Stop 02/25/19 at 11:46; Status DC Dextrose (Dextrose 50%-Water Syringe) 25 gm 1X ONCE IV Last administered on 02/25/19at 12:06; Start 02/25/19 at 11:45; Stop 02/25/19 at 11:47; Status DC Insulin Human Regular (HumuLIN R VIAL) 10 unit 1X ONCE IV Last administered on 02/25/19at 12:08; Start 02/25/19 at 11:45; Stop 02/25/19 at 11:47; Status DC Albuterol Sulfate (Ventolin Neb Soln) 10 mg 1X ONCE CONT NEB Last administered on 02/25/19at 12:10; Start 02/25/19 at 11:45; Stop 02/25/19 at 11:47; Status DC Sodium Polystyrene Sulfonate (Kayexalate) 15 gm 1X ONCE PO Last administered on 02/25/19at 12:06; Start 02/25/19 at 11:45; Stop 02/25/19 at 11:47; Status DC Metronidazole 100 ml @ 100 mls/hr Q8HRS IV ; Start 02/25/19 at 22:00 Ciprofloxacin/ Dextrose 200 ml @ 200 mls/hr Q24H IV ; Start 02/25/19 at 21:00 Active Scripts Active Reported Miralax (Polyethylene Glycol 3350) 17 Gm Powd.pack 1 Packet PO DAILY Sennosides 8.6 Mg Tablet 8.6 Mg PO DAILYWSUP Metoclopramide Hcl 5 Mg Tablet 5 Mg PO TID Losartan Potassium 100 Mg Tablet 1 Tab PO DAILY Levemir (Insulin Detemir) 100 Unit/1 Ml Vial 10 Unit SQ DAILYWSUP Elise-Monica Tablet (Folic Acid/Vitamin B Comp W-C) 0.8 Mg Tablet 0.8 Mg PO DAILY Procrit (Epoetin Shan) 20,000 Unit/2 Ml Vial 16,000 Unit IJ WEEKLY Carvedilol 25 Mg Tablet 1 Tab PO BID Phoslo (Calcium Acetate) 667 Mg Capsule 2 Cap PO TIDWMEALS Calcitriol 0.25 Mcg Capsule 1 Cap PO DAILY Amlodipine Besylate 5 Mg Tablet 1 Tab PO BID Allergies Allergies: Coded Allergies: No Known Drug Allergies (Unverified , 01/31/15) ROS Review of System Per HPI Physical Exam Physical Exam General: Alert, Oriented X3, Cooperative HEENT: OM moist Lungs: CTA Bilat CV RRR Abdomen: Soft Extremities: No edema Neuro: Grossly Normal No Boyle Vital Signs Vital Signs Date Time Temp Pulse Resp B/P (MAP) Pulse Ox O2 Delivery O2 Flow Rate FiO2 02/25/19 12:11 95 Room Air 7/12/19 12:07 20 02/25/19 09:10 98.3 83 194/84 (120) 98.3 Assessment & Plan ESRD. 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 Labs Labs Laboratory Tests Test 02/25/19 10:50 White Blood Count 11.2 x10^3/uL (4.0-11.0) Red Blood Count 4.13 x10^6/uL (3.50-5.40) Hemoglobin 13.0 g/dL (12.0-15.5) Hematocrit 39.0 % (36.0-47.0) Mean Corpuscular Volume 94 fL (79-100) Mean Corpuscular Hemoglobin 31 pg (25-35) Mean Corpuscular Hemoglobin Concent 33 g/dL (31-37) Red Cell Distribution Width 21.1 % (11.5-14.5) Platelet Count 233 x10^3/uL (140-400) Neutrophils (%) (Auto) 85 % (31-73) Lymphocytes (%) (Auto) 8 % (24-48) Monocytes (%) (Auto) 4 % (0-9) Eosinophils (%) (Auto) 2 % (0-3) Basophils (%) (Auto) 1 % (0-3) Neutrophils # (Auto) 9.5 x10^3/uL (1.8-7.7) Lymphocytes # (Auto) 0.9 x10^3/uL (1.0-4.8) Monocytes # (Auto) 0.5 x10^3/uL (0.0-1.1) Eosinophils # (Auto) 0.2 x10^3/uL (0.0-0.7) Basophils # (Auto) 0.1 x10^3/uL (0.0-0.2) Segmented Neutrophils % 84 % (35-66) Band Neutrophils % 2 % (0-9) Lymphocytes % 10 % (24-48) Monocytes % 4 % (0-10) Platelet Estimate Adequate (ADEQUATE) Prothrombin Time 13.1 SEC (11.7-14.0) Prothromb Time International Ratio 1.0 (0.8-1.1) Sodium Level 135 mmol/L (136-145) Potassium Level 6.9 mmol/L (3.5-5.1) Chloride Level 90 mmol/L (98-107) Carbon Dioxide Level 34 mmol/L (21-32) Anion Gap 11 (6-14) Blood Urea Nitrogen 56 mg/dL (7-20) Creatinine 9.4 mg/dL (0.6-1.0) Estimated GFR (Cockcroft-Gault) 5.0 BUN/Creatinine Ratio 6 (6-20) Glucose Level 142 mg/dL (70-99) Calcium Level 10.4 mg/dL (8.5-10.1) Total Bilirubin 0.4 mg/dL (0.2-1.0) Aspartate Amino Transf (AST/SGOT) 15 U/L (15-37) Alanine Aminotransferase (ALT/SGPT) 15 U/L (14-59) Alkaline Phosphatase 140 U/L (46-116) Creatine Kinase 29 U/L (26-192) Total Protein 8.6 g/dL (6.4-8.2) Albumin 3.8 g/dL (3.4-5.0) Albumin/Globulin Ratio 0.8 (1.0-1.7) Lipase 162 U/L (73-393) Laboratory Tests Test 02/25/19 10:50 White Blood Count 11.2 x10^3/uL (4.0-11.0) Red Blood Count 4.13 x10^6/uL (3.50-5.40) Hemoglobin 13.0 g/dL (12.0-15.5) Hematocrit 39.0 % (36.0-47.0) Mean Corpuscular Volume 94 fL (79-100) Mean Corpuscular Hemoglobin 31 pg (25-35) Mean Corpuscular Hemoglobin Concent 33 g/dL (31-37) Red Cell Distribution Width 21.1 % (11.5-14.5) Platelet Count 233 x10^3/uL (140-400) Neutrophils (%) (Auto) 85 % (31-73) Lymphocytes (%) (Auto) 8 % (24-48) Monocytes (%) (Auto) 4 % (0-9) Eosinophils (%) (Auto) 2 % (0-3) Basophils (%) (Auto) 1 % (0-3) Neutrophils # (Auto) 9.5 x10^3/uL (1.8-7.7) Lymphocytes # (Auto) 0.9 x10^3/uL (1.0-4.8) Monocytes # (Auto) 0.5 x10^3/uL (0.0-1.1) Eosinophils # (Auto) 0.2 x10^3/uL (0.0-0.7) Basophils # (Auto) 0.1 x10^3/uL (0.0-0.2) Segmented Neutrophils % 84 % (35-66) Band Neutrophils % 2 % (0-9) Lymphocytes % 10 % (24-48) Monocytes % 4 % (0-10) Platelet Estimate Adequate (ADEQUATE) Prothrombin Time 13.1 SEC (11.7-14.0) Prothromb Time International Ratio 1.0 (0.8-1.1) Sodium Level 135 mmol/L (136-145) Potassium Level 6.9 mmol/L (3.5-5.1) Chloride Level 90 mmol/L (98-107) Carbon Dioxide Level 34 mmol/L (21-32) Anion Gap 11 (6-14) Blood Urea Nitrogen 56 mg/dL (7-20) Creatinine 9.4 mg/dL (0.6-1.0) Estimated GFR (Cockcroft-Gault) 5.0 BUN/Creatinine Ratio 6 (6-20) Glucose Level 142 mg/dL (70-99) Calcium Level 10.4 mg/dL (8.5-10.1) Total Bilirubin 0.4 mg/dL (0.2-1.0) Aspartate Amino Transf (AST/SGOT) 15 U/L (15-37) Alanine Aminotransferase (ALT/SGPT) 15 U/L (14-59) Alkaline Phosphatase 140 U/L (46-116) Creatine Kinase 29 U/L (26-192) Total Protein 8.6 g/dL (6.4-8.2) Albumin 3.8 g/dL (3.4-5.0) Albumin/Globulin Ratio 0.8 (1.0-1.7) Lipase 162 U/L (73-393) Review All relevant outside records, renal labs, imaging studies, telemetry/EKG's were reviewed. Images Images CT A/P w/o contrast Impression: 1. There is at least moderate wall thickening of the distal descending colon and proximal sigmoid colon with associated inflammatory change and diverticula, evidence of diverticulitis. Colon screening is advised after resolution of acute symptoms if this has not been performed. 2. There is coronary calcification, also atherosclerotic calcification of abdominal aorta and branches. 3. Both kidneys are small. ELIEL VIVAR MD Feb 25, 2019 13:50
[2019-02-25] MEDS: fentaNYL PF VIAL 100 MCG/2 ML VIAL IV PRN ×2 (14:06→19:48)
[2019-02-25 15:00] VITALS: BP 158/72
[2019-02-25] MEDS: METOCLOPRAMIDE 5 MG TABLET. PO SCH (16:30)
[2019-02-25] MEDS: INSULIN GLARGINE 300 UNITS/3 ML INSULN.PEN. SQ SCH (17:00)
[2019-02-25] MEDS: CARVEDILOL 12.5 MG TABLET. PO SCH (17:00)
--- NOTE | 2019-02-25 18:54 | NUR ---
Patient transferred from dialysis to room 665 at 1820.
[2019-02-25 19:00] VITALS: BP 158/73
[2019-02-25] MEDS: SENNOSIDES 8.6 MG TABLET PO SCH (20:55)
[2019-02-25] MEDS: CALCIUM ACETATE 667 MG CAPSULE PO SCH (20:57)
[2019-02-25] MEDS: CIPROFLOXACIN 400MG PREMIX 200 ML IV SCH (22:41)
[2019-02-25] MEDS: amLODIPine BESYLATE 5 MG TABLET PO SCH (22:41)
[2019-02-25] MEDS: HEPARIN for SUB-Q USE 5,000 UNIT/ML VIAL. SQ SCH (22:47)
[2019-02-25 23:00] VITALS: BP 133/64
[2019-02-26] MEDS: fentaNYL PF VIAL 100 MCG/2 ML VIAL IV PRN ×4 (00:10→22:39)
[2019-02-26 02:52] VITALS: BP 139/63
[2019-02-26 05:25] LABS: BASO % 1 % (0-3); EOS # 0.2 x10^3/uL (0.0-0.7); EOS % 3 % (0-3); HEMATOCRIT 34.9 % (36.0-47.0); HEMOGLOBIN 11.6 g/dL (12.0-15.5); LYMPH # 0.8 x10^3/uL (1.0-4.8); LYMPH % 12 % (24-48); MEAN CORPUSCULAR HEMOGLOBIN 32 pg (25-35); MEAN CORPUSCULAR HGB CONC 33 g/dL (31-37); MEAN CORPUSCULAR VOLUME 95 fL (79-100); MONO # 0.5 x10^3/uL (0.0-1.1); MONO % 8 % (0-9); NEUT # 4.9 x10^3/uL (1.8-7.7); NEUT % 77 % (31-73); PLATELET COUNT 217 x10^3/uL (140-400); RED BLOOD COUNT 3.68 x10^6/uL (3.50-5.40); RED CELL DISTRIBUTION WIDTH 20.4 % (11.5-14.5); WHITE BLOOD COUNT 6.3 x10^3/uL (4.0-11.0)
[2019-02-26 05:33] LABS: ALBUMIN 3.2 g/dL (3.4-5.0); ALBUMIN/GLOBULIN RATIO 0.7 (1.0-1.7); CALCIUM 9.4 mg/dL (8.5-10.1); CREATININE 5.9 mg/dL (0.6-1.0); GFR 8.6; POTASSIUM 4.7 mmol/L (3.5-5.1); TOTAL BILIRUBIN 0.5 mg/dL (0.2-1.0); TOTAL PROTEIN 7.6 g/dL (6.4-8.2)
[2019-02-26] MEDS: HEPARIN for SUB-Q USE 5,000 UNIT/ML VIAL. SQ SCH ×3 (06:17→22:45)
[2019-02-26 07:30] VITALS: BP 136/60
[2019-02-26] MEDS: CALCIUM ACETATE 667 MG CAPSULE PO SCH ×3 (08:00→17:00)
--- NOTE | 2019-02-26 08:46 | PDOC ---
PROGRESS NOTES Chief Complaint Chief Complaint Hyperkalemia Hypercalcemia Accelerated hypertension Acute diastolic CHF ESRD Diverticulitis - with Moderate wall thickening of the distal descending colon and proximal sigmoid colon with associated inflammatory change and diverticula DM2 - basal bolus plus insulin History of Present Illness History of Present Illness Ms Garcia is a 68 y/o F w/ PMHx HTN, COPD, HLD, DM, ESRD on HD, OA, anxiety who came into ER for constant severe LLQ pain x 2 days w/ associated lightheadedness, fever, and sweats. Labs notable for WBC 11.2, K+ 6.9, BUN 56, Cr 9.4. CT A/P noted moderate wall thickening of the distal descending and proximal sigmoid colon w/ associated inflammation and diverticula. She was given IV Cipro and Metronidazole x 1 in ER and went for urgent dialysis for hyperkalemia. Seen by GI and nephrology in consultation. Feeling a bit improved. She very much wants to eat, however, still has pretty severe abdominal pain. I have let her know if GI is ok she could possibly start clears later tonight or tomorrow morning. Vitals Vitals Vital Signs Date Time Temp Pulse Resp B/P (MAP) Pulse Ox O2 Delivery O2 Flow Rate FiO2 02/26/19 07:30 97.7 87 18 136/60 (85) 97 Room Air 97.7 Physical Exam General: Alert, Oriented X3, Cooperative Lungs: Crackles, Other Abdomen: Soft Extremities: No cyanosis Labs LABS Laboratory Tests Test 02/25/19 10:50 02/25/19 20:19 02/26/19 04:20 02/26/19 07:28 White Blood Count 11.2 x10^3/uL (4.0-11.0) 6.3 x10^3/uL (4.0-11.0) Red Blood Count 4.13 x10^6/uL (3.50-5.40) 3.68 x10^6/uL (3.50-5.40) Hemoglobin 13.0 g/dL (12.0-15.5) 11.6 g/dL (12.0-15.5) Hematocrit 39.0 % (36.0-47.0) 34.9 % (36.0-47.0) Mean Corpuscular Volume 94 fL (79-100) 95 fL (79-100) Mean Corpuscular Hemoglobin 31 pg (25-35) 32 pg (25-35) Mean Corpuscular Hemoglobin Concent 33 g/dL (31-37) 33 g/dL (31-37) Red Cell Distribution Width 21.1 % (11.5-14.5) 20.4 % (11.5-14.5) Platelet Count 233 x10^3/uL (140-400) 217 x10^3/uL (140-400) Neutrophils (%) (Auto) 85 % (31-73) 77 % (31-73) Lymphocytes (%) (Auto) 8 % (24-48) 12 % (24-48) Monocytes (%) (Auto) 4 % (0-9) 8 % (0-9) Eosinophils (%) (Auto) 2 % (0-3) 3 % (0-3) Basophils (%) (Auto) 1 % (0-3) 1 % (0-3) Neutrophils # (Auto) 9.5 x10^3/uL (1.8-7.7) 4.9 x10^3/uL (1.8-7.7) Lymphocytes # (Auto) 0.9 x10^3/uL (1.0-4.8) 0.8 x10^3/uL (1.0-4.8) Monocytes # (Auto) 0.5 x10^3/uL (0.0-1.1) 0.5 x10^3/uL (0.0-1.1) Eosinophils # (Auto) 0.2 x10^3/uL (0.0-0.7) 0.2 x10^3/uL (0.0-0.7) Basophils # (Auto) 0.1 x10^3/uL (0.0-0.2) 0.0 x10^3/uL (0.0-0.2) Segmented Neutrophils % 84 % (35-66) Band Neutrophils % 2 % (0-9) Lymphocytes % 10 % (24-48) Monocytes % 4 % (0-10) Platelet Estimate Adequate (ADEQUATE) Prothrombin Time 13.1 SEC (11.7-14.0) Prothromb Time International Ratio 1.0 (0.8-1.1) Sodium Level 135 mmol/L (136-145) 136 mmol/L (136-145) Potassium Level 6.9 mmol/L (3.5-5.1) 4.7 mmol/L (3.5-5.1) Chloride Level 90 mmol/L (98-107) 97 mmol/L (98-107) Carbon Dioxide Level 34 mmol/L (21-32) 34 mmol/L (21-32) Anion Gap 11 (6-14) 5 (6-14) Blood Urea Nitrogen 56 mg/dL (7-20) 27 mg/dL (7-20) Creatinine 9.4 mg/dL (0.6-1.0) 5.9 mg/dL (0.6-1.0) Estimated GFR (Cockcroft-Gault) 5.0 8.6 BUN/Creatinine Ratio 6 (6-20) 5 (6-20) Glucose Level 142 mg/dL (70-99) 146 mg/dL (70-99) Calcium Level 10.4 mg/dL (8.5-10.1) 9.4 mg/dL (8.5-10.1) Total Bilirubin 0.4 mg/dL (0.2-1.0) 0.5 mg/dL (0.2-1.0) Aspartate Amino Transf (AST/SGOT) 15 U/L (15-37) 15 U/L (15-37) Alanine Aminotransferase (ALT/SGPT) 15 U/L (14-59) 12 U/L (14-59) Alkaline Phosphatase 140 U/L (46-116) 120 U/L (46-116) Creatine Kinase 29 U/L (26-192) Total Protein 8.6 g/dL (6.4-8.2) 7.6 g/dL (6.4-8.2) Albumin 3.8 g/dL (3.4-5.0) 3.2 g/dL (3.4-5.0) Albumin/Globulin Ratio 0.8 (1.0-1.7) 0.7 (1.0-1.7) Lipase 162 U/L (73-393) Glucose (Fingerstick) 191 mg/dL (70-99) 140 mg/dL (70-99) Assessment and Plan Assessmemt and Plan Problems Medical Problems: (1) Acute diverticulitis Status: Acute (2) End stage renal failure on dialysis Status: Acute (3) Hypercalcemia Status: Acute (4) Hyperkalemia Status: Acute (5) Hypochloremia Status: Acute Comment Review of Relevant I have reviewed the following items (where applicable) has been applied. Labs Laboratory Tests Test 02/25/19 10:50 02/25/19 20:19 02/26/19 04:20 02/26/19 07:28 White Blood Count 11.2 x10^3/uL (4.0-11.0) 6.3 x10^3/uL (4.0-11.0) Red Blood Count 4.13 x10^6/uL (3.50-5.40) 3.68 x10^6/uL (3.50-5.40) Hemoglobin 13.0 g/dL (12.0-15.5) 11.6 g/dL (12.0-15.5) Hematocrit 39.0 % (36.0-47.0) 34.9 % (36.0-47.0) Mean Corpuscular Volume 94 fL (79-100) 95 fL (79-100) Mean Corpuscular Hemoglobin 31 pg (25-35) 32 pg (25-35) Mean Corpuscular Hemoglobin Concent 33 g/dL (31-37) 33 g/dL (31-37) Red Cell Distribution Width 21.1 % (11.5-14.5) 20.4 % (11.5-14.5) Platelet Count 233 x10^3/uL (140-400) 217 x10^3/uL (140-400) Neutrophils (%) (Auto) 85 % (31-73) 77 % (31-73) Lymphocytes (%) (Auto) 8 % (24-48) 12 % (24-48) Monocytes (%) (Auto) 4 % (0-9) 8 % (0-9) Eosinophils (%) (Auto) 2 % (0-3) 3 % (0-3) Basophils (%) (Auto) 1 % (0-3) 1 % (0-3) Neutrophils # (Auto) 9.5 x10^3/uL (1.8-7.7) 4.9 x10^3/uL (1.8-7.7) Lymphocytes # (Auto) 0.9 x10^3/uL (1.0-4.8) 0.8 x10^3/uL (1.0-4.8) Monocytes # (Auto) 0.5 x10^3/uL (0.0-1.1) 0.5 x10^3/uL (0.0-1.1) Eosinophils # (Auto) 0.2 x10^3/uL (0.0-0.7) 0.2 x10^3/uL (0.0-0.7) Basophils # (Auto) 0.1 x10^3/uL (0.0-0.2) 0.0 x10^3/uL (0.0-0.2) Segmented Neutrophils % 84 % (35-66) Band Neutrophils % 2 % (0-9) Lymphocytes % 10 % (24-48) Monocytes % 4 % (0-10) Platelet Estimate Adequate (ADEQUATE) Prothrombin Time 13.1 SEC (11.7-14.0) Prothromb Time International Ratio 1.0 (0.8-1.1) Sodium Level 135 mmol/L (136-145) 136 mmol/L (136-145) Potassium Level 6.9 mmol/L (3.5-5.1) 4.7 mmol/L (3.5-5.1) Chloride Level 90 mmol/L (98-107) 97 mmol/L (98-107) Carbon Dioxide Level 34 mmol/L (21-32) 34 mmol/L (21-32) Anion Gap 11 (6-14) 5 (6-14) Blood Urea Nitrogen 56 mg/dL (7-20) 27 mg/dL (7-20) Creatinine 9.4 mg/dL (0.6-1.0) 5.9 mg/dL (0.6-1.0) Estimated GFR (Cockcroft-Gault) 5.0 8.6 BUN/Creatinine Ratio 6 (6-20) 5 (6-20) Glucose Level 142 mg/dL (70-99) 146 mg/dL (70-99) Calcium Level 10.4 mg/dL (8.5-10.1) 9.4 mg/dL (8.5-10.1) Total Bilirubin 0.4 mg/dL (0.2-1.0) 0.5 mg/dL (0.2-1.0) Aspartate Amino Transf (AST/SGOT) 15 U/L (15-37) 15 U/L (15-37) Alanine Aminotransferase (ALT/SGPT) 15 U/L (14-59) 12 U/L (14-59) Alkaline Phosphatase 140 U/L (46-116) 120 U/L (46-116) Creatine Kinase 29 U/L (26-192) Total Protein 8.6 g/dL (6.4-8.2) 7.6 g/dL (6.4-8.2) Albumin 3.8 g/dL (3.4-5.0) 3.2 g/dL (3.4-5.0) Albumin/Globulin Ratio 0.8 (1.0-1.7) 0.7 (1.0-1.7) Lipase 162 U/L (73-393) Glucose (Fingerstick) 191 mg/dL (70-99) 140 mg/dL (70-99) Laboratory Tests Test 02/25/19 10:50 02/25/19 20:19 02/26/19 04:20 02/26/19 07:28 White Blood Count 11.2 x10^3/uL (4.0-11.0) 6.3 x10^3/uL (4.0-11.0) Red Blood Count 4.13 x10^6/uL (3.50-5.40) 3.68 x10^6/uL (3.50-5.40) Hemoglobin 13.0 g/dL (12.0-15.5) 11.6 g/dL (12.0-15.5) Hematocrit 39.0 % (36.0-47.0) 34.9 % (36.0-47.0) Mean Corpuscular Volume 94 fL (79-100) 95 fL (79-100) Mean Corpuscular Hemoglobin 31 pg (25-35) 32 pg (25-35) Mean Corpuscular Hemoglobin Concent 33 g/dL (31-37) 33 g/dL (31-37) Red Cell Distribution Width 21.1 % (11.5-14.5) 20.4 % (11.5-14.5) Platelet Count 233 x10^3/uL (140-400) 217 x10^3/uL (140-400) Neutrophils (%) (Auto) 85 % (31-73) 77 % (31-73) Lymphocytes (%) (Auto) 8 % (24-48) 12 % (24-48) Monocytes (%) (Auto) 4 % (0-9) 8 % (0-9) Eosinophils (%) (Auto) 2 % (0-3) 3 % (0-3) Basophils (%) (Auto) 1 % (0-3) 1 % (0-3) Neutrophils # (Auto) 9.5 x10^3/uL (1.8-7.7) 4.9 x10^3/uL (1.8-7.7) Lymphocytes # (Auto) 0.9 x10^3/uL (1.0-4.8) 0.8 x10^3/uL (1.0-4.8) Monocytes # (Auto) 0.5 x10^3/uL (0.0-1.1) 0.5 x10^3/uL (0.0-1.1) Eosinophils # (Auto) 0.2 x10^3/uL (0.0-0.7) 0.2 x10^3/uL (0.0-0.7) Basophils # (Auto) 0.1 x10^3/uL (0.0-0.2) 0.0 x10^3/uL (0.0-0.2) Segmented Neutrophils % 84 % (35-66) Band Neutrophils % 2 % (0-9) Lymphocytes % 10 % (24-48) Monocytes % 4 % (0-10) Platelet Estimate Adequate (ADEQUATE) Prothrombin Time 13.1 SEC (11.7-14.0) Prothromb Time International Ratio 1.0 (0.8-1.1) Sodium Level 135 mmol/L (136-145) 136 mmol/L (136-145) Potassium Level 6.9 mmol/L (3.5-5.1) 4.7 mmol/L (3.5-5.1) Chloride Level 90 mmol/L (98-107) 97 mmol/L (98-107) Carbon Dioxide Level 34 mmol/L (21-32) 34 mmol/L (21-32) Anion Gap 11 (6-14) 5 (6-14) Blood Urea Nitrogen 56 mg/dL (7-20) 27 mg/dL (7-20) Creatinine 9.4 mg/dL (0.6-1.0) 5.9 mg/dL (0.6-1.0) Estimated GFR (Cockcroft-Gault) 5.0 8.6 BUN/Creatinine Ratio 6 (6-20) 5 (6-20) Glucose Level 142 mg/dL (70-99) 146 mg/dL (70-99) Calcium Level 10.4 mg/dL (8.5-10.1) 9.4 mg/dL (8.5-10.1) Total Bilirubin 0.4 mg/dL (0.2-1.0) 0.5 mg/dL (0.2-1.0) Aspartate Amino Transf (AST/SGOT) 15 U/L (15-37) 15 U/L (15-37) Alanine Aminotransferase (ALT/SGPT) 15 U/L (14-59) 12 U/L (14-59) Alkaline Phosphatase 140 U/L (46-116) 120 U/L (46-116) Creatine Kinase 29 U/L (26-192) Total Protein 8.6 g/dL (6.4-8.2) 7.6 g/dL (6.4-8.2) Albumin 3.8 g/dL (3.4-5.0) 3.2 g/dL (3.4-5.0) Albumin/Globulin Ratio 0.8 (1.0-1.7) 0.7 (1.0-1.7) Lipase 162 U/L (73-393) Glucose (Fingerstick) 191 mg/dL (70-99) 140 mg/dL (70-99) Medications Current Medications Fentanyl Citrate (Fentanyl 2ml Vial) 50 mcg 1X ONCE IV Last administered on 02/25/19at 09:52; Start 02/25/19 at 09:30; Stop 02/25/19 at 09:31; Status DC Metronidazole 100 ml @ 100 mls/hr 1X ONCE IV Last administered on 02/25/19at 12:06; Start 02/25/19 at 11:45; Stop 02/25/19 at 12:44; Status DC Ciprofloxacin/ Dextrose 200 ml @ 200 mls/hr 1X ONCE IV Last administered on 02/25/19at 13:56; Start 02/25/19 at 11:45; Stop 02/25/19 at 12:44; Status DC Fentanyl Citrate (Fentanyl 2ml Vial) 50 mcg 1X ONCE IV Last administered on 02/25/19at 12:07; Start 02/25/19 at 11:45; Stop 02/25/19 at 11:46; Status DC Dextrose (Dextrose 50%-Water Syringe) 25 gm 1X ONCE IV Last administered on 02/25/19at 12:06; Start 02/25/19 at 11:45; Stop 02/25/19 at 11:47; Status DC Insulin Human Regular (HumuLIN R VIAL) 10 unit 1X ONCE IV Last administered on 02/25/19at 12:08; Start 02/25/19 at 11:45; Stop 02/25/19 at 11:47; Status DC Albuterol Sulfate (Ventolin Neb Soln) 10 mg 1X ONCE CONT NEB Last administered on 02/25/19at 12:10; Start 02/25/19 at 11:45; Stop 02/25/19 at 11:47; Status DC Sodium Polystyrene Sulfonate (Kayexalate) 15 gm 1X ONCE PO Last administered on 02/25/19at 12:06; Start 02/25/19 at 11:45; Stop 02/25/19 at 11:47; Status DC Metronidazole 100 ml @ 100 mls/hr Q8HRS IV Last administered on 02/26/19at 06:01; Start 02/25/19 at 22:00 Ciprofloxacin/ Dextrose 200 ml @ 200 mls/hr Q24H IV Last administered on 02/25/19at 22:41; Start 02/25/19 at 21:00 Fentanyl Citrate (Fentanyl 2ml Vial) 50 mcg PRN Q4HRS PRN IV PAIN Last administered on 02/26/19at 00:10; Start 02/25/19 at 14:00 Amlodipine Besylate (Norvasc) 5 mg BID PO Last administered on 02/25/19at 22:41; Start 02/25/19 at 21:00 Calcium Acetate (Phoslo) 1,334 mg TIDWMEALS PO ; Start 02/25/19 at 17:00 Vitamin B Complex/ Vitamin C (Elise-Monica) 1 tab DAILY PO ; Start 02/26/19 at 09:00 Metoclopramide HCl (Reglan) 5 mg TIDAC PO ; Start 02/25/19 at 16:30 Calcitriol (Rocaltrol) 0.25 mcg DAILY PO ; Start 02/26/19 at 09:00 Carvedilol (Coreg) 25 mg BIDWMEALS PO ; Start 02/25/19 at 17:00 Non-Formulary Medication (Epoetin Shan (Procrit)) 16,000 unit WEEKLY IJ ; Start 03/04/19 at 09:00; Status UNV Insulin Glargine (Lantus) 10 units DAILYWSUP SQ ; Start 02/25/19 at 17:00 Losartan Potassium (Cozaar) 100 mg DAILY PO ; Start 02/26/19 at 09:00 Polyethylene Glycol (miraLAX PACKET) 17 gm DAILY PO ; Start 02/26/19 at 09:00 Sennosides (Senna) 8.6 mg DAILYWSUP PO ; Start 02/25/19 at 17:00 Heparin Sodium (Porcine) (Heparin Sodium) 5,000 unit Q8HRS SQ Last administered on 02/26/19at 06:17; Start 02/25/19 at 22:00 Active Scripts Active Reported Miralax (Polyethylene Glycol 3350) 17 Gm Powd.pack 1 Packet PO DAILY Sennosides 8.6 Mg Tablet 8.6 Mg PO DAILYWSUP Metoclopramide Hcl 5 Mg Tablet 5 Mg PO TID Losartan Potassium 100 Mg Tablet 1 Tab PO DAILY Levemir (Insulin Detemir) 100 Unit/1 Ml Vial 10 Unit SQ DAILYWSUP Elise-Monica Tablet (Folic Acid/Vitamin B Comp W-C) 0.8 Mg Tablet 0.8 Mg PO DAILY Procrit (Epoetin Shan) 20,000 Unit/2 Ml Vial 16,000 Unit IJ WEEKLY Carvedilol 25 Mg Tablet 1 Tab PO BID Phoslo (Calcium Acetate) 667 Mg Capsule 2 Cap PO TIDWMEALS Calcitriol 0.25 Mcg Capsule 1 Cap PO DAILY Amlodipine Besylate 5 Mg Tablet 1 Tab PO BID Vitals/I & O Vital Sign - Last 24 Hours 02/25/19 02/25/19 02/25/19 02/25/19 09:10 09:46 09:52 10:15 Temp 98.3 98.3 Pulse 83 74 74 Resp 20 19 20 B/P (MAP) 194/84 (120) 158/70 (99) 192/86 (121) Pulse Ox 97 98 99 98 O2 Delivery Room Air Room Air Room Air Room Air 02/25/19 02/25/19 02/25/19 02/25/19 10:22 11:14 11:15 11:45 Pulse 78 78 78 Resp 19 15 15 24 B/P (MAP) 228/98 (141) 201/85 (123) 186/86 (119) Pulse Ox 96 98 99 98 O2 Delivery Room Air Room Air Room Air Room Air 02/25/19 02/25/19 02/25/19 02/25/19 12:07 12:11 12:15 12:45 Pulse 80 84 Resp 20 20 15 B/P (MAP) 177/82 (113) 149/74 (99) Pulse Ox 100 95 99 92 O2 Delivery Room Air Room Air Room Air Room Air 02/25/19 02/25/19 02/25/19 02/25/19 12:53 14:06 14:36 15:00 Temp 98.3 98.3 Pulse 86 87 Resp 16 16 16 17 B/P (MAP) 147/66 (93) 158/72 (100) Pulse Ox 94 95 100 O2 Delivery Room Air Room Air Room Air 02/25/19 02/25/19 02/25/19 02/25/19 18:07 19:00 19:48 20:00 Temp 99.4 99.4 Pulse 93 Resp 17 B/P (MAP) 158/73 (101) Pulse Ox 99 O2 Delivery Room Air Room Air Room Air Room Air 02/25/19 02/25/19 02/26/19 02/26/19 22:41 23:00 00:50 02:52 Temp 98.9 98.6 98.9 98.6 Pulse 93 86 80 Resp 17 18 B/P (MAP) 158/73 133/64 (87) 139/63 (88) Pulse Ox 94 95 O2 Delivery Room Air Room Air Room Air 02/26/19 07:30 Temp 97.7 97.7 Pulse 87 Resp 18 B/P (MAP) 136/60 (85) Pulse Ox 97 O2 Delivery Room Air Intake and Output 02/25/19 02/25/19 02/26/19 15:00 23:00 07:00 Intake Total 400 ml 0 ml Balance 400 ml [address] abdomen - 1. There is at least moderate wall thickening of the distal descending colon and proximal sigmoid colon with associated inflammatory change and diverticula, evidence of diverticulitis. Colon screening is advised after resolution of acute symptoms if this has not been performed. 2. There is coronary calcification, also atherosclerotic calcification of abdominal aorta and branches. 3. Both kidneys are small. IRIS SANTIAGO MD Feb 26, 2019 08:46
[2019-02-26] MEDS: LOSARTAN POTASSIUM 50 MG TABLET. PO SCH (08:48)
[2019-02-26] MEDS: METOCLOPRAMIDE 5 MG TABLET. PO SCH ×3 (08:48→16:30)
[2019-02-26] MEDS: CARVEDILOL 12.5 MG TABLET. PO SCH ×2 (08:48→17:50)
[2019-02-26] MEDS: amLODIPine BESYLATE 5 MG TABLET PO SCH ×2 (08:49→22:42)
[2019-02-26] MEDS: FOLIC/VIT B COMP W-C (RENAL) TABLET. PO SCH (08:54)
[2019-02-26] MEDS: POLYETHYLENE GLYCOL 3350 17 GM PACKET. PO SCH (08:54)
[2019-02-26] MEDS: CALCITRIOL 0.25 MCG CAPSULE. PO SCH (08:54)
--- NOTE | 2019-02-26 11:02 | PDOC ---
G I PROGRESS NOTE Subjective Pain persists. Would like to eat, though. Passing flatus, not stool. Physical Exam Lungs clear. RRR Abdomen soft, not distended. Quite tender LLQ. Review of Relevant I have reviewed the following items (where applicable) has been applied. Labs Laboratory Tests Test 02/25/19 10:50 02/25/19 20:19 02/26/19 04:20 02/26/19 07:28 White Blood Count 11.2 x10^3/uL (4.0-11.0) 6.3 x10^3/uL (4.0-11.0) Red Blood Count 4.13 x10^6/uL (3.50-5.40) 3.68 x10^6/uL (3.50-5.40) Hemoglobin 13.0 g/dL (12.0-15.5) 11.6 g/dL (12.0-15.5) Hematocrit 39.0 % (36.0-47.0) 34.9 % (36.0-47.0) Mean Corpuscular Volume 94 fL (79-100) 95 fL (79-100) Mean Corpuscular Hemoglobin 31 pg (25-35) 32 pg (25-35) Mean Corpuscular Hemoglobin Concent 33 g/dL (31-37) 33 g/dL (31-37) Red Cell Distribution Width 21.1 % (11.5-14.5) 20.4 % (11.5-14.5) Platelet Count 233 x10^3/uL (140-400) 217 x10^3/uL (140-400) Neutrophils (%) (Auto) 85 % (31-73) 77 % (31-73) Lymphocytes (%) (Auto) 8 % (24-48) 12 % (24-48) Monocytes (%) (Auto) 4 % (0-9) 8 % (0-9) Eosinophils (%) (Auto) 2 % (0-3) 3 % (0-3) Basophils (%) (Auto) 1 % (0-3) 1 % (0-3) Neutrophils # (Auto) 9.5 x10^3/uL (1.8-7.7) 4.9 x10^3/uL (1.8-7.7) Lymphocytes # (Auto) 0.9 x10^3/uL (1.0-4.8) 0.8 x10^3/uL (1.0-4.8) Monocytes # (Auto) 0.5 x10^3/uL (0.0-1.1) 0.5 x10^3/uL (0.0-1.1) Eosinophils # (Auto) 0.2 x10^3/uL (0.0-0.7) 0.2 x10^3/uL (0.0-0.7) Basophils # (Auto) 0.1 x10^3/uL (0.0-0.2) 0.0 x10^3/uL (0.0-0.2) Segmented Neutrophils % 84 % (35-66) Band Neutrophils % 2 % (0-9) Lymphocytes % 10 % (24-48) Monocytes % 4 % (0-10) Platelet Estimate Adequate (ADEQUATE) Prothrombin Time 13.1 SEC (11.7-14.0) Prothromb Time International Ratio 1.0 (0.8-1.1) Sodium Level 135 mmol/L (136-145) 136 mmol/L (136-145) Potassium Level 6.9 mmol/L (3.5-5.1) 4.7 mmol/L (3.5-5.1) Chloride Level 90 mmol/L (98-107) 97 mmol/L (98-107) Carbon Dioxide Level 34 mmol/L (21-32) 34 mmol/L (21-32) Anion Gap 11 (6-14) 5 (6-14) Blood Urea Nitrogen 56 mg/dL (7-20) 27 mg/dL (7-20) Creatinine 9.4 mg/dL (0.6-1.0) 5.9 mg/dL (0.6-1.0) Estimated GFR (Cockcroft-Gault) 5.0 8.6 BUN/Creatinine Ratio 6 (6-20) 5 (6-20) Glucose Level 142 mg/dL (70-99) 146 mg/dL (70-99) Calcium Level 10.4 mg/dL (8.5-10.1) 9.4 mg/dL (8.5-10.1) Total Bilirubin 0.4 mg/dL (0.2-1.0) 0.5 mg/dL (0.2-1.0) Aspartate Amino Transf (AST/SGOT) 15 U/L (15-37) 15 U/L (15-37) Alanine Aminotransferase (ALT/SGPT) 15 U/L (14-59) 12 U/L (14-59) Alkaline Phosphatase 140 U/L (46-116) 120 U/L (46-116) Creatine Kinase 29 U/L (26-192) Total Protein 8.6 g/dL (6.4-8.2) 7.6 g/dL (6.4-8.2) Albumin 3.8 g/dL (3.4-5.0) 3.2 g/dL (3.4-5.0) Albumin/Globulin Ratio 0.8 (1.0-1.7) 0.7 (1.0-1.7) Lipase 162 U/L (73-393) Glucose (Fingerstick) 191 mg/dL (70-99) 140 mg/dL (70-99) Laboratory Tests Test 02/25/19 20:19 02/26/19 04:20 02/26/19 07:28 Glucose (Fingerstick) 191 mg/dL (70-99) 140 mg/dL (70-99) White Blood Count 6.3 x10^3/uL (4.0-11.0) Red Blood Count 3.68 x10^6/uL (3.50-5.40) Hemoglobin 11.6 g/dL (12.0-15.5) Hematocrit 34.9 % (36.0-47.0) Mean Corpuscular Volume 95 fL (79-100) Mean Corpuscular Hemoglobin 32 pg (25-35) Mean Corpuscular Hemoglobin Concent 33 g/dL (31-37) Red Cell Distribution Width 20.4 % (11.5-14.5) Platelet Count 217 x10^3/uL (140-400) Neutrophils (%) (Auto) 77 % (31-73) Lymphocytes (%) (Auto) 12 % (24-48) Monocytes (%) (Auto) 8 % (0-9) Eosinophils (%) (Auto) 3 % (0-3) Basophils (%) (Auto) 1 % (0-3) Neutrophils # (Auto) 4.9 x10^3/uL (1.8-7.7) Lymphocytes # (Auto) 0.8 x10^3/uL (1.0-4.8) Monocytes # (Auto) 0.5 x10^3/uL (0.0-1.1) Eosinophils # (Auto) 0.2 x10^3/uL (0.0-0.7) Basophils # (Auto) 0.0 x10^3/uL (0.0-0.2) Sodium Level 136 mmol/L (136-145) Potassium Level 4.7 mmol/L (3.5-5.1) Chloride Level 97 mmol/L (98-107) Carbon Dioxide Level 34 mmol/L (21-32) Anion Gap 5 (6-14) Blood Urea Nitrogen 27 mg/dL (7-20) Creatinine 5.9 mg/dL (0.6-1.0) Estimated GFR (Cockcroft-Gault) 8.6 BUN/Creatinine Ratio 5 (6-20) Glucose Level 146 mg/dL (70-99) Calcium Level 9.4 mg/dL (8.5-10.1) Total Bilirubin 0.5 mg/dL (0.2-1.0) Aspartate Amino Transf (AST/SGOT) 15 U/L (15-37) Alanine Aminotransferase (ALT/SGPT) 12 U/L (14-59) Alkaline Phosphatase 120 U/L (46-116) Total Protein 7.6 g/dL (6.4-8.2) Albumin 3.2 g/dL (3.4-5.0) Albumin/Globulin Ratio 0.7 (1.0-1.7) Leukocytosis better. Vitals/I & O Vital Sign - Last 24 Hours 02/25/19 02/25/19 02/25/19 02/25/19 11:14 11:15 11:45 12:07 Pulse 78 78 78 Resp 15 15 24 20 B/P (MAP) 228/98 (141) 201/85 (123) 186/86 (119) Pulse Ox 98 99 98 100 O2 Delivery Room Air Room Air Room Air Room Air 02/25/19 02/25/19 02/25/19 02/25/19 12:11 12:15 12:45 12:53 Pulse 80 84 86 Resp 20 15 16 B/P (MAP) 177/82 (113) 149/74 (99) 147/66 (93) Pulse Ox 95 99 92 94 O2 Delivery Room Air Room Air Room Air Room Air 02/25/19 02/25/19 02/25/19 02/25/19 14:06 14:36 15:00 18:07 Temp 98.3 98.3 Pulse 87 Resp 16 16 17 B/P (MAP) 158/72 (100) Pulse Ox 95 100 O2 Delivery Room Air Room Air Room Air 02/25/19 02/25/19 02/25/19 02/25/19 19:00 19:48 20:00 22:41 Temp 99.4 99.4 Pulse 93 93 Resp 17 B/P (MAP) 158/73 (101) 158/73 Pulse Ox 99 O2 Delivery Room Air Room Air Room Air 02/25/19 02/26/19 02/26/19 02/26/19 23:00 00:50 02:52 07:30 Temp 98.9 98.6 97.7 98.9 98.6 97.7 Pulse 86 80 87 Resp 17 18 18 B/P (MAP) 133/64 (87) 139/63 (88) 136/60 (85) Pulse Ox 94 95 97 O2 Delivery Room Air Room Air Room Air Room Air 02/26/19 02/26/19 02/26/19 02/26/19 08:00 08:48 08:48 08:49 Pulse 87 87 87 B/P (MAP) 136/60 136/60 136/60 O2 Delivery Room Air 02/26/19 10:06 Pulse Ox 97 O2 Delivery Room Air Intake and Output 02/25/19 02/25/19 02/26/19 15:00 23:00 07:00 Intake Total 400 ml 0 ml Balance 400 ml 0 ml Problem List Problems Medical Problems: (1) Acute diverticulitis Status: Acute (2) End stage renal failure on dialysis Status: Acute (3) Hypercalcemia Status: Acute (4) Hyperkalemia Status: Acute (5) Hypochloremia Status: Acute Assessment Diverticulitis, pain persists and tenderness. Plan of Care Note Continue antibiotics. No feeding yet. Stay at ice chips. Observe. JOHN CABA MD Feb 26, 2019 11:02
--- NOTE | 2019-02-26 11:09 | PDOC ---
SUBJECTIVE ROS Asked to see for ESRD on hemodialysis Thursday Patient denies any new complaints other than ongoing left lower quadrant abdominal pain CVS: no Orthopnea, no CP RESP: no SOB, no JOHNSON GI: no Nausea, no Vomiting : no Dysuria, no Urgency OBJECTIVE Vital Signs Vital Signs Date Time Temp Pulse Resp B/P (MAP) Pulse Ox O2 Delivery O2 Flow Rate FiO2 02/26/19 10:06 97 Room Air 02/26/19 08:49 87 136/60 02/26/19 07:30 97.7 18 97.7 I & 0 Intake and Output 02/26/19 07:00 Intake Total 400 ml Balance 400 ml Intake Oral 400 ml PHYSICAL EXAM Physical Exam GEN: Awake, Oriented x 3, In min distress from abdominal pain mostly on palpation EYES: Vision Unchanged, Conjunctiva Normal EN: No EN Drainage, Mucous Membranes moist NECK: None JVD, normal JVP, Supple, palpable Thyromegaly CVS: S1S2, possible soft Murmur, No Gallop, No Rub, no Edema RESP: no Rales, no Rhonchi,no Acc. Muscle Use GI: BS + ve, NO Bruit, + Tender LLQ , Non Distended : no CVA tenderness, no Suprapubic Tenderness DIAGNOSIS/ASSESSMENT Assessment & Plan ESRD: Current fluid and E-lyte status does not necessitate emergent need fo r dialysis. Will re-evaluate for dialysis in the am and continue on MWF schedule. ANEMIA; Aranesp not ordered for hemoglobin greater than 11, Transfuse with next HD as needed HTN: Current BP meds as reviewed. See orders for changes. Abdominal pain with possible colitis: Consider general surgery evaluation. Defer further management to Dr. Morales BONE & MINERAL: Follow phosphorus levels and alter binder regimen as needed Critical hyperkalemia presentation: Now appears to resolved after yesterday's d ialysis Discussed Plan of Care with family () at bedside COMMENT/RELEVANT DATA Meds Current Medications Medications (Trade) Dose Ordered Sig/Aruna Start Time Stop Time Status Last Admin Dose Admin Albuterol Sulfate (Ventolin Neb Soln) 10 mg 1X ONCE 02/25/19 11:45 02/25/19 11:47 DC 02/25/19 12:10 10 MG Amlodipine Besylate (Norvasc) 5 mg BID 02/25/19 21:00 02/26/19 08:49 5 MG Calcitriol (Rocaltrol) 0.25 mcg DAILY 02/26/19 09:00 Calcium Acetate (Phoslo) 1,334 mg TIDWMEALS 02/25/19 17:00 Carvedilol (Coreg) 25 mg BIDWMEALS 02/25/19 17:00 02/26/19 08:48 25 MG Ciprofloxacin/ Dextrose 200 ml @ 200 mls/hr Q24H 02/25/19 21:00 02/25/19 22:41 200 MLS/HR Dextrose (Dextrose 50%-Water Syringe) 25 gm 1X ONCE 02/25/19 11:45 02/25/19 11:47 DC 02/25/19 12:06 25 GM Fentanyl Citrate (Fentanyl 2ml Vial) 50 mcg PRN Q4HRS PRN 02/25/19 14:00 02/26/19 10:06 50 MCG Heparin Sodium (Porcine) (Heparin Sodium) 5,000 unit Q8HRS 02/25/19 22:00 02/26/19 06:17 5,000 UNIT Insulin Glargine (Lantus) 10 units DAILYWSUP 02/25/19 17:00 Insulin Human Regular (HumuLIN R VIAL) 10 unit 1X ONCE 02/25/19 11:45 02/25/19 11:47 DC 02/25/19 12:08 10 UNIT Losartan Potassium (Cozaar) 100 mg DAILY 02/26/19 09:00 02/26/19 08:48 100 MG Metoclopramide HCl (Reglan) 5 mg TIDAC 02/25/19 16:30 02/26/19 08:48 5 MG Metronidazole 100 ml @ 100 mls/hr Q8HRS 02/25/19 22:00 02/26/19 06:01 100 MLS/HR Non-Formulary Medication (Epoetin Shan (Procrit)) 16,000 unit WEEKLY 03/04/19 09:00 UNV Polyethylene Glycol (miraLAX PACKET) 17 gm DAILY 02/26/19 09:00 Sennosides (Senna) 8.6 mg DAILYWSUP 02/25/19 17:00 Sodium Polystyrene Sulfonate (Kayexalate) 15 gm 1X ONCE 02/25/19 11:45 02/25/19 11:47 DC 02/25/19 12:06 15 GM Vitamin B Complex/ Vitamin C (Elise-Monica) 1 tab DAILY 02/26/19 09:00 Lab Laboratory Tests Test 02/25/19 20:19 02/26/19 04:20 02/26/19 07:28 Glucose (Fingerstick) 191 mg/dL (70-99) 140 mg/dL (70-99) White Blood Count 6.3 x10^3/uL (4.0-11.0) Red Blood Count 3.68 x10^6/uL (3.50-5.40) Hemoglobin 11.6 g/dL (12.0-15.5) Hematocrit 34.9 % (36.0-47.0) Mean Corpuscular Volume 95 fL (79-100) Mean Corpuscular Hemoglobin 32 pg (25-35) Mean Corpuscular Hemoglobin Concent 33 g/dL (31-37) Red Cell Distribution Width 20.4 % (11.5-14.5) Platelet Count 217 x10^3/uL (140-400) Neutrophils (%) (Auto) 77 % (31-73) Lymphocytes (%) (Auto) 12 % (24-48) Monocytes (%) (Auto) 8 % (0-9) Eosinophils (%) (Auto) 3 % (0-3) Basophils (%) (Auto) 1 % (0-3) Neutrophils # (Auto) 4.9 x10^3/uL (1.8-7.7) Lymphocytes # (Auto) 0.8 x10^3/uL (1.0-4.8) Monocytes # (Auto) 0.5 x10^3/uL (0.0-1.1) Eosinophils # (Auto) 0.2 x10^3/uL (0.0-0.7) Basophils # (Auto) 0.0 x10^3/uL (0.0-0.2) Sodium Level 136 mmol/L (136-145) Potassium Level 4.7 mmol/L (3.5-5.1) Chloride Level 97 mmol/L (98-107) Carbon Dioxide Level 34 mmol/L (21-32) Anion Gap 5 (6-14) Blood Urea Nitrogen 27 mg/dL (7-20) Creatinine 5.9 mg/dL (0.6-1.0) Estimated GFR (Cockcroft-Gault) 8.6 BUN/Creatinine Ratio 5 (6-20) Glucose Level 146 mg/dL (70-99) Calcium Level 9.4 mg/dL (8.5-10.1) Total Bilirubin 0.5 mg/dL (0.2-1.0) Aspartate Amino Transf (AST/SGOT) 15 U/L (15-37) Alanine Aminotransferase (ALT/SGPT) 12 U/L (14-59) Alkaline Phosphatase 120 U/L (46-116) Total Protein 7.6 g/dL (6.4-8.2) Albumin 3.2 g/dL (3.4-5.0) Albumin/Globulin Ratio 0.7 (1.0-1.7) Results All relevant outside records, renal labs, imaging studies, telemetry/EKG's were reviewed. Other 1. There is at least moderate wall thickening of the distal descending colon and proximal sigmoid colon with associated inflammatory change and diverticula, evidence of diverticulitis. Colon screening is advised after resolution of acute symptoms if this has not been performed. 2. There is coronary calcification, also atherosclerotic calcification of abdominal aorta and branches. 3. Both kidneys are small. JEFF CRAMER MD Feb 26, 2019 11:09
[2019-02-26 11:10] VITALS: BP 135/59
[2019-02-26 15:14] VITALS: BP 135/76
[2019-02-26] MEDS: SENNOSIDES 8.6 MG TABLET PO SCH (17:00)
[2019-02-26] MEDS: INSULIN GLARGINE 300 UNITS/3 ML INSULN.PEN. SQ SCH (18:00)
[2019-02-26 19:49] VITALS: BP 145/79
[2019-02-26] MEDS: CIPROFLOXACIN 400MG PREMIX 200 ML IV SCH (22:39)
[2019-02-26 23:31] VITALS: BP 145/56
[2019-02-27 03:33] VITALS: BP 129/81
[2019-02-27] MEDS: HEPARIN for SUB-Q USE 5,000 UNIT/ML VIAL. SQ SCH ×3 (05:46→21:19)
[2019-02-27 07:00] VITALS: BP_SYST 120; BP_SYST 153; BP_DIAS 48; BP_DIAS 64
--- NOTE | 2019-02-27 08:13 | PDOC ---
PROGRESS NOTES Chief Complaint Chief Complaint Hyperkalemia Hypercalcemia Accelerated hypertension Acute diastolic CHF ESRD Diverticulitis - with Moderate wall thickening of the distal descending colon and proximal sigmoid colon with associated inflammatory change and diverticula DM2 - basal bolus plus insulin History of Present Illness History of Present Illness Ms Garcia is a 68 y/o F w/ PMHx HTN, COPD, HLD, DM, ESRD on HD, OA, anxiety who came into ER for constant severe LLQ pain x 2 days w/ associated lightheadedness, fever, and sweats. Labs notable for WBC 11.2, K+ 6.9, BUN 56, Cr 9.4. CT A/P noted moderate wall thickening of the distal descending and proximal sigmoid colon w/ associated inflammation and diverticula. She was given IV Cipro and Metronidazole x 1 in ER and went for urgent dialysis for hyperkalemia. Seen by GI and nephrology in consultation. Feeling a bit improved. She very much wants to eat, abdominal pain significantly improved. I have advanced her diet. Denies SOB or CP. Vitals Vitals Vital Signs Date Time Temp Pulse Resp B/P (MAP) Pulse Ox O2 Delivery O2 Flow Rate FiO2 02/27/19 03:33 98.0 61 18 129/81 (97) 95 Room Air 98.0 Physical Exam General: Alert, Oriented X3, Cooperative Lungs: Crackles, Other Abdomen: Soft Extremities: No cyanosis Labs LABS Laboratory Tests Test 02/26/19 11:34 02/26/19 16:49 02/26/19 19:11 02/27/19 07:48 Glucose (Fingerstick) 175 mg/dL (70-99) 125 mg/dL (70-99) 111 mg/dL (70-99) 90 mg/dL (70-99) Assessment and Plan Assessmemt and Plan Problems Medical Problems: (1) Acute diverticulitis Status: Acute (2) End stage renal failure on dialysis Status: Acute (3) Hypercalcemia Status: Acute (4) Hyperkalemia Status: Acute (5) Hypochloremia Status: Acute Comment Review of Relevant I have reviewed the following items (where applicable) has been applied. Labs Laboratory Tests Test 02/25/19 10:50 02/25/19 20:19 02/26/19 04:20 02/26/19 07:28 White Blood Count 11.2 x10^3/uL (4.0-11.0) 6.3 x10^3/uL (4.0-11.0) Red Blood Count 4.13 x10^6/uL (3.50-5.40) 3.68 x10^6/uL (3.50-5.40) Hemoglobin 13.0 g/dL (12.0-15.5) 11.6 g/dL (12.0-15.5) Hematocrit 39.0 % (36.0-47.0) 34.9 % (36.0-47.0) Mean Corpuscular Volume 94 fL (79-100) 95 fL (79-100) Mean Corpuscular Hemoglobin 31 pg (25-35) 32 pg (25-35) Mean Corpuscular Hemoglobin Concent 33 g/dL (31-37) 33 g/dL (31-37) Red Cell Distribution Width 21.1 % (11.5-14.5) 20.4 % (11.5-14.5) Platelet Count 233 x10^3/uL (140-400) 217 x10^3/uL (140-400) Neutrophils (%) (Auto) 85 % (31-73) 77 % (31-73) Lymphocytes (%) (Auto) 8 % (24-48) 12 % (24-48) Monocytes (%) (Auto) 4 % (0-9) 8 % (0-9) Eosinophils (%) (Auto) 2 % (0-3) 3 % (0-3) Basophils (%) (Auto) 1 % (0-3) 1 % (0-3) Neutrophils # (Auto) 9.5 x10^3/uL (1.8-7.7) 4.9 x10^3/uL (1.8-7.7) Lymphocytes # (Auto) 0.9 x10^3/uL (1.0-4.8) 0.8 x10^3/uL (1.0-4.8) Monocytes # (Auto) 0.5 x10^3/uL (0.0-1.1) 0.5 x10^3/uL (0.0-1.1) Eosinophils # (Auto) 0.2 x10^3/uL (0.0-0.7) 0.2 x10^3/uL (0.0-0.7) Basophils # (Auto) 0.1 x10^3/uL (0.0-0.2) 0.0 x10^3/uL (0.0-0.2) Segmented Neutrophils % 84 % (35-66) Band Neutrophils % 2 % (0-9) Lymphocytes % 10 % (24-48) Monocytes % 4 % (0-10) Platelet Estimate Adequate (ADEQUATE) Prothrombin Time 13.1 SEC (11.7-14.0) Prothromb Time International Ratio 1.0 (0.8-1.1) Sodium Level 135 mmol/L (136-145) 136 mmol/L (136-145) Potassium Level 6.9 mmol/L (3.5-5.1) 4.7 mmol/L (3.5-5.1) Chloride Level 90 mmol/L (98-107) 97 mmol/L (98-107) Carbon Dioxide Level 34 mmol/L (21-32) 34 mmol/L (21-32) Anion Gap 11 (6-14) 5 (6-14) Blood Urea Nitrogen 56 mg/dL (7-20) 27 mg/dL (7-20) Creatinine 9.4 mg/dL (0.6-1.0) 5.9 mg/dL (0.6-1.0) Estimated GFR (Cockcroft-Gault) 5.0 8.6 BUN/Creatinine Ratio 6 (6-20) 5 (6-20) Glucose Level 142 mg/dL (70-99) 146 mg/dL (70-99) Calcium Level 10.4 mg/dL (8.5-10.1) 9.4 mg/dL (8.5-10.1) Total Bilirubin 0.4 mg/dL (0.2-1.0) 0.5 mg/dL (0.2-1.0) Aspartate Amino Transf (AST/SGOT) 15 U/L (15-37) 15 U/L (15-37) Alanine Aminotransferase (ALT/SGPT) 15 U/L (14-59) 12 U/L (14-59) Alkaline Phosphatase 140 U/L (46-116) 120 U/L (46-116) Creatine Kinase 29 U/L (26-192) Total Protein 8.6 g/dL (6.4-8.2) 7.6 g/dL (6.4-8.2) Albumin 3.8 g/dL (3.4-5.0) 3.2 g/dL (3.4-5.0) Albumin/Globulin Ratio 0.8 (1.0-1.7) 0.7 (1.0-1.7) Lipase 162 U/L (73-393) Glucose (Fingerstick) 191 mg/dL (70-99) 140 mg/dL (70-99) Test 02/26/19 11:34 02/26/19 16:49 02/26/19 19:11 02/27/19 07:48 Glucose (Fingerstick) 175 mg/dL (70-99) 125 mg/dL (70-99) 111 mg/dL (70-99) 90 mg/dL (70-99) Laboratory Tests Test 02/26/19 11:34 02/26/19 16:49 02/26/19 19:11 02/27/19 07:48 Glucose (Fingerstick) 175 mg/dL (70-99) 125 mg/dL (70-99) 111 mg/dL (70-99) 90 mg/dL (70-99) Medications Current Medications Fentanyl Citrate (Fentanyl 2ml Vial) 50 mcg 1X ONCE IV Last administered on 02/25/19 09:52; Start 02/25/19 at 09:30; Stop 02/25/19 at 09:31; Status DC Metronidazole 100 ml @ 100 mls/hr 1X ONCE IV Last administered on 02/25/19at 12:06; Start 02/25/19 at 11:45; Stop 02/25/19 at 12:44; Status DC Ciprofloxacin/ Dextrose 200 ml @ 200 mls/hr 1X ONCE IV Last administered on 02/25/19at 13:56; Start 02/25/19 at 11:45; Stop 02/25/19 at 12:44; Status DC Fentanyl Citrate (Fentanyl 2ml Vial) 50 mcg 1X ONCE IV Last administered on 02/25/19at 12:07; Start 02/25/19 at 11:45; Stop 02/25/19 at 11:46; Status DC Dextrose (Dextrose 50%-Water Syringe) 25 gm 1X ONCE IV Last administered on 02/25/19at 12:06; Start 02/25/19 at 11:45; Stop 02/25/19 at 11:47; Status DC Insulin Human Regular (HumuLIN R VIAL) 10 unit 1X ONCE IV Last administered on 02/25/19at 12:08; Start 02/25/19 at 11:45; Stop 02/25/19 at 11:47; Status DC Albuterol Sulfate (Ventolin Neb Soln) 10 mg 1X ONCE CONT NEB Last administered on 02/25/19at 12:10; Start 02/25/19 at 11:45; Stop 02/25/19 at 11:47; Status DC Sodium Polystyrene Sulfonate (Kayexalate) 15 gm 1X ONCE PO Last administered on 02/25/19 12:06; Start 02/25/19 at 11:45; Stop 02/25/19 at 11:47; Status DC Metronidazole 100 ml @ 100 mls/hr Q8HRS IV Last administered on 02/27/19at 05:40; Start 02/25/19 at 22:00 Ciprofloxacin/ Dextrose 200 ml @ 200 mls/hr Q24H IV Last administered on 02/26/19at 22:39; Start 02/25/19 at 21:00 Fentanyl Citrate (Fentanyl 2ml Vial) 50 mcg PRN Q4HRS PRN IV PAIN Last administered on 02/26/19at 22:39; Start 02/25/19 at 14:00 Amlodipine Besylate (Norvasc) 5 mg BID PO Last administered on 02/26/19at 22:42; Start 02/25/19 at 21:00 Calcium Acetate (Phoslo) 1,334 mg TIDWMEALS PO ; Start 02/25/19 at 17:00 Vitamin B Complex/ Vitamin C (Elise-Monica) 1 tab DAILY PO ; Start 02/26/19 at 09:00 Metoclopramide HCl (Reglan) 5 mg TIDAC PO Last administered on 02/26/19at 08:48; Start 02/25/19 at 16:30 Calcitriol (Rocaltrol) 0.25 mcg DAILY PO ; Start 02/26/19 at 09:00 Carvedilol (Coreg) 25 mg BIDWMEALS PO Last administered on 02/26/19at 17:50; Start 02/25/19 at 17:00 Non-Formulary Medication (Epoetin Shan (Procrit)) 16,000 unit WEEKLY IJ ; Start 03/04/19 at 09:00; Status UNV Insulin Glargine (Lantus) 10 units DAILYWSUP SQ Last administered on 02/26/19at 18:00; Start 02/25/19 at 17:00 Losartan Potassium (Cozaar) 100 mg DAILY PO Last administered on 02/26/19at 08:48; Start 02/26/19 at 09:00 Polyethylene Glycol (miraLAX PACKET) 17 gm DAILY PO ; Start 02/26/19 at 09:00 Sennosides (Senna) 8.6 mg DAILYWSUP PO ; Start 02/25/19 at 17:00 Heparin Sodium (Porcine) (Heparin Sodium) 5,000 unit Q8HRS SQ Last administered on 02/27/19at 05:46; Start 02/25/19 at 22:00 Active Scripts Active Reported Miralax (Polyethylene Glycol 3350) 17 Gm Powd.pack 1 Packet PO DAILY Sennosides 8.6 Mg Tablet 8.6 Mg PO DAILYWSUP Metoclopramide Hcl 5 Mg Tablet 5 Mg PO TID Losartan Potassium 100 Mg Tablet 1 Tab PO DAILY Levemir (Insulin Detemir) 100 Unit/1 Ml Vial 10 Unit SQ DAILYWSUP Elise-Monica Tablet (Folic Acid/Vitamin B Comp W-C) 0.8 Mg Tablet 0.8 Mg PO DAILY Procrit (Epoetin Shan) 20,000 Unit/2 Ml Vial 16,000 Unit IJ WEEKLY Carvedilol 25 Mg Tablet 1 Tab PO BID Phoslo (Calcium Acetate) 667 Mg Capsule 2 Cap PO TIDWMEALS Calcitriol 0.25 Mcg Capsule 1 Cap PO DAILY Amlodipine Besylate 5 Mg Tablet 1 Tab PO BID Vitals/I & O Vital Sign - Last 24 Hours 02/26/19 02/26/19 02/26/19 02/26/19 08:48 08:48 08:49 10:06 Pulse 87 87 87 B/P (MAP) 136/60 136/60 136/60 Pulse Ox 97 O2 Delivery Room Air 02/26/19 02/26/19 02/26/19 02/26/19 11:10 15:14 17:50 17:50 Temp 97.9 98.6 97.9 98.6 Pulse 103 95 95 Resp 17 18 B/P (MAP) 135/59 (84) 135/76 (95) 135/76 Pulse Ox 97 98 98 O2 Delivery Room Air Room Air Room Air 02/26/19 02/26/19 02/26/19 02/26/19 19:49 20:00 22:39 22:42 Temp 98.6 98.6 Pulse 66 66 Resp 18 18 B/P (MAP) 145/79 (101) 145/79 Pulse Ox 96 96 O2 Delivery Room Air Room Air Room Air 02/26/19 02/26/19 02/27/19 23:31 23:50 03:33 Temp 98.3 98.0 98.3 98.0 Pulse 61 61 Resp 18 16 18 B/P (MAP) 145/56 (85) 129/81 (97) Pulse Ox 97 97 95 O2 Delivery Room Air Room Air Room Air Intake and Output 02/26/19 02/26/19 02/27/19 14:59 22:59 06:59 Intake Total 0 ml 0 ml 0 ml Balance 0 ml 0 ml 0 ml IRIS SANTIAGO MD Feb 27, 2019 08:13
--- NOTE | 2019-02-27 08:14 | PDOC ---
SUBJECTIVE ROS Follow-up for ESRD on hemodialysis Thursday Patient tells me her abdominal pain has resolved. She tells me if I don't let her eat, she will sign out AMA. She does not think that her abdominal pain resolved because of a bowel movement. CVS: no Orthopnea, no CP RESP: no SOB, no JOHNSON GI: no Nausea, no Vomiting, resolved abdominal pain : no Dysuria, no Urgency OBJECTIVE Vital Signs Vital Signs Date Time Temp Pulse Resp B/P (MAP) Pulse Ox O2 Delivery O2 Flow Rate FiO2 02/27/19 03:33 98.0 61 18 129/81 (97) 95 Room Air 98.0 I & 0 Intake and Output 02/27/19 07:00 Intake Total 0 ml Balance 0 ml Intake Oral 0 ml # Voids 1 PHYSICAL EXAM Physical Exam GEN: Awake, Oriented x 3, In no current distress EYES: Vision Unchanged, Conjunctiva Normal EN: No EN Drainage, Mucous Membranes moist NECK: None JVD, normal JVP, Supple, palpable Thyromegaly CVS: S1S2, possible soft Murmur, No Gallop, No Rub, no Edema RESP: no Rales, no Rhonchi,no Acc. Muscle Use GI: BS + ve, NO Bruit, non-tender, Non Distended : no CVA tenderness, no Suprapubic Tenderness DIAGNOSIS/ASSESSMENT Assessment & Plan ESRD: Current fluid and E-lyte status does not necessitate emergent need for dialysis. Will re-evaluate for dialysis in the am and continue on [facility] edule. ANEMIA; Aranesp not ordered for hemoglobin greater than 11, Transfuse with next HD as needed HTN: Current BP meds as reviewed. See orders for changes. Abdominal pain with possible colitis: This appears to have improved significantly. Defer further management to GI BONE & MINERAL: Follow phosphorus levels and alter binder regimen as needed Discussed Plan of Care with family () at bedside COMMENT/RELEVANT DATA Meds Current Medications Medications (Trade) Dose Ordered Sig/Aruna Start Time Stop Time Status Last Admin Dose Admin Albuterol Sulfate (Ventolin Neb Soln) 10 mg 1X ONCE 02/25/19 11:45 02/25/19 11:47 DC 02/25/19 12:10 10 MG Amlodipine Besylate (Norvasc) 5 mg BID 02/25/19 21:00 02/26/19 22:42 5 MG Calcitriol (Rocaltrol) 0.25 mcg DAILY 02/26/19 09:00 Calcium Acetate (Phoslo) 1,334 mg TIDWMEALS 02/25/19 17:00 Carvedilol (Coreg) 25 mg BIDWMEALS 02/25/19 17:00 02/26/19 17:50 25 MG Ciprofloxacin/ Dextrose 200 ml @ 200 mls/hr Q24H 02/25/19 21:00 02/26/19 22:39 200 MLS/HR Dextrose (Dextrose 50%-Water Syringe) 25 gm 1X ONCE 02/25/19 11:45 02/25/19 11:47 DC 02/25/19 12:06 25 GM Fentanyl Citrate (Fentanyl 2ml Vial) 50 mcg PRN Q4HRS PRN 02/25/19 14:00 02/26/19 22:39 50 MCG Heparin Sodium (Porcine) (Heparin Sodium) 5,000 unit Q8HRS 02/25/19 22:00 02/27/19 05:46 5,000 UNIT Insulin Glargine (Lantus) 10 units DAILYWSUP 02/25/19 17:00 02/26/19 18:00 10 UNITS Insulin Human Regular (HumuLIN R VIAL) 10 unit 1X ONCE 02/25/19 11:45 02/25/19 11:47 DC 02/25/19 12:08 10 UNIT Losartan Potassium (Cozaar) 100 mg DAILY 02/26/19 09:00 02/26/19 08:48 100 MG Metoclopramide HCl (Reglan) 5 mg TIDAC 02/25/19 16:30 02/26/19 08:48 5 MG Metronidazole 100 ml @ 100 mls/hr Q8HRS 02/25/19 22:00 02/27/19 05:40 100 MLS/HR Non-Formulary Medication (Epoetin Shan (Procrit)) 16,000 unit WEEKLY 03/04/19 09:00 UNV Polyethylene Glycol (miraLAX PACKET) 17 gm DAILY 02/26/19 09:00 Sennosides (Senna) 8.6 mg DAILYWSUP 02/25/19 17:00 Sodium Polystyrene Sulfonate (Kayexalate) 15 gm 1X ONCE 02/25/19 11:45 02/25/19 11:47 DC 02/25/19 12:06 15 GM Vitamin B Complex/ Vitamin C (Elise-Monica) 1 tab DAILY 02/26/19 09:00 Lab Laboratory Tests Test 02/26/19 11:34 02/26/19 16:49 02/26/19 19:11 02/27/19 07:48 Glucose (Fingerstick) 175 mg/dL (70-99) 125 mg/dL (70-99) 111 mg/dL (70-99) 90 mg/dL (70-99) Results All relevant outside records, renal labs, imaging studies, telemetry/EKG's were reviewed. JEFF CRAMER MD Feb 27, 2019 08:14
[2019-02-27] MEDS ORDERED: MAGNESIUM SULFATE 2GM 50 ML IV PRN (08:15)
[2019-02-27] MEDS: CALCIUM ACETATE 667 MG CAPSULE PO SCH ×3 (08:49→17:15)
[2019-02-27] MEDS: CALCITRIOL 0.25 MCG CAPSULE. PO SCH (08:49)
[2019-02-27] MEDS: METOCLOPRAMIDE 5 MG TABLET. PO SCH ×3 (08:50→17:15)
[2019-02-27] MEDS: CARVEDILOL 12.5 MG TABLET. PO SCH ×2 (08:50→17:15)
[2019-02-27] MEDS: LOSARTAN POTASSIUM 50 MG TABLET. PO SCH (08:50)
[2019-02-27] MEDS: FOLIC/VIT B COMP W-C (RENAL) TABLET. PO SCH (08:51)
[2019-02-27] MEDS: amLODIPine BESYLATE 5 MG TABLET PO SCH ×2 (08:51→21:17)
[2019-02-27] MEDS: POLYETHYLENE GLYCOL 3350 17 GM PACKET. PO SCH (08:51)
--- NOTE | 2019-02-27 10:41 | NUR ---
Per Dr Walter to discontinue telemetry on pt. There is no longer a need for her to have it. Dayron Roper RN
[2019-02-27 11:00] VITALS: BP 119/56
--- NOTE | 2019-02-27 12:40 | PDOC ---
G I PROGRESS NOTE Subjective Denies pain. Wants more food. Physical Exam Lungs clear. RRR Abdomen soft, no longer tender in LLQ. Review of Relevant I have reviewed the following items (where applicable) has been applied. Labs Laboratory Tests Test 02/25/19 20:19 02/26/19 04:20 02/26/19 07:28 02/26/19 11:34 Glucose (Fingerstick) 191 mg/dL (70-99) 140 mg/dL (70-99) 175 mg/dL (70-99) White Blood Count 6.3 x10^3/uL (4.0-11.0) Red Blood Count 3.68 x10^6/uL (3.50-5.40) Hemoglobin 11.6 g/dL (12.0-15.5) Hematocrit 34.9 % (36.0-47.0) Mean Corpuscular Volume 95 fL (79-100) Mean Corpuscular Hemoglobin 32 pg (25-35) Mean Corpuscular Hemoglobin Concent 33 g/dL (31-37) Red Cell Distribution Width 20.4 % (11.5-14.5) Platelet Count 217 x10^3/uL (140-400) Neutrophils (%) (Auto) 77 % (31-73) Lymphocytes (%) (Auto) 12 % (24-48) Monocytes (%) (Auto) 8 % (0-9) Eosinophils (%) (Auto) 3 % (0-3) Basophils (%) (Auto) 1 % (0-3) Neutrophils # (Auto) 4.9 x10^3/uL (1.8-7.7) Lymphocytes # (Auto) 0.8 x10^3/uL (1.0-4.8) Monocytes # (Auto) 0.5 x10^3/uL (0.0-1.1) Eosinophils # (Auto) 0.2 x10^3/uL (0.0-0.7) Basophils # (Auto) 0.0 x10^3/uL (0.0-0.2) Sodium Level 136 mmol/L (136-145) Potassium Level 4.7 mmol/L (3.5-5.1) Chloride Level 97 mmol/L (98-107) Carbon Dioxide Level 34 mmol/L (21-32) Anion Gap 5 (6-14) Blood Urea Nitrogen 27 mg/dL (7-20) Creatinine 5.9 mg/dL (0.6-1.0) Estimated GFR (Cockcroft-Gault) 8.6 BUN/Creatinine Ratio 5 (6-20) Glucose Level 146 mg/dL (70-99) Calcium Level 9.4 mg/dL (8.5-10.1) Total Bilirubin 0.5 mg/dL (0.2-1.0) Aspartate Amino Transf (AST/SGOT) 15 U/L (15-37) Alanine Aminotransferase (ALT/SGPT) 12 U/L (14-59) Alkaline Phosphatase 120 U/L (46-116) Total Protein 7.6 g/dL (6.4-8.2) Albumin 3.2 g/dL (3.4-5.0) Albumin/Globulin Ratio 0.7 (1.0-1.7) Test 02/26/19 16:49 02/26/19 19:11 02/27/19 07:48 02/27/19 11:42 Glucose (Fingerstick) 125 mg/dL (70-99) 111 mg/dL (70-99) 90 mg/dL (70-99) 252 mg/dL (70-99) Laboratory Tests Test 02/26/19 16:49 02/26/19 19:11 02/27/19 07:48 02/27/19 11:42 Glucose (Fingerstick) 125 mg/dL (70-99) 111 mg/dL (70-99) 90 mg/dL (70-99) 252 mg/dL (70-99) Vitals/I & O Vital Sign - Last 24 Hours 02/26/19 02/26/19 02/26/19 02/26/19 15:14 17:50 17:50 19:49 Temp 98.6 98.6 98.6 98.6 Pulse 95 95 66 Resp 18 18 B/P (MAP) 135/76 (95) 135/76 145/79 (101) Pulse Ox 98 98 96 O2 Delivery Room Air Room Air Room Air 02/26/19 02/26/19 02/26/19 02/26/19 20:00 22:39 22:42 23:31 Temp 98.3 98.3 Pulse 66 61 Resp 18 18 B/P (MAP) 145/79 145/56 (85) Pulse Ox 96 97 O2 Delivery Room Air Room Air Room Air 02/26/19 02/27/19 02/27/19 02/27/19 23:50 03:33 07:00 08:00 Temp 98.0 97.5 98.0 97.5 Pulse 61 64 Resp 16 18 19 B/P (MAP) 129/81 (97) 153/64 (93) Pulse Ox 97 95 97 O2 Delivery Room Air Room Air Room Air Room Air 02/27/19 02/27/19 02/27/19 02/27/19 08:50 08:50 08:51 11:00 Temp 98.0 98.0 Pulse 64 64 64 70 Resp 19 B/P (MAP) 153/64 153/64 153/64 119/56 (77) Pulse Ox 100 O2 Delivery Room Air Intake and Output 02/26/19 02/26/19 02/27/19 15:00 23:00 07:00 Intake Total 0 ml 0 ml 0 ml Balance 0 ml 0 ml 0 ml Problem List Problems Medical Problems: (1) Acute diverticulitis Status: Acute (2) End stage renal failure on dialysis Status: Acute (3) Hypercalcemia Status: Acute (4) Hyperkalemia Status: Acute (5) Hypochloremia Status: Acute Assessment Diverticulitis, clinically better. Plan of Care Note Agree with advance diet. PO antibiotics soon, then OK with us to dismiss. F/u with us 6-8 weeks. JOHN CABA MD Feb 27, 2019 12:40
[2019-02-27 15:00] VITALS: BP 106/63
[2019-02-27] MEDS: SENNOSIDES 8.6 MG TABLET PO SCH (17:00)
[2019-02-27] MEDS: INSULIN GLARGINE 300 UNITS/3 ML INSULN.PEN. SQ SCH (17:21)
[2019-02-27 19:05] VITALS: BP 177/72
[2019-02-27] MEDS: LACTOBACILLUS RHAMNOSUS GG 1 CAPSULE. PO SCH (21:20)
[2019-02-27] MEDS: CIPROFLOXACIN 400MG PREMIX 200 ML IV SCH (21:20)
[2019-02-27] MEDS ORDERED: traMADol 50 MG TABLET PO PRN (22:30)
[2019-02-27] MEDS ORDERED: ACETAMINOPHEN 325 MG TABLET. PO PRN (22:30)
[2019-02-27 23:17] VITALS: BP 178/86
--- NOTE | 2019-02-27 23:30 | NUR ---
TRANSFER NOTE Pt transferred to room 500 from 665 via bed, pt ambulatory to bed. Assessment completed, pt denies pain or any other needs. Call light given and explained to pt. Pt currently has antibiotic infusing into right forearm. Will monitor.
[2019-02-28 03:00] VITALS: BP 140/68
[2019-02-28] MEDS: HEPARIN for SUB-Q USE 5,000 UNIT/ML VIAL. SQ SCH ×2 (06:03→14:00)
[2019-02-28 07:00] VITALS: BP 171/75
[2019-02-28] MEDS: METOCLOPRAMIDE 5 MG TABLET. PO SCH ×2 (07:41→11:30)
[2019-02-28] MEDS ORDERED: IV NORMAL SALINE 1000ML BAG 1,000 ML IV PRN ×2 (08:35)
[2019-02-28] MEDS ORDERED: ALBUMIN HUMAN 25% 200 ML IV PRN (08:45)
[2019-02-28] MEDS ORDERED: diphenhydrAMINE 50 MG/ML VIAL IV PRN (08:45)
[2019-02-28] MEDS ORDERED: DIALYSIS PATIENT. MC PRN ×2 (08:45)
--- NOTE | 2019-02-28 08:51 | NUR ---
SW following for discharge planning. Chart reviewed. Pt is from home with spouse. Pt has OP HD chair time in the community on Thursday, Thursday, and Thursday's. No discharge needs noted at this time. SW will continue to follow pt pending dc needs.
[2019-02-28] MEDS: CALCITRIOL 0.25 MCG CAPSULE. PO SCH (08:54)
[2019-02-28] MEDS: FOLIC/VIT B COMP W-C (RENAL) TABLET. PO SCH (08:54)
[2019-02-28] MEDS: LACTOBACILLUS RHAMNOSUS GG 1 CAPSULE. PO SCH (08:55)
[2019-02-28] MEDS: LOSARTAN POTASSIUM 50 MG TABLET. PO SCH (08:55)
[2019-02-28] MEDS: CALCIUM ACETATE 667 MG CAPSULE PO SCH ×2 (08:55→12:00)
[2019-02-28] MEDS: CARVEDILOL 12.5 MG TABLET. PO SCH (08:56)
[2019-02-28 08:57] VITALS: BP 171/75
[2019-02-28] MEDS: amLODIPine BESYLATE 5 MG TABLET PO SCH (08:57)
[2019-02-28] MEDS: POLYETHYLENE GLYCOL 3350 17 GM PACKET. PO SCH (08:57)
--- NOTE | 2019-02-28 09:56 | PDOC ---
Subjective: Subjective: Tolerating diet, stooling, no abd pain. Not sure she wants to have another colonoscopy. Objective: Vital Signs: Vital Signs Date Time Temp Pulse Resp B/P (MAP) Pulse Ox O2 Delivery O2 Flow Rate FiO2 02/28/19 08:57 63 171/75 02/28/19 07:30 Room Air 02/28/19 07:00 97.8 18 97 97.8 Labs: Laboratory Tests Test 02/27/19 11:42 02/27/19 17:07 02/27/19 22:11 02/28/19 07:16 Glucose (Fingerstick) 252 mg/dL 242 mg/dL 154 mg/dL 95 mg/dL PE: GEN: NAD LUNGS: CTAB HEART: RRR ABD: S/ND/NT NEURO/PSYCH: A & O �3 A/P: Diverticulitis HTN, ESRD -- Improved. DC per primary on PO antibiotics. Recommend follow-up w/ GI in 4-6 weeks. CHANTEL MONGE Feb 28, 2019 09:56
--- NOTE | 2019-02-28 10:59 | PDOC ---
[facility] PROGRESS NOTE Chief Complaint Chief Complaint Hyperkalemia Hypercalcemia Accelerated hypertension Acute diastolic CHF ESRD Diverticulitis - with Moderate wall thickening of the distal descending colon and proximal sigmoid colon with associated inflammatory change and diverticula DM2 - basal bolus plus insulin History of Present Illness History of Present Illness 7�15�2019 Patient seen and examined she appears to be at her baseline She was to do dialysis and go home this afternoon Discussed with RN Ms Garcia is a 68 y/o F w/ PMHx HTN, COPD, HLD, DM, ESRD on HD, OA, anxiety who came into ER for constant severe LLQ pain x 2 days w/ associated lightheadedness, fever, and sweats. Labs notable for WBC 11.2, K+ 6.9, BUN 56, Cr 9.4. CT A/P noted moderate wall thickening of the distal descending and proximal sigmoid colon w/ associated inflammation and diverticula. She was given IV Cipro and Metronidazole x 1 in ER and went for urgent dialysis for hyperkalemia. Seen by GI and nephrology in consultation. Feeling a bit improved. She very much wants to eat, abdominal pain significantly improved. I have advanced her diet. Denies SOB or CP. Vitals/I&O Vitals/I&O: Vital Signs Date Time Temp Pulse Resp B/P (MAP) Pulse Ox O2 Delivery O2 Flow Rate FiO2 02/28/19 08:57 63 171/75 02/28/19 07:30 Room Air 02/28/19 07:00 97.8 18 97 97.8 I & O0 02/27/19 02/27/19 02/28/19 14:59 22:59 06:59 Intake Total 200 ml 500 ml Balance 200 ml 500 ml Physical Exam General: Alert, Oriented X3, Cooperative Lungs: Crackles, Other Abdomen: Soft Extremities: No cyanosis Labs Labs: Laboratory Tests Test 02/27/19 11:42 02/27/19 17:07 02/27/19 22:11 02/28/19 07:16 Glucose (Fingerstick) 252 mg/dL (70-99) 242 mg/dL (70-99) 154 mg/dL (70-99) 95 mg/dL (70-99) Test 02/28/19 10:20 Hemoglobin 10.4 g/dL (12.0-15.5) Assessment and Plan Assessmemt and Plan Problems Medical Problems: (1) Accelerated hypertension Status: Acute (2) Acute diastolic CHF (congestive heart failure) Status: Acute (3) Acute diverticulitis Status: Acute (4) Anemia Status: Acute (5) End stage renal failure on dialysis Status: Acute (6) Hypercalcemia Status: Acute (7) Hyperkalemia Status: Acute (8) Hypochloremia Status: Acute Hyperkalemia Hypercalcemia Accelerated hypertension Acute diastolic CHF ESRD Diverticulitis - with Moderate wall thickening of the distal descending colon and proximal sigmoid colon with associated inflammatory change and diverticula DM2 - basal bolus plus insulin Plan Probable discharge this afternoon after dialysis Continue other treatment for now Comment Review of Relevant I have reviewed the following items (where applicable) has been applied. Medications: Current Medications Medications (Trade) Dose Ordered Sig/Aruna Route PRN Reason Start Time Stop Time Status Last Admin Dose Admin Lactobacillus Rhamnosus (Culturelle) 1 cap BID PO 02/27/19 21:00 02/28/19 08:55 Acetaminophen (Tylenol) 650 mg PRN Q6HRS PRN PO HEADACHE 02/27/19 22:30 02/27/19 22:24 GENE LUCAS III DO Feb 28, 2019 10:59
[2019-02-28 11:00] LABS: CALCIUM 8.7 mg/dL (8.5-10.1); CREATININE 9.3 mg/dL (0.6-1.0); GFR 5.1; MAGNESIUM 2.5 mg/dL (1.8-2.4); PHOSPHORUS 5.3 mg/dL (2.6-4.7); POTASSIUM 4.7 mmol/L (3.5-5.1)
--- NOTE | 2019-02-28 11:30 | PDOC ---
SUBJECTIVE ROS No complaint on HD OBJECTIVE Vital Signs Vital Signs Date Time Temp Pulse Resp B/P (MAP) Pulse Ox O2 Delivery O2 Flow Rate FiO2 02/28/19 08:57 63 171/75 02/28/19 07:30 Room Air 02/28/19 07:00 97.8 18 97 97.8 I & 0 Intake and Output 02/28/19 06:59 Intake Total 700 ml Balance 700 ml Intake Oral 300 ml IV Total 400 ml # Voids 3 PHYSICAL EXAM Physical Exam General: Alert, Oriented X3, Cooperative HEENT: OM moist Lungs: CTA Bilat CV RRR Abdomen: Soft Extremities: No edema Neuro: Grossly Normal No Boyle DIAGNOSIS/ASSESSMENT Assessment & Plan ESRD. On HD MWF Seen on HD, tolerating well, continue as ordered, D overhead garage door hanger Hyperkalemia- at presentation Accelerated hypertension- Antihypertensives acute diastolic CHF Moderate wall thickening of the distal descending colon and proximal sigmoid colon with associated inflammatory change and diverticula, evidence of acute diverticulitis. COMMENT/RELEVANT DATA Meds Current Medications Medications (Trade) Dose Ordered Sig/Aruna Start Time Stop Time Status Last Admin Dose Admin Acetaminophen (Tylenol) 650 mg PRN Q6HRS PRN 02/27/19 22:30 02/27/19 22:24 650 MG Albumin Human 200 ml @ 200 mls/hr 1X PRN PRN 02/28/19 08:45 02/28/19 14:44 Albuterol Sulfate (Ventolin Neb Soln) 10 mg 1X ONCE 02/25/19 11:45 02/25/19 11:47 DC 02/25/19 12:10 10 MG Amlodipine Besylate (Norvasc) 5 mg BID 02/25/19 21:00 02/28/19 08:57 5 MG Calcitriol (Rocaltrol) 0.25 mcg DAILY 02/26/19 09:00 02/28/19 08:54 0.25 MCG Calcium Acetate (Phoslo) 1,334 mg TIDWMEALS 02/25/19 17:00 02/28/19 08:55 1,334 MG Carvedilol (Coreg) 25 mg BIDWMEALS 02/25/19 17:00 02/28/19 08:56 25 MG Ciprofloxacin/ Dextrose 200 ml @ 200 mls/hr Q24H 02/25/19 21:00 02/27/19 21:20 200 MLS/HR Dextrose (Dextrose 50%-Water Syringe) 25 gm 1X ONCE 02/25/19 11:45 02/25/19 11:47 DC 02/25/19 12:06 25 GM Diphenhydramine HCl (Benadryl) 25 mg 1X PRN PRN 02/28/19 08:45 03/01/19 08:44 Fentanyl Citrate (Fentanyl 2ml Vial) 50 mcg PRN Q4HRS PRN 02/25/19 14:00 02/26/19 22:39 50 MCG Heparin Sodium (Porcine) (Heparin Sodium) 5,000 unit Q8HRS 02/25/19 22:00 02/28/19 06:03 5,000 UNIT Info (PHARMACY MONITORING -- do not chart) 1 each PRN DAILY PRN 02/28/19 08:45 Insulin Glargine (Lantus) 10 units DAILYWSUP 02/25/19 17:00 02/27/19 17:21 10 UNITS Insulin Human Regular (HumuLIN R VIAL) 10 unit 1X ONCE 02/25/19 11:45 02/25/19 11:47 DC 02/25/19 12:08 10 UNIT Lactobacillus Rhamnosus (Culturelle) 1 cap BID 02/27/19 21:00 02/28/19 08:55 1 CAP Losartan Potassium (Cozaar) 100 mg DAILY 02/26/19 09:00 02/28/19 08:55 100 MG Magnesium Sulfate 50 ml @ 25 mls/hr PRN DAILY PRN 02/27/19 08:15 Metoclopramide HCl (Reglan) 5 mg TIDAC 02/25/19 16:30 02/28/19 07:41 5 MG Metronidazole 100 ml @ 100 mls/hr Q8HRS 02/25/19 22:00 02/28/19 05:54 100 MLS/HR Non-Formulary Medication (Epoetin Shan (Procrit)) 16,000 unit WEEKLY 03/04/19 09:00 UNV Polyethylene Glycol (miraLAX PACKET) 17 gm DAILY 02/26/19 09:00 Sennosides (Senna) 8.6 mg DAILYWSUP 02/25/19 17:00 Sodium Polystyrene Sulfonate (Kayexalate) 15 gm 1X ONCE 02/25/19 11:45 02/25/19 11:47 DC 02/25/19 12:06 15 GM Sodium Chloride 1,000 ml @ 400 mls/hr Q2H30M PRN 02/28/19 08:35 02/28/19 20:34 Tramadol HCl (Ultram) 50 mg PRN Q6HRS PRN 02/27/19 22:30 Vitamin B Complex/ Vitamin C (Elise-Monica) 1 tab DAILY 02/26/19 09:00 02/28/19 08:54 1 TAB Lab Laboratory Tests Test 02/27/19 11:42 02/27/19 17:07 02/27/19 22:11 02/28/19 07:16 Glucose (Fingerstick) 252 mg/dL (70-99) 242 mg/dL (70-99) 154 mg/dL (70-99) 95 mg/dL (70-99) Test 02/28/19 10:20 Hemoglobin 10.4 g/dL (12.0-15.5) Sodium Level 135 mmol/L (136-145) Potassium Level 4.7 mmol/L (3.5-5.1) Chloride Level 96 mmol/L (98-107) Carbon Dioxide Level 28 mmol/L (21-32) Anion Gap 11 (6-14) Blood Urea Nitrogen 51 mg/dL (7-20) Creatinine 9.3 mg/dL (0.6-1.0) Estimated GFR (Cockcroft-Gault) 5.1 Glucose Level 206 mg/dL (70-99) Calcium Level 8.7 mg/dL (8.5-10.1) Phosphorus Level 5.3 mg/dL (2.6-4.7) Magnesium Level 2.5 mg/dL (1.8-2.4) Albumin 3.0 g/dL (3.4-5.0) Results All relevant outside records, renal labs, imaging studies, telemetry/EKG's were reviewed. ELIEL VIVAR MD Feb 28, 2019 11:30
--- NOTE | 2019-02-28 14:47 | NUR ---
Discharge Note: CARINE TRAORE Discharge instructions and discharge home medications reviewed with Patient and a copy given. All questions have been answered and understanding verbalized. The following instructions and handouts were given: discharge instructions, new prescriptions, education and follow up recommendations. Discontinued lines and drains: Peripheral IV discontinued intact. Patient discharged to Home or Self Care with Spouse via Wheelchair off unit by RN.
--- NOTE | 2019-02-28 16:31 | DS ---
DATE OF DISCHARGE: 02/28/2019 ADMISSION DIAGNOSES: Diverticulitis and end-stage renal disease, on dialysis. DISCHARGE DIAGNOSIS: Resolving diverticulitis. HOSPITAL COURSE: The patient is a pleasant 68-year-old female who is on dialysis. She presented with diverticular disease with inflammation. We admitted her, gave her IV antibiotics, consulted GI and Nephrology. We did some dialysis. Basically today, I saw her and examined her. She is doing better. She wants to go home. We plan to discharge with close outpatient followup. DISPOSITION: Home. ACTIVITY: As tolerated. DIET: Renal. MEDICATIONS: Please see the MAR. TOTAL TIME: 32 minutes. GENE LUCAS DO DR: MIGUEL ANGEL/fly JOB#: [id number] / [id number]
[2019-03-04] MEDS ORDERED: EPOETIN ALFA IJ SCH (09:00)
== END 2019-02-28 14:50 | disposition home or self-care (01) | DRG 871 ==
LOC: ER 09:05 → 4 NORTH 11:16 → 6 SOUTH 18:20 → 5 NORTH 02-27 23:25
PROVIDERS: ADMIT Family Medicine; ATTEND Family Medicine
PROC: 5A1D70Z Performance of Urinary Filtration, Intermittent, Less than 6 Hours Per Day (ICD-10-PCS; principal; 2019-02-25)
PROC: 5A1D70Z Performance of Urinary Filtration, Intermittent, Less than 6 Hours Per Day (ICD-10-PCS; 2019-02-28)
DX: A41.9 Sepsis, unspecified organism (principal); I50.31 Acute diastolic (congestive) heart failure; N18.6 End stage renal disease; K57.32 Diverticulitis of large intestine without perforation or abscess without bleeding; I13.2 Hypertensive heart and chronic kidney disease with heart failure and with stage 5 chronic kidney disease, or end stage renal disease; E87.5 Hyperkalemia; E83.52 Hypercalcemia; D64.9 Anemia, unspecified; E11.22 Type 2 diabetes mellitus with diabetic chronic kidney disease; E78.5 Hyperlipidemia, unspecified; E87.8 Other disorders of electrolyte and fluid balance, not elsewhere classified; F41.9 Anxiety disorder, unspecified; J44.9 Chronic obstructive pulmonary disease, unspecified; K59.09 Other constipation; M19.90 Unspecified osteoarthritis, unspecified site; Z99.2 Dependence on renal dialysis; Z79.82 Long term (current) use of aspirin; Z90.711 Acquired absence of uterus with remaining cervical stump; Z82.49 Family history of ischemic heart disease and other diseases of the circulatory system; Z80.3 Family history of malignant neoplasm of breast; Z80.0 Family history of malignant neoplasm of digestive organs
CPT/HCPCS: 36415; 74176; 80053; 80069; 82550; 82962; 83690; 83735; 85007; 85018; 85025; 85610; 93005; 94644; 99291; 99292; J0744; J1644; J1815; J3010; J3490; J7042; J7613; J8597

== ENCOUNTER 2019-06-26 01:04 | Inpatient (IN) | payer MEDICARE ==
[~2019-06-26] VITALS: Ht 157.5 cm; Wt 67.2 kg
[2019-06-26 01:40] LABS: BASO % 1 % (0-3); EOS # 0.2 x10^3/uL (0.0-0.7); EOS % 4 % (0-3); HEMATOCRIT 36.7 % (36.0-47.0); LYMPH # 1.2 x10^3/uL (1.0-4.8); LYMPH % 20 % (24-48); MEAN CORPUSCULAR HEMOGLOBIN 32 pg (25-35); MEAN CORPUSCULAR HGB CONC 33 g/dL (31-37); MEAN CORPUSCULAR VOLUME 97 fL (79-100); MONO # 0.5 x10^3/uL (0.0-1.1); MONO % 8 % (0-9); NEUT # 4.1 x10^3/uL (1.8-7.7); NEUT % 67 % (31-73); PLATELET COUNT 234 x10^3/uL (140-400); RED BLOOD COUNT 3.79 x10^6/uL (3.50-5.40); RED CELL DISTRIBUTION WIDTH 18.2 % (11.5-14.5); WHITE BLOOD COUNT 6.1 x10^3/uL (4.0-11.0)
--- NOTE | 2019-06-26 03:04 | RAD ---
CT HEAD WO CONTRAST History: Headache. Elevated BP. Comparison: None. Technique: Noncontrast CT imaging was performed of the head. Coronal reconstruction was performed. Exposure: One or more of the following individualized dose reduction techniques were utilized for this examination: 1. Automated exposure control 2. Adjustment of the mA and/or kV according to patient size 3. Use of iterative reconstruction technique. Findings: No intracranial hemorrhage. No mass effect. No hydrocephalus. Foci of decreased attenuation within the hemispheric white matter, most often due to chronic microvascular ischemia. Subcortical calcifications within the left parietal lobe and occipital lobe. Imaged orbits are unremarkable. Imaged paranasal sinuses and mastoid air cells are clear. Impression: 1. No acute intracranial abnormality. 2. Sequela chronic microvascular ischemia. 3. Left parieto-occipital parenchymal calcifications, may relate to prior insult or infection such as neurocysticercosis. Electronically signed by: Caesar Stevens DO (06/26/2019 3:01 AM) [id number]
--- NOTE | 2019-06-26 03:09 | RAD ---
PORTABLE CHEST 1V History: Elevated BP Comparison: January 16, 2019 Findings: Right midlung linear atelectasis or scarring. No consolidation or pleural effusion. Normal heart size. No pneumothorax. Postop changes right lateral chest wall. Impression: 1. Right midlung scarring or atelectasis. Electronically signed by: Caesar Stevens DO (06/26/2019 3:07 AM) [facility]
[2019-06-26 03:21] LABS: CALCIUM 9.4 mg/dL (8.5-10.1); CREATININE 8.5 mg/dL (0.6-1.0); GFR 5.7; POTASSIUM 4.3 mmol/L (3.5-5.1)
[2019-06-26 03:29] LABS: ALBUMIN 3.4 g/dL (3.4-5.0); ALBUMIN/GLOBULIN RATIO 0.9 (1.0-1.7); MAGNESIUM 2.6 mg/dL (1.8-2.4); TOTAL BILIRUBIN 0.3 mg/dL (0.2-1.0); TOTAL PROTEIN 7.4 g/dL (6.4-8.2)
--- NOTE | 2019-06-26 03:30 | PHYS DOC ---
Past Medical History Past Medical History: Diabetes-Type II, Hypertension, Renal Failure, Other Additional Past Medical Histor: UNKNOWN HX Past Surgical History: Hysterectomy, Other Additional Past Surgical Histo: PERITONEAL CATHERER REMOVED, FISTULA LUE, ABD SURG FOR PERIOTONITIS Alcohol Use: None Drug Use: None Adult General Chief Complaint Chief Complaint: HEADACHE HPI HPI Patient is a 68-year-old female who presents with complaint of right-sided headache that started earlier today. She states the pain is progressively getting worse. She rates pain at an 8 out of 10. She does indicate that she was woken up this morning with loud ringing in her right ear. She denies any chest pain or shortness of breath. She denies any visual changes. She denies any nausea or vomiting. She also denies any fever. Patient states that nothing seems to improve her symptoms. She does indicate that she has a history of high blood pressure and states that she takes medications that are prescribed as directed.[] Review of Systems Review of Systems Constitutional: Denies fever or chills [] Eyes: Denies change in visual acuity, redness, or eye pain [] Respiratory: Denies cough or shortness of breath [] Cardiovascular: No additional information not addressed in HPI [] GI: Denies abdominal pain, nausea, vomiting or diarrhea [] Neurologic: Complains of headache without focal weakness or sensory changes [] All other systems were reviewed and found to be within normal limits, except as documented in this note. Current Medications Current Medications Current Medications Medications (Trade) Dose Ordered Sig/Aruna Start Time Stop Time Status Last Admin Dose Admin Fentanyl Citrate (Fentanyl 2ml Vial) 50 mcg 1X ONCE 06/26/19 04:00 06/26/19 04:01 DC 06/26/19 04:13 50 MCG Hydralazine HCl (Apresoline Inj) 10 mg 1X ONCE 06/26/19 04:00 06/26/19 04:01 DC 06/26/19 04:13 10 MG Ondansetron HCl (Zofran) 4 mg 1X ONCE 06/26/19 04:00 06/26/19 04:01 DC 06/26/19 04:13 4 MG Allergies Allergies Allergies Coded Allergies Type Severity Reaction Last Updated Verified No Known Drug Allergies 01/31/15 No Physical Exam Physical Exam Constitutional: Well developed, well nourished, no acute distress, non-toxic appearance. [] HENT: Normocephalic, atraumatic, bilateral external ears normal, oropharynx moist, no oral exudates, nose normal. [] Eyes: PERRLA, EOMI, conjunctiva normal, no discharge. [] Neck: Normal range of motion, no tenderness, supple, no stridor. [] Cardiovascular: Regular rate and rhythm[] Lungs & Thorax: Bilateral breath sounds clear to auscultation [] Abdomen: Bowel sounds normal, soft, no tenderness. [] Skin: Warm, dry, no erythema, no rash. [] Extremities: No tenderness, no cyanosis, no clubbing, ROM intact. [] Neurologic: Alert and oriented X 3, no focal deficits noted. [] Current Patient Data Vital Signs Vital Signs Date Time Temp Pulse Resp B/P (MAP) Pulse Ox O2 Delivery O2 Flow Rate FiO2 06/26/19 04:13 20 98 Room Air 06/26/19 04:13 83 227/107 Lab Values Laboratory Tests Test 06/26/19 01:24 06/26/19 03:00 White Blood Count 6.1 x10^3/uL (4.0-11.0) Red Blood Count 3.79 x10^6/uL (3.50-5.40) Hemoglobin 12.0 g/dL (12.0-15.5) Hematocrit 36.7 % (36.0-47.0) Mean Corpuscular Volume 97 fL (79-100) Mean Corpuscular Hemoglobin 32 pg (25-35) Mean Corpuscular Hemoglobin Concent 33 g/dL (31-37) Red Cell Distribution Width 18.2 % (11.5-14.5) H Platelet Count 234 x10^3/uL (140-400) Neutrophils (%) (Auto) 67 % (31-73) Lymphocytes (%) (Auto) 20 % (24-48) L Monocytes (%) (Auto) 8 % (0-9) Eosinophils (%) (Auto) 4 % (0-3) H Basophils (%) (Auto) 1 % (0-3) Neutrophils # (Auto) 4.1 x10^3/uL (1.8-7.7) Lymphocytes # (Auto) 1.2 x10^3/uL (1.0-4.8) Monocytes # (Auto) 0.5 x10^3/uL (0.0-1.1) Eosinophils # (Auto) 0.2 x10^3/uL (0.0-0.7) Basophils # (Auto) 0.0 x10^3/uL (0.0-0.2) Sodium Level 144 mmol/L (136-145) Potassium Level 4.3 mmol/L (3.5-5.1) Chloride Level 97 mmol/L (98-107) L Carbon Dioxide Level 38 mmol/L (21-32) H Anion Gap 9 (6-14) Blood Urea Nitrogen 65 mg/dL (7-20) H Creatinine 8.5 mg/dL (0.6-1.0) H Estimated GFR (Cockcroft-Gault) 5.7 BUN/Creatinine Ratio 8 (6-20) Glucose Level 149 mg/dL (70-99) H Calcium Level 9.4 mg/dL (8.5-10.1) Magnesium Level 2.6 mg/dL (1.8-2.4) H Total Bilirubin 0.3 mg/dL (0.2-1.0) Aspartate Amino Transferase (AST) 16 U/L (15-37) Alanine Aminotransferase (ALT) 15 U/L (14-59) Alkaline Phosphatase 102 U/L (46-116) Total Protein 7.4 g/dL (6.4-8.2) Albumin 3.4 g/dL (3.4-5.0) Albumin/Globulin Ratio 0.9 (1.0-1.7) L Laboratory Tests 06/26/19 01:24 Laboratory Tests 06/26/19 03:00 EKG EKG EKG demonstrates normal sinus rhythm with rate of 84.[] Radiology/Procedures Radiology/Procedures [] Impressions: CT HEAD WO CONTRAST History: Headache. Elevated BP. Comparison: None. Technique: Noncontrast CT imaging was performed of the head. Coronal reconstruction was performed. Exposure: One or more of the following individualized dose reduction techniques were utilized for this examination: 1. Automated exposure control 2. Adjustment of the mA and/or kV according to patient size 3. Use of iterative reconstruction technique. Findings: No intracranial hemorrhage. No mass effect. No hydrocephalus. Foci of decreased attenuation within the hemispheric white matter, most often due to chronic microvascular ischemia. Subcortical calcifications within the left parietal lobe and occipital lobe. Imaged orbits are unremarkable. Imaged paranasal sinuses and mastoid air cells are clear. Impression: 1. No acute intracranial abnormality. 2. Sequela chronic microvascular ischemia. 3. Left parieto-occipital parenchymal calcifications, may relate to prior insult or infection such as neurocysticercosis. Electronically signed by: Caesar Stevens DO (06/26/2019 3:01 AM) [facility] PORTABLE CHEST 1V History: Elevated BP Comparison: January 16, 2019 Findings: Right midlung linear atelectasis or scarring. No consolidation or pleural effusion. Normal heart size. No pneumothorax. Postop changes right lateral chest wall. Impression: 1. Right midlung scarring or atelectasis. Electronically signed by: Caesar Stevens DO (06/26/2019 3:07 AM) [employer] Course & Med Decision Making Course & Med Decision Making Pertinent Labs and Imaging studies reviewed. (See chart for details) [] Dragon Disclaimer Dragon Disclaimer This electronic medical record was generated, in whole or in part, using a voice recognition dictation system. Departure Departure Impression: Primary Impression: Hypertensive crisis Additional Impressions: Headache ESRD (end stage renal disease) Tinnitus of right ear Disposition: ADMITTED INPATIENT Admitting Physician: [facility] (Dr. Lundberg) Condition: IMPROVED Referrals: UNKNOWN PCP NAME (PCP) Problem Qualifiers Additional Impressions: Headache Headache type: unspecified Headache chronicity pattern: acute headache Intractability: not intractable Qualified Codes: R51 - Headache KEILY JIMÉNEZ Jr., DO Jun 26, 2019 03:30
[2019-06-26] MEDS ORDERED: ONDANSETRON PF 4 MG/2 ML VIAL. IV ONE (04:00)
[2019-06-26] MEDS ORDERED: hydrALAZINE 20 MG/ML VIAL. IVP ONE ×3 (04:00→09:30)
[2019-06-26] MEDS ORDERED: fentaNYL PF VIAL 100 MCG/2 ML VIAL IVP ONE ×2 (04:00→05:00)
[2019-06-26] MEDS ORDERED: ONDANSETRON PF 4 MG/2 ML VIAL. IV PRN (04:45)
[2019-06-26] MEDS ORDERED: fentaNYL PF VIAL 100 MCG/2 ML VIAL IV PRN (04:45)
[2019-06-26 07:00] VITALS: BP 196/87
[2019-06-26] MEDS ORDERED: INSU100V6 SQ (07:52)
--- NOTE | 2019-06-26 08:57 | PDOC2 ---
CONSULT Date of Consult Date of Consult DATE: 06/26/19 TIME: 08:45 Reason for Consult Reason for Consult: ESRD Referring Physician Referring Physician: sita Identification/Chief Complaint Chief Complaint MUSA Source Source: Chart review, Patient History of Present Illness Reason for Visit: Miss Garcia is a 68-year-old Afro-[place]ian female with ESRD. She does not know the precise etiology of her ESRD but thinks it may be due to hypertension. She has never had a kidney biopsy per se. She dialyzes under the care of physicians at [facility]. She goes on a Thursday basis. She is to have a primary care physician at but he has moved on and hence she is not seeking care at anymore. He is to do peritoneal dialysis in the past but is now on hemodialysis. She is an ESRD for approximately 6-7 years that she is aware of. She developed headaches and ringing in her years and presented to the ER for fu rther evaluation. In the ER she was noted to have blood pressures in the 220s systolic. She was given temporizing medications (2 doses of IV hydralazine) in the ER and sent to the ICU for further evaluation and treatment. She is not aware of having missed any of her home blood pressure medications. She continues to have some ringing in her years currently. I have just restarted her home blood pressure medications. she has been evaluated by cardiology and it is anticipated that they will be making changes t o her blood pressure regimen also. Past Medical History Cardiovascular: HTN, Hyperlipidemia Heme/Onc: Anemia NOS Hepatobiliary: No pertinent hx Psych: Anxiety Musculoskeletal: Osteoarthritis Infectious disease: Other Renal/: Chronic renal failure Endocrine: Diabetes Past Surgical History Past Surgical History: Breast Biopsy, Hysterectomy, Other Family History Family History: Coronary Artery Disease, Hypertension Social History ALCOHOL: none Drugs: None Lives: with Family Domestic Violence: Neg Current Problem List Problem List Problems Medical Problems: (1) Headache Status: Acute (2) Hypertensive crisis Status: Acute (3) Tinnitus of right ear Status: Acute Current Medications Current Medications Current Medications Hydralazine HCl (Apresoline Inj) 10 mg 1X ONCE IVP Last administered on 06/17 at 04:13; Start 06/26/19 at 04:00; Stop 06/26/19 at 04:01; Status DC Fentanyl Citrate (Fentanyl 2ml Vial) 50 mcg 1X ONCE IVP Last administered on 06/26/19at 04:13; Start 06/26/19 at 04:00; Stop 06/26/19 at 04:01; Status DC Ondansetron HCl (Zofran) 4 mg 1X ONCE IV Last administered on 06/26/19at 04:13; Start 06/26/19 at 04:00; Stop 06/26/19 at 04:01; Status DC Fentanyl Citrate (Fentanyl 2ml Vial) 50 mcg 1X ONCE IVP ; Start 06/26/19 at 05:00; Stop 06/26/19 at 05:01; Status DC Hydralazine HCl (Apresoline Inj) 10 mg 1X ONCE IVP Last administered on 06/26/19at 05:10; Start 06/26/19 at 05:00; Stop 06/26/19 at 05:01; Status DC Ondansetron HCl (Zofran) 4 mg PRN Q8HRS PRN IV NAUSEA/VOMITING 1ST CHOICE; Start 06/26/19 at 04:45; Stop 06/27/19 at 04:44 Fentanyl Citrate (Fentanyl 2ml Vial) 50 mcg PRN Q1HR PRN IV SEVERE PAIN 7-10; Start 06/26/19 at 04:45; Stop 06/27/19 at 04:44 Active Scripts Active Reported Humalog (Insulin Lispro) 100 Unit/1 Ml Vial 100 Unit SQ TIDACHC Miralax (Polyethylene Glycol 3350) 17 Gm Powd.pack 1 Packet PO DAILY Sennosides 8.6 Mg Tablet 8.6 Mg PO DAILYWSUP Metoclopramide Hcl 5 Mg Tablet 5 Mg PO TID Losartan Potassium 100 Mg Tablet 1 Tab PO DAILY Elise-Monica Tablet (Folic Acid/Vitamin B Comp W-C) 0.8 Mg Tablet 0.8 Mg PO DAILY Procrit (Epoetin Shan) 20,000 Unit/2 Ml Vial 16,000 Unit IJ WEEKLY Carvedilol 25 Mg Tablet 1 Tab PO BID Phoslo (Calcium Acetate) 667 Mg Capsule 2 Cap PO TIDWMEALS Calcitriol 0.25 Mcg Capsule 1 Cap PO DAILY Amlodipine Besylate 5 Mg Tablet 1 Tab PO BID Allergies Allergies: Coded Allergies: No Known Drug Allergies (Unverified , 01/31/15) ROS Review of System 14 point review of systems was conducted with the patient and is grossly negative other than the positives as listed under history of present illness Physical Exam Physical Exam General Appearance: Awake Alert Oriented x 3 In no Distress Eyes: VIsion Unchanged Conjunctiva Normal EN: No EN Drainage Mucous Memb. moist, halitosis Neck: no JVD min JVP Supple no Thyromegaly CVS: S1 S2 soft Murmur No Gallop No Rub no Edema Resp: no Rales no Rhonchi no Acc. Muscle use GI: BAS +ve NO Bruit Non Tender Non Distended : no CVA tenderness; no Suprapubic Tenderness SKIN: no Rashes Breast Exam deferred Mu.Sk: Adequate ROM no Muscle Atrophy Heme: Unable to palpate Obvious LAD no Splenomegaly NEURO: Good Strength and Tone Cranial Nerves II - XII grossly intact Psych: not Depressed no Active hallucination Vital Signs Vital Signs Date Time Temp Pulse Resp B/P (MAP) Pulse Ox O2 Delivery O2 Flow Rate FiO2 06/26/19 08:00 Room Air 06/26/19 07:00 97.9 87 14 196/87 (123) 100 97.9 Assessment & Plan ESRD Current FLuid and E-lyte status does not necessitate emergent need for Dialysis. Will re-evaluate for Dialysis in am and continue on Thursday schedule. Anemia: Hold Epogen currently due to accelerated hypertension and hemoglobin of 12 Ointment HTN, possible hypertensive urgency Current BP meds reviewed. Restart home medications and reevaluate blood pressure. Bone & Mineral: Continue current phosphate binder regimen Discussed Plan of Care and prognosis etc. at length with patient in ICU nurse Labs Labs Laboratory Tests Test 06/26/19 01:24 06/26/19 03:00 White Blood Count 6.1 x10^3/uL (4.0-11.0) Red Blood Count 3.79 x10^6/uL (3.50-5.40) Hemoglobin 12.0 g/dL (12.0-15.5) Hematocrit 36.7 % (36.0-47.0) Mean Corpuscular Volume 97 fL (79-100) Mean Corpuscular Hemoglobin 32 pg (25-35) Mean Corpuscular Hemoglobin Concent 33 g/dL (31-37) Red Cell Distribution Width 18.2 % (11.5-14.5) Platelet Count 234 x10^3/uL (140-400) Neutrophils (%) (Auto) 67 % (31-73) Lymphocytes (%) (Auto) 20 % (24-48) Monocytes (%) (Auto) 8 % (0-9) Eosinophils (%) (Auto) 4 % (0-3) Basophils (%) (Auto) 1 % (0-3) Neutrophils # (Auto) 4.1 x10^3/uL (1.8-7.7) Lymphocytes # (Auto) 1.2 x10^3/uL (1.0-4.8) Monocytes # (Auto) 0.5 x10^3/uL (0.0-1.1) Eosinophils # (Auto) 0.2 x10^3/uL (0.0-0.7) Basophils # (Auto) 0.0 x10^3/uL (0.0-0.2) Sodium Level 144 mmol/L (136-145) Potassium Level 4.3 mmol/L (3.5-5.1) Chloride Level 97 mmol/L (98-107) Carbon Dioxide Level 38 mmol/L (21-32) Anion Gap 9 (6-14) Blood Urea Nitrogen 65 mg/dL (7-20) Creatinine 8.5 mg/dL (0.6-1.0) Estimated GFR (Cockcroft-Gault) 5.7 BUN/Creatinine Ratio 8 (6-20) Glucose Level 149 mg/dL (70-99) Calcium Level 9.4 mg/dL (8.5-10.1) Magnesium Level 2.6 mg/dL (1.8-2.4) Total Bilirubin 0.3 mg/dL (0.2-1.0) Aspartate Amino Transf (AST/SGOT) 16 U/L (15-37) Alanine Aminotransferase (ALT/SGPT) 15 U/L (14-59) Alkaline Phosphatase 102 U/L (46-116) Total Protein 7.4 g/dL (6.4-8.2) Albumin 3.4 g/dL (3.4-5.0) Albumin/Globulin Ratio 0.9 (1.0-1.7) Laboratory Tests Test 06/26/19 01:24 06/26/19 03:00 White Blood Count 6.1 x10^3/uL (4.0-11.0) Red Blood Count 3.79 x10^6/uL (3.50-5.40) Hemoglobin 12.0 g/dL (12.0-15.5) Hematocrit 36.7 % (36.0-47.0) Mean Corpuscular Volume 97 fL (79-100) Mean Corpuscular Hemoglobin 32 pg (25-35) Mean Corpuscular Hemoglobin Concent 33 g/dL (31-37) Red Cell Distribution Width 18.2 % (11.5-14.5) Platelet Count 234 x10^3/uL (140-400) Neutrophils (%) (Auto) 67 % (31-73) Lymphocytes (%) (Auto) 20 % (24-48) Monocytes (%) (Auto) 8 % (0-9) Eosinophils (%) (Auto) 4 % (0-3) Basophils (%) (Auto) 1 % (0-3) Neutrophils # (Auto) 4.1 x10^3/uL (1.8-7.7) Lymphocytes # (Auto) 1.2 x10^3/uL (1.0-4.8) Monocytes # (Auto) 0.5 x10^3/uL (0.0-1.1) Eosinophils # (Auto) 0.2 x10^3/uL (0.0-0.7) Basophils # (Auto) 0.0 x10^3/uL (0.0-0.2) Sodium Level 144 mmol/L (136-145) Potassium Level 4.3 mmol/L (3.5-5.1) Chloride Level 97 mmol/L (98-107) Carbon Dioxide Level 38 mmol/L (21-32) Anion Gap 9 (6-14) Blood Urea Nitrogen 65 mg/dL (7-20) Creatinine 8.5 mg/dL (0.6-1.0) Estimated GFR (Cockcroft-Gault) 5.7 BUN/Creatinine Ratio 8 (6-20) Glucose Level 149 mg/dL (70-99) Calcium Level 9.4 mg/dL (8.5-10.1) Magnesium Level 2.6 mg/dL (1.8-2.4) Total Bilirubin 0.3 mg/dL (0.2-1.0) Aspartate Amino Transf (AST/SGOT) 16 U/L (15-37) Alanine Aminotransferase (ALT/SGPT) 15 U/L (14-59) Alkaline Phosphatase 102 U/L (46-116) Total Protein 7.4 g/dL (6.4-8.2) Albumin 3.4 g/dL (3.4-5.0) Albumin/Globulin Ratio 0.9 (1.0-1.7) Review All relevant outside records, renal labs, imaging studies, telemetry/EKG's were reviewed. Images Images Comparison: January 16, 2019 Findings: Right midlung linear atelectasis or scarring. No consolidation or pleural effusion. Normal heart size. No pneumothorax. Postop changes right lateral chest wall. Impression: 1. Right midlung scarring or atelectasis. JEFF CRAMER MD Jun 26, 2019 08:57
[2019-06-26] MEDS: CARVEDILOL 12.5 MG TABLET. PO SCH ×2 (09:32→16:14)
[2019-06-26] MEDS: amLODIPine BESYLATE 5 MG TABLET PO SCH ×2 (09:32→20:55)
[2019-06-26] MEDS: LOSARTAN POTASSIUM 50 MG TABLET. PO SCH (09:32)
[2019-06-26 11:00] VITALS: BP 136/61
--- NOTE | 2019-06-26 12:09 | PDOC2 ---
CONSULT Date of Consult Date of Consult DATE: 06/26/19 TIME: 12:04 Reason for Consult Reason for Consult: Accelerated hypertension Referring Physician Referring Physician: Dr. Lundberg Identification/Chief Complaint Chief Complaint Headache and right ear ringing Source Source: Chart review, Patient History of Present Illness Reason for Visit: The patient is a 68-year-old female who reported increasing headache and right ear ringing yesterday and came to the emergency room. She denied missing any medications. Her initial systolic blood pressure was greater than 120. She denied chest pain. Her history is significant for end-stage renal disease on hemodialysis as well as diabetes mellitus. She was initially treated with hydralazine and is feeling better at this time with a systolic pressure approximately 160. Past Medical History Cardiovascular: HTN, Hyperlipidemia Heme/Onc: Anemia NOS Hepatobiliary: No pertinent hx Psych: Anxiety Musculoskeletal: Osteoarthritis Infectious disease: Other Renal/: Chronic renal failure Endocrine: Diabetes Past Surgical History Past Surgical History: Breast Biopsy, Hysterectomy, Other (pervious peritoneal dialysis catheter) Family History Family History: Coronary Artery Disease, Hypertension Social History No ALCOHOL: none Drugs: None Lives: with Family Domestic Violence: Neg Current Problem List Problem List Problems Medical Problems: (1) Headache Status: Acute (2) Hypertensive crisis Status: Acute (3) Tinnitus of right ear Status: Acute Current Medications Current Medications Current Medications Hydralazine HCl (Apresoline Inj) 10 mg 1X ONCE IVP Last administered on 06/26/19at 04:13; Start 06/26/19 at 04:00; Stop 06/26/19 at 04:01; Status DC Fentanyl Citrate (Fentanyl 2ml Vial) 50 mcg 1X ONCE IVP Last administered on 06/26/19at 04:13; Start 06/26/19 at 04:00; Stop 06/26/19 at 04:01; Status DC Ondansetron HCl (Zofran) 4 mg 1X ONCE IV Last administered on 06/26/19at 04:13; Start 06/26/19 at 04:00; Stop 06/26/19 at 04:01; Status DC Fentanyl Citrate (Fentanyl 2ml Vial) 50 mcg 1X ONCE IVP ; Start 06/26/19 at 05:00; Stop 06/26/19 at 05:01; Status DC Hydralazine HCl (Apresoline Inj) 10 mg 1X ONCE IVP Last administered on 06/26/19at 05:10; Start 06/26/19 at 05:00; Stop 06/26/19 at 05:01; Status DC Ondansetron HCl (Zofran) 4 mg PRN Q8HRS PRN IV NAUSEA/VOMITING 1ST CHOICE; Start 06/26/19 at 04:45; Stop 06/27/19 at 04:44 Fentanyl Citrate (Fentanyl 2ml Vial) 50 mcg PRN Q1HR PRN IV SEVERE PAIN 7-10; Start 06/26/19 at 04:45; Stop 06/27/19 at 04:44 Hydralazine HCl (Apresoline Inj) 10 mg 1X ONCE IVP Last administered on 06/26/19at 09:32; Start 06/26/19 at 09:30; Stop 06/26/19 at 09:31; Status DC Carvedilol (Coreg) 25 mg BIDWMEALS PO Last administered on 06/26/19at 09:32; Start 06/26/19 at 10:00 Amlodipine Besylate (Norvasc) 5 mg BID PO Last administered on 06/26/19at 09:32; Start 06/26/19 at 10:00 Losartan Potassium (Cozaar) 100 mg DAILY PO Last administered on 06/26/19at 09:32; Start 06/26/19 at 10:00 Active Scripts Active Reported Humalog (Insulin Lispro) 100 Unit/1 Ml Vial 100 Unit SQ TIDACHC Miralax (Polyethylene Glycol 3350) 17 Gm Powd.pack 1 Packet PO DAILY Sennosides 8.6 Mg Tablet 8.6 Mg PO DAILYWSUP Metoclopramide Hcl 5 Mg Tablet 5 Mg PO TID Losartan Potassium 100 Mg Tablet 1 Tab PO DAILY Elise-Monica Tablet (Folic Acid/Vitamin B Comp W-C) 0.8 Mg Tablet 0.8 Mg PO DAILY Procrit (Epoetin Shan) 20,000 Unit/2 Ml Vial 16,000 Unit IJ WEEKLY Carvedilol 25 Mg Tablet 1 Tab PO BID Phoslo (Calcium Acetate) 667 Mg Capsule 2 Cap PO TIDWMEALS Calcitriol 0.25 Mcg Capsule 1 Cap PO DAILY Amlodipine Besylate 5 Mg Tablet 1 Tab PO BID Allergies Allergies: Coded Allergies: No Known Drug Allergies (Unverified , 01/31/15) ROS General: YES: Fatigue HEENT: YES: Heacaches, Tinnitus Physical Exam General: mild distress HEENT: Atraumatic Lungs: Clear to auscultation Heart: Regular rate Abdomen: Normal bowel sounds Vitals VITALS Vital Signs Date Time Temp Pulse Resp B/P (MAP) Pulse Ox O2 Delivery O2 Flow Rate FiO2 06/26/19 11:00 98.8 71 14 136/61 (86) 97 Room Air 98.8 Labs Labs Laboratory Tests Test 06/26/19 01:24 06/26/19 03:00 White Blood Count 6.1 x10^3/uL (4.0-11.0) Red Blood Count 3.79 x10^6/uL (3.50-5.40) Hemoglobin 12.0 g/dL (12.0-15.5) Hematocrit 36.7 % (36.0-47.0) Mean Corpuscular Volume 97 fL (79-100) Mean Corpuscular Hemoglobin 32 pg (25-35) Mean Corpuscular Hemoglobin Concent 33 g/dL (31-37) Red Cell Distribution Width 18.2 % (11.5-14.5) Platelet Count 234 x10^3/uL (140-400) Neutrophils (%) (Auto) 67 % (31-73) Lymphocytes (%) (Auto) 20 % (24-48) Monocytes (%) (Auto) 8 % (0-9) Eosinophils (%) (Auto) 4 % (0-3) Basophils (%) (Auto) 1 % (0-3) Neutrophils # (Auto) 4.1 x10^3/uL (1.8-7.7) Lymphocytes # (Auto) 1.2 x10^3/uL (1.0-4.8) Monocytes # (Auto) 0.5 x10^3/uL (0.0-1.1) Eosinophils # (Auto) 0.2 x10^3/uL (0.0-0.7) Basophils # (Auto) 0.0 x10^3/uL (0.0-0.2) Sodium Level 144 mmol/L (136-145) Potassium Level 4.3 mmol/L (3.5-5.1) Chloride Level 97 mmol/L (98-107) Carbon Dioxide Level 38 mmol/L (21-32) Anion Gap 9 (6-14) Blood Urea Nitrogen 65 mg/dL (7-20) Creatinine 8.5 mg/dL (0.6-1.0) Estimated GFR (Cockcroft-Gault) 5.7 BUN/Creatinine Ratio 8 (6-20) Glucose Level 149 mg/dL (70-99) Calcium Level 9.4 mg/dL (8.5-10.1) Magnesium Level 2.6 mg/dL (1.8-2.4) Total Bilirubin 0.3 mg/dL (0.2-1.0) Aspartate Amino Transf (AST/SGOT) 16 U/L (15-37) Alanine Aminotransferase (ALT/SGPT) 15 U/L (14-59) Alkaline Phosphatase 102 U/L (46-116) Total Protein 7.4 g/dL (6.4-8.2) Albumin 3.4 g/dL (3.4-5.0) Albumin/Globulin Ratio 0.9 (1.0-1.7) Laboratory Tests Test 06/26/19 01:24 06/26/19 03:00 White Blood Count 6.1 x10^3/uL (4.0-11.0) Red Blood Count 3.79 x10^6/uL (3.50-5.40) Hemoglobin 12.0 g/dL (12.0-15.5) Hematocrit 36.7 % (36.0-47.0) Mean Corpuscular Volume 97 fL (79-100) Mean Corpuscular Hemoglobin 32 pg (25-35) Mean Corpuscular Hemoglobin Concent 33 g/dL (31-37) Red Cell Distribution Width 18.2 % (11.5-14.5) Platelet Count 234 x10^3/uL (140-400) Neutrophils (%) (Auto) 67 % (31-73) Lymphocytes (%) (Auto) 20 % (24-48) Monocytes (%) (Auto) 8 % (0-9) Eosinophils (%) (Auto) 4 % (0-3) Basophils (%) (Auto) 1 % (0-3) Neutrophils # (Auto) 4.1 x10^3/uL (1.8-7.7) Lymphocytes # (Auto) 1.2 x10^3/uL (1.0-4.8) Monocytes # (Auto) 0.5 x10^3/uL (0.0-1.1) Eosinophils # (Auto) 0.2 x10^3/uL (0.0-0.7) Basophils # (Auto) 0.0 x10^3/uL (0.0-0.2) Sodium Level 144 mmol/L (136-145) Potassium Level 4.3 mmol/L (3.5-5.1) Chloride Level 97 mmol/L (98-107) Carbon Dioxide Level 38 mmol/L (21-32) Anion Gap 9 (6-14) Blood Urea Nitrogen 65 mg/dL (7-20) Creatinine 8.5 mg/dL (0.6-1.0) Estimated GFR (Cockcroft-Gault) 5.7 BUN/Creatinine Ratio 8 (6-20) Glucose Level 149 mg/dL (70-99) Calcium Level 9.4 mg/dL (8.5-10.1) Magnesium Level 2.6 mg/dL (1.8-2.4) Total Bilirubin 0.3 mg/dL (0.2-1.0) Aspartate Amino Transf (AST/SGOT) 16 U/L (15-37) Alanine Aminotransferase (ALT/SGPT) 15 U/L (14-59) Alkaline Phosphatase 102 U/L (46-116) Total Protein 7.4 g/dL (6.4-8.2) Albumin 3.4 g/dL (3.4-5.0) Albumin/Globulin Ratio 0.9 (1.0-1.7) Images Images Chest x-ray shows mild right atelectasis. CT scan of the head shows no acute changes. Assessment/Plan Assessment/Plan 1. Accelerated hypertension. Patient's blood pressure has improved on hydralazine. We'll restart home medications and monitor. Hydralazine when necessary. We'll check an echocardiogram to evaluate LV function and wall thickness. 2. End-stage renal disease. Hemodialysis at . Being reviewed by the renal service. 3. Headache and right sided tinnitus. Improved with better blood pressure contro l. No acute changes on CT scan of the head. 4. Diabetes mellitus. As per the primary service. Thank you for allowing us to participate in the care of your patient. CJ ABDI MD Jun 26, 2019 12:09
--- NOTE | 2019-06-26 14:38 | EKG ---
[facility] [address] [place] [address] Test Date: 2019-06-26 Test Time: 01:45:30 Pat Name: JOAQUIM TRAORE Department: Room: Gender: F Simulation Specialist: : 1950 Requested By: KEILY JIMÉNEZ Order Number: [id number] Reading MD: Measurements Intervals [place] Rate: 84 P: 46 NM: 172 QRS: -11 QRSD: 78 T: 62 QT: 392 QTc: 467 Interpretive Statements SINUS RHYTHM LEFTWARD AXIS NO SPECIFIC ECG ABNORMALITIES RI6.01 No previous ECG available for comparison
[2019-06-26 15:00] VITALS: BP 176/80
--- NOTE | 2019-06-26 17:52 | HP ---
ADMIT DATE: 06/26/2019 CHIEF COMPLAINT: Headache, chest pain. HISTORY OF PRESENT ILLNESS: The patient is a pleasant 68-year-old female who presented with headache and chest pain. While in the ER, she was noted to have a hypertensive crisis with blood pressures in the 200s. She is also on dialysis. I discussed the case with ER physician. We are going to admit the patient and get her dialyzed and get her pressures under control. She has hypertensive emergency. PAST MEDICAL HISTORY: Noncompliance diabetes, hypertension, end-stage renal disease, peritoneal catheter fistula in the left upper extremity, peritonitis. ALLERGIES: None. FAMILY HISTORY: Diabetes. SOCIAL HISTORY: She does not drink, smoke or take drugs. MEDICATIONS: Reviewed, please refer to the MRAD. REVIEW OF SYSTEMS: GENERAL: No history of weight change, weakness or fevers. SKIN: No bruising, hair changes or rashes. EYES: No blurred, double or loss of vision. EARS: She complains of some tinnitus. NOSE AND THROAT: No history of nosebleeds, hoarseness or sore throat. HEART: No history of palpitations, chest pain or shortness of breath on exertion. LUNGS: Denies cough, hemoptysis, wheezing or shortness of breath. GASTROINTESTINAL: Denies changes in appetite, nausea, vomiting, diarrhea or constipation. GENITOURINARY: She complains of abdominal pain. NEUROLOGIC: She complains of headache. PSYCHIATRIC: No history of panic, anxiety or depression. ENDOCRINE: No history of heat or cold intolerance, polyuria or polydipsia. EXTREMITIES: She complains of some leg pain. PHYSICAL EXAMINATION: VITAL SIGNS: Her highest blood pressure was 225/105, now down to 196/87. GENERAL: No apparent distress. Alert and oriented. HEENT: Head is normocephalic, atraumatic, pupils were equally round and reactive to light and accommodation. NECK: Supple, no JVD, no thyromegaly was noted. LUNGS: Clear to auscultation in all lung tejeda without rhonchi or wheezing. HEART: RRR, S1, S2 present. Peripheral pulses intact, no obvious murmurs were noted. ABDOMEN: Soft, nontender. Positive bowel sounds no organomegaly, normal bowel sounds. EXTREMITIES: Without any cyanosis, clubbing, or edema. Pedal pulses intact, Homans sign is negative. NEUROLOGIC: Normal speech, normal tone. A & O x 3, moves all extremities, no obvious focal deficits. PSYCHIATRIC: Normal affect, normal mood. Stable. SKIN: No ulcerations or rashes, good skin turgor, no jaundice. VASCULAR: Good capillary refill, neurovascular bundle appears to be intact. LABORATORY DATA: Hematology is normal. Electrolytes: BUN 65, creatinine 8.5. ASSESSMENT AND PLAN: Hypertensive emergency, probable noncompliance, azotemia, headache, chest pain. The patient has been admitted. We are consulting Nephrology and Cardiology. Serial enzymes, serial EKGs, cardiac monitoring. DVT prophylaxis. Home meds. Full code. PROGNOSIS: Guarded. GENE LUCAS DO DR: MIGUEL ANGEL/fly JOB#: [id number] / [id number]
[2019-06-26] MEDS ORDERED: DEXTROSE 50% 25 GM / 50ML DISP.SYRIN. IV PRN (18:00)
[2019-06-26] MEDS ORDERED: NITROGLYCERIN PREMIX 250 ML IV PRN (18:00)
[2019-06-26 19:00] VITALS: BP 158/80
[2019-06-26 23:00] VITALS: BP 168/77
[2019-06-27 03:00] VITALS: BP 154/75
[2019-06-27 07:00] VITALS: BP 168/84
[2019-06-27] MEDS: CALCIUM ACETATE 667 MG CAPSULE PO SCH ×2 (08:00→13:16)
[2019-06-27] MEDS ORDERED: IV NORMAL SALINE 1000ML BAG 1,000 ML IV PRN ×2 (08:25)
[2019-06-27] MEDS ORDERED: diphenhydrAMINE 50 MG/ML VIAL IV PRN ×2 (08:30)
[2019-06-27] MEDS ORDERED: ALBUMIN HUMAN 25% 200 ML IV PRN (08:30)
[2019-06-27] MEDS ORDERED: DIALYSIS PATIENT. MC PRN ×2 (08:30)
[2019-06-27] MEDS ORDERED: 0.9 % SODIUM CHLORIDE 10 ML DISP.SYRIN. IV PRN ×2 (08:30)
[2019-06-27] MEDS ORDERED: CALCITRIOL 0.25 MCG CAPSULE. PO SCH (09:00)
[2019-06-27] MEDS ORDERED: FOLIC/VIT B COMP W-C (RENAL) TABLET. PO SCH (09:00)
[2019-06-27] MEDS: LOSARTAN POTASSIUM 50 MG TABLET. PO SCH (09:29)
[2019-06-27] MEDS: CARVEDILOL 12.5 MG TABLET. PO SCH (09:29)
[2019-06-27] MEDS: amLODIPine BESYLATE 5 MG TABLET PO SCH (09:30)
[2019-06-27] MEDS: INSULIN LISPRO 300 UNITS/3 ML VIAL. SQ SCH ×2 (09:49→12:00)
[2019-06-27 09:57] LABS: BASO % 1 % (0-3); EOS # 0.2 x10^3/uL (0.0-0.7); EOS % 3 % (0-3); HEMATOCRIT 35.4 % (36.0-47.0); HEMOGLOBIN 11.7 g/dL (12.0-15.5); LYMPH # 0.9 x10^3/uL (1.0-4.8); LYMPH % 16 % (24-48); MEAN CORPUSCULAR HEMOGLOBIN 32 pg (25-35); MEAN CORPUSCULAR HGB CONC 33 g/dL (31-37); MEAN CORPUSCULAR VOLUME 96 fL (79-100); MONO # 0.3 x10^3/uL (0.0-1.1); MONO % 5 % (0-9); NEUT # 4.3 x10^3/uL (1.8-7.7); NEUT % 75 % (31-73); PLATELET COUNT 232 x10^3/uL (140-400); RED BLOOD COUNT 3.68 x10^6/uL (3.50-5.40); RED CELL DISTRIBUTION WIDTH 17.6 % (11.5-14.5); WHITE BLOOD COUNT 5.8 x10^3/uL (4.0-11.0)
[2019-06-27 10:18] LABS: CALCIUM 9.1 mg/dL (8.5-10.1); CREATININE 11.3 mg/dL (0.6-1.0); GFR 4.1
[2019-06-27 10:19] LABS: POTASSIUM 5.9 mmol/L (3.5-5.1)
--- NOTE | 2019-06-27 10:46 | PDOC ---
Renal-Progress Notes Subjective Notes Notes FEELING BETTER, TINNITUS GONE History of Present Illness Hx of present illness MUSA IS BETTER Vitals Vitals Vital Signs Date Time Temp Pulse Resp B/P (MAP) Pulse Ox O2 Delivery O2 Flow Rate FiO2 06/27/19 09:30 80 204/86 06/27/19 08:00 Room Air 06/27/19 07:00 98.0 16 97 98.0 06/27/19 03:00 2.0 Weight Weight [ ] I.O. Intake and Output Intake and Output 06/27/19 07:00 Intake Total 1060 ml Output Total 0 ml Balance 1060 ml Intake Oral 1060 ml Output Urine Total 0 ml Labs Labs Laboratory Tests Test 06/26/19 11:55 06/26/19 17:13 06/26/19 23:40 06/27/19 09:43 Glucose (Fingerstick) 137 mg/dL (70-99) 187 mg/dL (70-99) 118 mg/dL (70-99) 249 mg/dL (70-99) Test 06/27/19 09:46 White Blood Count 5.8 x10^3/uL (4.0-11.0) Red Blood Count 3.68 x10^6/uL (3.50-5.40) Hemoglobin 11.7 g/dL (12.0-15.5) Hematocrit 35.4 % (36.0-47.0) Mean Corpuscular Volume 96 fL (79-100) Mean Corpuscular Hemoglobin 32 pg (25-35) Mean Corpuscular Hemoglobin Concent 33 g/dL (31-37) Red Cell Distribution Width 17.6 % (11.5-14.5) Platelet Count 232 x10^3/uL (140-400) Neutrophils (%) (Auto) 75 % (31-73) Lymphocytes (%) (Auto) 16 % (24-48) Monocytes (%) (Auto) 5 % (0-9) Eosinophils (%) (Auto) 3 % (0-3) Basophils (%) (Auto) 1 % (0-3) Neutrophils # (Auto) 4.3 x10^3/uL (1.8-7.7) Lymphocytes # (Auto) 0.9 x10^3/uL (1.0-4.8) Monocytes # (Auto) 0.3 x10^3/uL (0.0-1.1) Eosinophils # (Auto) 0.2 x10^3/uL (0.0-0.7) Basophils # (Auto) 0.0 x10^3/uL (0.0-0.2) Sodium Level 138 mmol/L (136-145) Potassium Level 5.9 mmol/L (3.5-5.1) Chloride Level 94 mmol/L (98-107) Carbon Dioxide Level 32 mmol/L (21-32) Anion Gap 12 (6-14) Blood Urea Nitrogen 80 mg/dL (7-20) Creatinine 11.3 mg/dL (0.6-1.0) Estimated GFR (Cockcroft-Gault) 4.1 Glucose Level 246 mg/dL (70-99) Calcium Level 9.1 mg/dL (8.5-10.1) Review of Systems Constitutional: yes: weakness, alert, oriented Ears/Nose/Throat: Yes: no symptom reported Eyes: Yes: no symptom reported Pulmonary: Yes no symptom reported Cardiovascular: Yes no symptom reported Gastrointestional: Yes: no symptom reported Genitourinary: Yes: no symptom reported Musculoskeletal: Yes: muscle stiffness Skin: Yes no symptom reported Psychiatric/Neurological: Yes: no symptom reported Endocrine: Yes: no symptom reported Hematologic/Lymphatic: Yes: no symptom reported Physical Exam General Appearance: no apparent distress Skin: warm Respiratory: decreased breath sounds Heart: S1S2 Abdomen: soft, bowel sounds present Genitourinary: bladder flat Extremities: pulses present Neurology: alert, oriented Musculoskeletal: Osteoarthritis Assessment Assessment IMP ESRD HYPERKALEMIA [id number] NON COMPLIANCE HEADACHE DUE TO HTN DM II PLAN ENC COMPLIANCE HD TODAY UF TO DW FADI WHEN NEEDED JASVIR ALVARES MD Jun 27, 2019 10:46
[2019-06-27 11:00] VITALS: BP 128/68
--- NOTE | 2019-06-27 11:17 | PDOC ---
[facility] [facility] PROGRESS NOTE Chief Complaint Chief Complaint Chest pain Hypertensive emergency Noncompliance diabetes, hypertension, end-stage renal disease, peritoneal catheter fistula in the left upper extremity, peritonitis. History of Present Illness History of Present Illness Patient seen and examined in ICU On dialysis currently Discussed with RN Chart reviewed Vitals/I&O Vitals/I&O: Vital Signs Date Time Temp Pulse Resp B/P (MAP) Pulse Ox O2 Delivery O2 Flow Rate FiO2 06/27/19 09:30 80 204/86 06/27/19 08:00 Room Air 06/27/19 07:00 98.0 16 97 98.0 06/27/19 03:00 2.0 I & O 06/26/19 06/26/19 06/27/19 15:00 23:00 07:00 Intake Total 500 ml 320 ml 240 ml Output Total 0 ml 0 ml Balance 500 ml 320 ml 240 ml Physical Exam General: Alert, Oriented X3, mild distress Heart: Regular rate, Normal S1, Normal S2 Lungs: Crackles, Other Abdomen: Normal bowel sounds Extremities: No clubbing, Normal pulses Skin: No rashes, No breakdown Labs Labs: Laboratory Tests Test 06/26/19 11:55 06/26/19 17:13 06/26/19 23:40 06/27/19 09:43 Glucose (Fingerstick) 137 mg/dL (70-99) 187 mg/dL (70-99) 118 mg/dL (70-99) 249 mg/dL (70-99) Test 06/27/19 09:46 White Blood Count 5.8 x10^3/uL (4.0-11.0) Red Blood Count 3.68 x10^6/uL (3.50-5.40) Hemoglobin 11.7 g/dL (12.0-15.5) Hematocrit 35.4 % (36.0-47.0) Mean Corpuscular Volume 96 fL (79-100) Mean Corpuscular Hemoglobin 32 pg (25-35) Mean Corpuscular Hemoglobin Concent 33 g/dL (31-37) Red Cell Distribution Width 17.6 % (11.5-14.5) Platelet Count 232 x10^3/uL (140-400) Neutrophils (%) (Auto) 75 % (31-73) Lymphocytes (%) (Auto) 16 % (24-48) Monocytes (%) (Auto) 5 % (0-9) Eosinophils (%) (Auto) 3 % (0-3) Basophils (%) (Auto) 1 % (0-3) Neutrophils # (Auto) 4.3 x10^3/uL (1.8-7.7) Lymphocytes # (Auto) 0.9 x10^3/uL (1.0-4.8) Monocytes # (Auto) 0.3 x10^3/uL (0.0-1.1) Eosinophils # (Auto) 0.2 x10^3/uL (0.0-0.7) Basophils # (Auto) 0.0 x10^3/uL (0.0-0.2) Sodium Level 138 mmol/L (136-145) Potassium Level 5.9 mmol/L (3.5-5.1) Chloride Level 94 mmol/L (98-107) Carbon Dioxide Level 32 mmol/L (21-32) Anion Gap 12 (6-14) Blood Urea Nitrogen 80 mg/dL (7-20) Creatinine 11.3 mg/dL (0.6-1.0) Estimated GFR (Cockcroft-Gault) 4.1 Glucose Level 246 mg/dL (70-99) Calcium Level 9.1 mg/dL (8.5-10.1) Review of Systems Review of Systems: Complains of knee pain Complains of weakness Complains of tinnitus Assessment and Plan Assessmemt and Plan Problems Medical Problems: (1) Headache Status: Acute (2) Hypertensive crisis Status: Acute (3) Tinnitus of right ear Status: Acute Chest pain Hypertensive emergency Noncompliance diabetes, hypertension, end-stage renal disease, peritoneal catheter fistula in the left upper extremity, peritonitis. Plan ICU monitoring Thursday dialysis Home meds Cardiology and nephrology following Consult physiatry PT OT DVT prophylaxis Full code Long-term prognosis guarded Total time 32 minutes Comment Review of Relevant I have reviewed the following items (where applicable) has been applied. Medications: Current Medications Medications (Trade) Dose Ordered Sig/Aruna Route PRN Reason Start Time Stop Time Status Last Admin Dose Admin Nitroglycerin/ Dextrose 250 ml @ 1.5 mls/hr CONT PRN IV SEE I/O RECORD 06/26/19 18:00 06/26/19 18:01 Calcium Acetate (Phoslo) 667 mg TIDWMEALS PO 06/27/19 08:00 06/27/19 08:00 Vitamin B Complex/ Vitamin C (Elise-Monica) 1 tab DAILY PO 06/27/19 09:00 06/27/19 09:00 Calcitriol (Rocaltrol) 0.25 mcg DAILY PO 06/27/19 09:00 06/27/19 09:30 Insulin Human Lispro (HumaLOG) 0-5 UNITS TIDWMEALS SQ 06/27/19 08:00 06/27/19 09:49 GENE LUCAS III DO Jun 27, 2019 11:17
[2019-06-27] MEDS ORDERED: methylPREDNISolone ACETATE 40 MG/ML VIAL. ONE ×2 (12:45)
[2019-06-27] MEDS ORDERED: BUPIVACAINE MPF 0.25% 10 ML VIAL. ONE (12:45)
[2019-06-27] MEDS ORDERED: BUPIVACAINE MPF 0.25% 10 ML VIAL. IJ ONE (12:45)
[2019-06-27] MEDS ORDERED: methylPREDNISolone ACETATE 40 MG/ML VIAL. IM ONE ×2 (12:45)
[2019-06-27] MEDS ORDERED: DICLOFENAC SODIUM 1% TOPICAL GEL 100GM TUBE. TP SCH (14:00)
[2019-06-27 15:00] VITALS: BP 168/76
[2019-06-27] MEDS ORDERED: hydrALAZINE 20 MG/ML VIAL. IVP PRN (15:15)
[2019-06-27 15:24] VITALS: BP 201/100
[2019-06-27] MEDS ORDERED: LISINOPRIL 20 MG TABLET PO SCH (16:00)
--- NOTE | 2019-06-27 16:00 | PDOC ---
PROGRESS NOTES Subjective Subjective Patient seen and examined The patient is more comfortable today. Objective Objective Vital Signs Date Time Temp Pulse Resp B/P (MAP) Pulse Ox O2 Delivery O2 Flow Rate FiO2 06/27/19 15:24 78 201/100 06/27/19 15:00 98.2 16 97 Room Air 98.2 06/27/19 03:00 2.0 Intake and Output 06/27/19 07:00 Intake Total 1060 ml Output Total 0 ml Balance 1060 ml Intake Oral 1060 ml Output Urine Total 0 ml Physical Exam Abdomen: Normal bowel sounds Heart: Regular rate General: mild distress Lungs: Other (slightly decreased breath sounds) Assessment Assessment Problems Medical Problems: (1) Headache Status: Acute (2) Hypertensive crisis Status: Acute (3) Tinnitus of right ear Status: Acute 1. Accelerated hypertension. Patient's blood pressure has improved but is still elevated. We'll titrate up medications. Echocardiogram pending. 2. End-stage renal disease. Hemodialysis at . Being followed by the renal service. 3. Headache and right sided tinnitus. Improved with better blood pressure control. No acute changes on CT scan of the head. 4. Diabetes mellitus. As per the primary service. Comment Review of Relevant I have reviewed the following items (where applicable) has been applied. Labs Laboratory Tests Test 06/26/19 01:24 06/26/19 03:00 06/26/19 11:55 06/26/19 17:13 White Blood Count 6.1 x10^3/uL (4.0-11.0) Red Blood Count 3.79 x10^6/uL (3.50-5.40) Hemoglobin 12.0 g/dL (12.0-15.5) Hematocrit 36.7 % (36.0-47.0) Mean Corpuscular Volume 97 fL (79-100) Mean Corpuscular Hemoglobin 32 pg (25-35) Mean Corpuscular Hemoglobin Concent 33 g/dL (31-37) Red Cell Distribution Width 18.2 % (11.5-14.5) Platelet Count 234 x10^3/uL (140-400) Neutrophils (%) (Auto) 67 % (31-73) Lymphocytes (%) (Auto) 20 % (24-48) Monocytes (%) (Auto) 8 % (0-9) Eosinophils (%) (Auto) 4 % (0-3) Basophils (%) (Auto) 1 % (0-3) Neutrophils # (Auto) 4.1 x10^3/uL (1.8-7.7) Lymphocytes # (Auto) 1.2 x10^3/uL (1.0-4.8) Monocytes # (Auto) 0.5 x10^3/uL (0.0-1.1) Eosinophils # (Auto) 0.2 x10^3/uL (0.0-0.7) Basophils # (Auto) 0.0 x10^3/uL (0.0-0.2) Sodium Level 144 mmol/L (136-145) Potassium Level 4.3 mmol/L (3.5-5.1) Chloride Level 97 mmol/L (98-107) Carbon Dioxide Level 38 mmol/L (21-32) Anion Gap 9 (6-14) Blood Urea Nitrogen 65 mg/dL (7-20) Creatinine 8.5 mg/dL (0.6-1.0) Estimated GFR (Cockcroft-Gault) 5.7 BUN/Creatinine Ratio 8 (6-20) Glucose Level 149 mg/dL (70-99) Calcium Level 9.4 mg/dL (8.5-10.1) Magnesium Level 2.6 mg/dL (1.8-2.4) Total Bilirubin 0.3 mg/dL (0.2-1.0) Aspartate Amino Transf (AST/SGOT) 16 U/L (15-37) Alanine Aminotransferase (ALT/SGPT) 15 U/L (14-59) Alkaline Phosphatase 102 U/L (46-116) Total Protein 7.4 g/dL (6.4-8.2) Albumin 3.4 g/dL (3.4-5.0) Albumin/Globulin Ratio 0.9 (1.0-1.7) Glucose (Fingerstick) 137 mg/dL (70-99) 187 mg/dL (70-99) Test 06/26/19 23:40 06/27/19 09:43 06/27/19 09:46 06/27/19 12:15 Glucose (Fingerstick) 118 mg/dL (70-99) 249 mg/dL (70-99) 146 mg/dL (70-99) White Blood Count 5.8 x10^3/uL (4.0-11.0) Red Blood Count 3.68 x10^6/uL (3.50-5.40) Hemoglobin 11.7 g/dL (12.0-15.5) Hematocrit 35.4 % (36.0-47.0) Mean Corpuscular Volume 96 fL (79-100) Mean Corpuscular Hemoglobin 32 pg (25-35) Mean Corpuscular Hemoglobin Concent 33 g/dL (31-37) Red Cell Distribution Width 17.6 % (11.5-14.5) Platelet Count 232 x10^3/uL (140-400) Neutrophils (%) (Auto) 75 % (31-73) Lymphocytes (%) (Auto) 16 % (24-48) Monocytes (%) (Auto) 5 % (0-9) Eosinophils (%) (Auto) 3 % (0-3) Basophils (%) (Auto) 1 % (0-3) Neutrophils # (Auto) 4.3 x10^3/uL (1.8-7.7) Lymphocytes # (Auto) 0.9 x10^3/uL (1.0-4.8) Monocytes # (Auto) 0.3 x10^3/uL (0.0-1.1) Eosinophils # (Auto) 0.2 x10^3/uL (0.0-0.7) Basophils # (Auto) 0.0 x10^3/uL (0.0-0.2) Sodium Level 138 mmol/L (136-145) Potassium Level 5.9 mmol/L (3.5-5.1) Chloride Level 94 mmol/L (98-107) Carbon Dioxide Level 32 mmol/L (21-32) Anion Gap 12 (6-14) Blood Urea Nitrogen 80 mg/dL (7-20) Creatinine 11.3 mg/dL (0.6-1.0) Estimated GFR (Cockcroft-Gault) 4.1 Glucose Level 246 mg/dL (70-99) Calcium Level 9.1 mg/dL (8.5-10.1) Laboratory Tests Test 06/26/19 17:13 06/26/19 23:40 06/27/19 09:43 06/27/19 09:46 Glucose (Fingerstick) 187 mg/dL (70-99) 118 mg/dL (70-99) 249 mg/dL (70-99) White Blood Count 5.8 x10^3/uL (4.0-11.0) Red Blood Count 3.68 x10^6/uL (3.50-5.40) Hemoglobin 11.7 g/dL (12.0-15.5) Hematocrit 35.4 % (36.0-47.0) Mean Corpuscular Volume 96 fL (79-100) Mean Corpuscular Hemoglobin 32 pg (25-35) Mean Corpuscular Hemoglobin Concent 33 g/dL (31-37) Red Cell Distribution Width 17.6 % (11.5-14.5) Platelet Count 232 x10^3/uL (140-400) Neutrophils (%) (Auto) 75 % (31-73) Lymphocytes (%) (Auto) 16 % (24-48) Monocytes (%) (Auto) 5 % (0-9) Eosinophils (%) (Auto) 3 % (0-3) Basophils (%) (Auto) 1 % (0-3) Neutrophils # (Auto) 4.3 x10^3/uL (1.8-7.7) Lymphocytes # (Auto) 0.9 x10^3/uL (1.0-4.8) Monocytes # (Auto) 0.3 x10^3/uL (0.0-1.1) Eosinophils # (Auto) 0.2 x10^3/uL (0.0-0.7) Basophils # (Auto) 0.0 x10^3/uL (0.0-0.2) Sodium Level 138 mmol/L (136-145) Potassium Level 5.9 mmol/L (3.5-5.1) Chloride Level 94 mmol/L (98-107) Carbon Dioxide Level 32 mmol/L (21-32) Anion Gap 12 (6-14) Blood Urea Nitrogen 80 mg/dL (7-20) Creatinine 11.3 mg/dL (0.6-1.0) Estimated GFR (Cockcroft-Gault) 4.1 Glucose Level 246 mg/dL (70-99) Calcium Level 9.1 mg/dL (8.5-10.1) Test 06/27/19 12:15 Glucose (Fingerstick) 146 mg/dL (70-99) Medications Current Medications Hydralazine HCl (Apresoline Inj) 10 mg 1X ONCE IVP Last administered on 06/26/19at 04:13; Start 06/26/19 at 04:00; Stop 06/26/19 at 04:01; Status DC Fentanyl Citrate (Fentanyl 2ml Vial) 50 mcg 1X ONCE IVP Last administered on 06/26/19at 04:13; Start 06/26/19 at 04:00; Stop 06/26/19 at 04:01; Status DC Ondansetron HCl (Zofran) 4 mg 1X ONCE IV Last administered on 06/26/19at 04:13; Start 06/26/19 at 04:00; Stop 06/26/19 at 04:01; Status DC Fentanyl Citrate (Fentanyl 2ml Vial) 50 mcg 1X ONCE IVP ; Start 06/26/19 at 05:00; Stop 06/26/19 at 05:01; Status DC Hydralazine HCl (Apresoline Inj) 10 mg 1X ONCE IVP Last administered on 06/26/19at 05:10; Start 06/26/19 at 05:00; Stop 06/26/19 at 05:01; Status DC Ondansetron HCl (Zofran) 4 mg PRN Q8HRS PRN IV NAUSEA/VOMITING 1ST CHOICE; Start 06/26/19 at 04:45; Stop 06/27/19 at 04:44; Status DC Fentanyl Citrate (Fentanyl 2ml Vial) 50 mcg PRN Q1HR PRN IV SEVERE PAIN 7-10 Last administered on 06/26/19at 19:22; Start 06/26/19 at 04:45; Stop 06/27/19 at 04:44; Status DC Hydralazine HCl (Apresoline Inj) 10 mg 1X ONCE IVP Last administered on 06/26/19at 09:32; Start 06/26/19 at 09:30; Stop 06/26/19 at 09:31; Status DC Carvedilol (Coreg) 25 mg BIDWMEALS PO Last administered on 06/27/19at 09:29; Start 06/26/19 at 10:00 Amlodipine Besylate (Norvasc) 5 mg BID PO Last administered on 06/27/19at 09:30; Start 06/26/19 at 10:00 Losartan Potassium (Cozaar) 100 mg DAILY PO Last administered on 06/27/19at 09:29; Start 06/26/19 at 10:00 Nitroglycerin/ Dextrose 250 ml @ 1.5 mls/hr CONT PRN IV SEE I/O RECORD Last administered on 06/26/19at 18:01; Start 06/26/19 at 18:00 Calcium Acetate (Phoslo) 667 mg TIDWMEALS PO Last administered on 06/27/19at 13:16; Start 06/27/19 at 08:00 Vitamin B Complex/ Vitamin C (Elise-Monica) 1 tab DAILY PO Last administered on 06/27/19at 09:00; Start 06/27/19 at 09:00 Calcitriol (Rocaltrol) 0.25 mcg DAILY PO Last administered on 06/27/19at 09:30; Start 06/27/19 at 09:00 Insulin Human Lispro (HumaLOG) 0-5 UNITS TIDWMEALS SQ Last administered on 07/05at 09:49; Start 06/27/19 at 08:00 Dextrose (Dextrose 50%-Water Syringe) 12.5 gm PRN Q15MIN PRN IV SEE COMMENTS; Start 06/26/19 at 18:00 Sodium Chloride 1,000 ml @ 1,000 mls/hr Q1H PRN IV hypotension; Start 06/27/19 at 08:25; Stop 06/27/19 at 14:24; Status DC Albumin Human 200 ml @ 200 mls/hr 1X PRN PRN IV Hypotension; Start 06/27/19 at 08:30; Stop 06/27/19 at 14:29; Status DC Diphenhydramine HCl (Benadryl) 25 mg 1X PRN PRN IV ITCHING; Start 06/27/19 at 08:30; Stop 06/28/19 at 08:29 Diphenhydramine HCl (Benadryl) 25 mg 1X PRN PRN IV ITCHING; Start 06/27/19 at 08:30; Stop 06/28/19 at 08:29 Sodium Chloride (Normal Saline Flush) 10 ml 1X PRN PRN IV AP catheter pack; Start 06/27/19 at 08:30; Stop 06/28/19 at 08:29 Sodium Chloride (Normal Saline Flush) 10 ml 1X PRN PRN IV FEEDER LO[employer]ER catheter pack; Start 06/27/19 at 08:30; Stop 06/28/19 at 08:29 Sodium Chloride 1,000 ml @ 400 mls/hr Q2H30M PRN IV PATENCY; Start 06/27/19 at 08:25; Stop 06/27/19 at 20:24 Info (PHARMACY MONITORING -- do not chart) 1 each PRN DAILY PRN MC SEE COMMENTS; Start 06/27/19 at 08:30; Status UNV Info (PHARMACY MONITORING -- do not chart) 1 each PRN DAILY PRN MC SEE COMMENTS; Start 06/27/19 at 08:30 Methylprednisolone Acetate (DEPO-Medrol 40MG VIAL) 40 mg 1X ONCE IM ; Start 06/27/19 at 12:45; Stop 06/27/19 at 12:48; Status DC Methylprednisolone Acetate (DEPO-Medrol 40MG VIAL) 40 mg 1X ONCE IM ; Start 06/27/19 at 12:45; Stop 06/27/19 at 12:48; Status DC Bupivacaine HCl (Sensorcaine-Mpf 0.25%) 10 ml 1X ONCE IJ ; Start 06/27/19 at 12:45; Stop 06/27/19 at 12:48; Status DC Diclofenac Sodium (Voltaren) 1 paulino BID TP ; Start 06/27/19 at 14:00 Lisinopril (Prinivil) 20 mg DAILY PO Last administered on 06/27/19at 15:23; Start 06/27/19 at 16:00 Hydralazine HCl (Apresoline Inj) 10 mg PRN Q6HRS PRN IVP ELEVATED BP, SEE COMMENTS Last administered on 06/27/19at 15:24; Start 06/27/19 at 15:15 Active Scripts Active Reported Humalog (Insulin Lispro) 100 Unit/1 Ml Vial 100 Unit SQ TIDACHC Miralax (Polyethylene Glycol 3350) 17 Gm Powd.pack 1 Packet PO DAILY Sennosides 8.6 Mg Tablet 8.6 Mg PO DAILYWSUP Metoclopramide Hcl 5 Mg Tablet 5 Mg PO TID Losartan Potassium 100 Mg Tablet 1 Tab PO DAILY Elise-Monica Tablet (Folic Acid/Vitamin B Comp W-C) 0.8 Mg Tablet 0.8 Mg PO DAILY Procrit (Epoetin Shan) 20,000 Unit/2 Ml Vial 16,000 Unit IJ WEEKLY Carvedilol 25 Mg Tablet 1 Tab PO BID Phoslo (Calcium Acetate) 667 Mg Capsule 2 Cap PO TIDWMEALS Calcitriol 0.25 Mcg Capsule 1 Cap PO DAILY Amlodipine Besylate 5 Mg Tablet 1 Tab PO BID Vitals/I & O Vital Sign - Last 24 Hours 06/26/19 06/26/19 06/26/19 06/26/19 16:14 19:00 19:22 20:00 Temp 98.0 98.0 Pulse 75 70 Resp 16 16 18 B/P (MAP) 191/80 158/80 (106) Pulse Ox 97 97 92 O2 Delivery Room Air Room Air Room Air 06/26/19 06/26/19 06/26/19 06/27/19 20:00 20:55 23:00 03:00 Temp 98.2 98.2 98.2 98.2 Pulse 75 73 78 Resp 16 16 B/P (MAP) 188/86 168/77 (107) 154/75 (101) Pulse Ox 96 97 O2 Delivery Nasal Cannula Room Air Nasal Cannula O2 Flow Rate 1.0 2.0 06/27/19 06/27/19 06/27/19 06/27/19 07:00 08:00 09:29 09:29 Temp 98.0 98.0 Pulse 75 74 75 Resp 16 B/P (MAP) 168/84 (112) 204/86 204/86 Pulse Ox 97 O2 Delivery Room Air Room Air 06/27/19 06/27/19 06/27/19 06/27/19 09:30 11:00 15:00 15:23 Temp 98.2 98.2 98.2 98.2 Pulse 80 74 74 78 Resp 16 16 B/P (MAP) 204/86 128/68 (88) 168/76 (106) 201/100 Pulse Ox 97 97 O2 Delivery Room Air Room Air 06/27/19 15:24 Pulse 78 B/P (MAP) 201/100 Intake and Output 06/26/19 06/26/19 06/27/19 15:00 23:00 07:00 Intake Total 500 ml 320 ml 240 ml Output Total 0 ml 0 ml Balance 500 ml 320 ml 240 ml CJ ABDI MD Jun 27, 2019 15:59
--- NOTE | 2019-06-27 16:10 | RAD ---
KNEE STANDING BILAT AP History: Painful DJD of both knees Comparison: August 28, 2018 right knee radiographs Findings: Single standing AP views of bilateral knees are submitted. There is moderate narrowing of the medial compartment joint spaces of the bilateral knees, also osteophyte formation. No acute fracture is identified. Impression: 1. There is moderate osteoarthritic change of the bilateral kidneys involving the medial compartments. Electronically signed by: Ranjit Ruth MD (06/27/2019 4:07 PM) [id number]
--- NOTE | 2019-06-27 16:20 | NUR ---
SS following for discharge planning. SS reviewed pt chart. Pt is from home with spouse and is currently on room air. Discharge orders on the chart for home with self care.
--- NOTE | 2019-06-27 16:48 | CONS ---
DATE OF CONSULTATION: 06/27/2019 ATTENDING PHYSICIAN: Dr. Lundberg. The patient was seen at the request of Dr. Lundberg for rehab evaluation. HISTORY OF PRESENT ILLNESS: This is a 68-year-old female admitted with headache and chest pain through the Emergency Room on 06/26/2019, she was found with hypertensive crisis with blood pressures in 200s. The patient apparently was on hemodialysis for about 5 years. The patient with known diabetes mellitus, hypertension, end-stage renal disease, had a peritoneal catheter fistula in her left upper extremity, peritonitis. The patient had a family history of diabetes mellitus. She lives with her , had stairs to manage. She complains of pain in her knees with knees giving out. PHYSICAL EXAMINATION: On physical examination today revealed a middle-aged female. She is alert, oriented to time, place, person and circumstance and follows commands appropriately, moves all 4 extremities voluntarily where she had 4+/5 grade muscle strength with relatively increased weakness, in hand intrinsic muscles where she had muscle atrophy involving hand intrinsic muscles supplied by the ulnar nerve. She had negative Tinel sign over median nerve at the wrist and over ulnar nerve at the wrist and elbow and negative Phalen sign at both wrists. She had decreased touch and pinprick sensation over a sock and glove distribution. She had crepitus on range of motion of both knee joints with knee joint effusion and tenderness to palpation over the medial and lateral knee joint line and she had absent knee and ankle jerks. I have not tested her mobility skills at present time as she is receiving hemodialysis. ASSESSMENT: A middle-aged female with painful degenerative joint disease of both knees with giving out sensation to rule out associated torn meniscus, diabetes mellitus with peripheral neuropathy, hypertension, admitted with hypertensive crisis, end-stage renal disease, on hemodialysis. RECOMMENDATIONS: At her request, I have injected her both knees under aseptic skin technique after skin preparation using alcohol swab with 2 mL of Depo-Medrol 40 mg per 1 mL solution mixed with 4 mL of 0.25% Marcaine solution and she tolerated the procedures satisfactorily without any side effects. To ask physical therapy and occupational therapy to get her up. I have reviewed with her home program of isometric strengthening exercise to her lower extremity muscle groups and advised to use a roller walker while up walking. To consider MRI scan of her knees on an outpatient basis, if the knee giving out sensation persists. To also consider knee orthosis if the pain persists. Dr. Lundberg, I appreciate asking me to participate in the care of this interesting patient. I will be glad to see her with you for followup on as needed basis. GWENDOLYN YANG MD DR: LEONEL/fly JOB#: [id number] / [id number]
--- NOTE | 2019-06-28 18:20 | DS ---
DATE OF DISCHARGE: 06/27/2019 ADMISSION DIAGNOSIS: Hypertensive emergency. DISCHARGE DIAGNOSES: Resolving hypertensive emergency; end-stage renal disease, on dialysis; headache and tinnitus. HOSPITAL COURSE: The patient is a pleasant 68-year-old female, who presented with hypertensive crisis. She was admitted. We took her for emergent dialysis. We consulted Nephrology and Dr. Matthews. Yesterday, I saw and examined her. She was doing well. We discharged to home with close outpatient followup. DISPOSITION: Home. ACTIVITY: As tolerated. DIET: Low sodium. MEDICATIONS: Please see MRAD. TOTAL TIME: 32 minutes. NIAL Negrita LUCAS DO DR: MIGUEL ANGEL/fly JOB#: [id number] / [id number]
== END 2019-06-27 16:40 | disposition home or self-care (01) | DRG 304 ==
LOC: ER 01:04 → 1 WEST ICU 04:53
PROVIDERS: ADMIT Family Medicine; ATTEND Family Medicine
PROC: 5A1D70Z Performance of Urinary Filtration, Intermittent, Less than 6 Hours Per Day (ICD-10-PCS; principal; 2019-06-27)
DX: I16.1 Hypertensive emergency (principal); N18.6 End stage renal disease; E11.22 Type 2 diabetes mellitus with diabetic chronic kidney disease; F41.9 Anxiety disorder, unspecified; I12.0 Hypertensive chronic kidney disease with stage 5 chronic kidney disease or end stage renal disease; E78.5 Hyperlipidemia, unspecified; E87.5 Hyperkalemia; M19.90 Unspecified osteoarthritis, unspecified site; Z99.2 Dependence on renal dialysis; H93.11 Tinnitus, right ear; M17.0 Bilateral primary osteoarthritis of knee; Z82.49 Family history of ischemic heart disease and other diseases of the circulatory system; Z83.3 Family history of diabetes mellitus; Z90.710 Acquired absence of both cervix and uterus; Z91.19 Patient's noncompliance with other medical treatment and regimen
CPT/HCPCS: 36415; 70450; 71045; 73565; 80048; 80053; 82962; 83735; 85025; 93005; 96374; 96375; 96376; J0360; J1030; J1815; J2405; J3010; J3490; 99285-25; G0378

== ENCOUNTER 2019-09-14 07:05 | Inpatient (IN) | payer MEDICARE ==
[~2019-09-14] VITALS: Ht 157.5 cm; Wt 66.3 kg
[~2019-09-14 07:05] MED LIST changes: +ANAS1TAB PO; +ASPI-630 PO; +CARV3.1210 PO; +FERR210T PO; +INSU100I27 SQ; +INSU100V6 SQ
--- NOTE | 2019-09-14 07:28 | PHYS DOC ---
Past Medical History Past Medical History: Diabetes-Type II, Hypertension, Renal Failure, Other Additional Past Medical Histor: UNKNOWN HX Past Surgical History: Hysterectomy, Other Additional Past Surgical Histo: PERITONEAL CATHERER REMOVED, FISTULA LUE, ABD SURG FOR PERIOTONITIS Alcohol Use: None Drug Use: None Adult General Chief Complaint Chief Complaint: SHORTNESS OF BREATH HPI HPI Patient is a 69-year-old female, who presents to the emergency department for evaluation. She states that she has had increasing shortness of breath, which she attributes to some discomfort in her throat, as well as increased salivary production, with spitting, over the past few days. She has a history of ESRD, but missed her dialysis on Thursday, because she states that she brought her to the hospital. Her next dialysis session is scheduled for this evening. She denies any pain, has not had any significant cough, denies chest pain, abdominal pain, nausea, vomiting, fevers, or chills. She has had some orthopnea. There are no alleviating or exacerbating factors to her symptoms. She states that she has had sensation of neck swelling in the past. Review of Systems Review of Systems Constitutional: Denies fever or chills [] Eyes: Denies change in visual acuity, redness, or eye pain [] HENT: Denies nasal congestion or sore throat [] Respiratory: Denies cough. Reports shortness of breath [] Cardiovascular: No additional information not addressed in HPI [] GI: Denies abdominal pain, nausea, vomiting, bloody stools or diarrhea [] : Denies dysuria or hematuria [] Musculoskeletal: Denies back pain or joint pain [] Integument: Denies rash or skin lesions [] Neurologic: Denies headache, focal weakness or sensory changes [] Endocrine: Denies polyuria or polydipsia [] All other systems were reviewed and found to be within normal limits, except as documented in this note. Current Medications Current Medications Current Medications Medications (Trade) Dose Ordered Sig/Aruna Start Time Stop Time Status Last Admin Dose Admin Dexamethasone Sodium Phosphate (Decadron) 8 mg 1X ONCE 09/14/19 10:15 09/14/19 10:16 Info (CONTRAST GIVEN -- Rx MONITORING) 1 each PRN DAILY PRN 09/14/19 08:30 09/16/19 08:29 Iohexol (Omnipaque 300 Mg/ml) 70 ml 1X ONCE 09/14/19 08:30 09/14/19 08:31 DC Allergies Allergies Allergies Coded Allergies Type Severity Reaction Last Updated Verified No Known Drug Allergies 01/31/15 No Physical Exam Physical Exam PHYSICAL EXAM: CONSTITUTIONAL: Well developed, well nourished HEAD: normocephalic, atraumatic EENT: PERRL, EOMI. Conjunctivae normal color, sclerae non-icteric; moist mucous membranes. The oropharynx is unremarkable. The soft tissues of the neck, and floor of the mouth, are unremarkable. There is no stridor. There is a mildly hoarse, but not muffled voice. NECK: Supple, non-tender; no meningismus. LUNGS: Lungs CTA, breathing even and unlabored. Normal air movement. There are no wheezes, rales, or rhonchi. HEART: Regular rate and rhythm, no murmur CHEST: No deformity; non-tender ABDOMEN: The abdomen is soft, and non-tender, no masses or bruits. EXTREM: Normal ROM; no deformity, no calf tenderness. Normal pulses palpable in all extremities. There is no pedal edema. There is an AV fistula in the left upper extremity. SKIN: No rash; no diaphoresis NEURO: Alert; normal speech and cognition; CN's grossly intact; strength grossly intact without focal deficit. BACK: No CVA TTP. Current Patient Data Vital Signs Vital Signs Date Time Temp Pulse Resp B/P (MAP) Pulse Ox O2 Delivery O2 Flow Rate FiO2 09/14/19 07:53 82 18 241/105 (150) 95 Room Air 09/14/19 07:33 98.0 98.0 Lab Values Laboratory Tests Test 09/14/19 07:53 White Blood Count 10.4 x10^3/uL (4.0-11.0) Red Blood Count 3.20 x10^6/uL (3.50-5.40) L Hemoglobin 10.0 g/dL (12.0-15.5) L Hematocrit 30.0 % (36.0-47.0) L Mean Corpuscular Volume 94 fL (79-100) Mean Corpuscular Hemoglobin 31 pg (25-35) Mean Corpuscular Hemoglobin Concent 33 g/dL (31-37) Red Cell Distribution Width 15.1 % (11.5-14.5) H Platelet Count 294 x10^3/uL (140-400) Neutrophils (%) (Auto) 83 % (31-73) H Lymphocytes (%) (Auto) 10 % (24-48) L Monocytes (%) (Auto) 4 % (0-9) Eosinophils (%) (Auto) 1 % (0-3) Basophils (%) (Auto) 1 % (0-3) Neutrophils # (Auto) 8.7 x10^3/uL (1.8-7.7) H Lymphocytes # (Auto) 1.1 x10^3/uL (1.0-4.8) Monocytes # (Auto) 0.4 x10^3/uL (0.0-1.1) Eosinophils # (Auto) 0.1 x10^3/uL (0.0-0.7) Basophils # (Auto) 0.1 x10^3/uL (0.0-0.2) Prothrombin Time 13.2 SEC (11.7-14.0) Prothrombin Time INR 1.0 (0.8-1.1) Sodium Level 141 mmol/L (136-145) Potassium Level 5.8 mmol/L (3.5-5.1) H Chloride Level 99 mmol/L (98-107) Carbon Dioxide Level 25 mmol/L (21-32) Anion Gap 17 (6-14) H Blood Urea Nitrogen 120 mg/dL (7-20) H Creatinine 17.4 mg/dL (0.6-1.0) H Estimated GFR (Cockcroft-Gault) 2.5 BUN/Creatinine Ratio 7 (6-20) Glucose Level 143 mg/dL (70-99) H Calcium Level 9.7 mg/dL (8.5-10.1) Total Bilirubin 0.4 mg/dL (0.2-1.0) Aspartate Amino Transferase (AST) 12 U/L (15-37) L Alanine Aminotransferase (ALT) < 6 U/L (14-59) L Alkaline Phosphatase 116 U/L (46-116) Troponin I Quantitative 0.044 ng/mL (0.000-0.055) Total Protein 7.4 g/dL (6.4-8.2) Albumin 3.5 g/dL (3.4-5.0) Albumin/Globulin Ratio 0.9 (1.0-1.7) L Laboratory Tests 09/14/19 07:53 Laboratory Tests 09/14/19 07:53 EKG EKG [] Normal sinus rhythm at a rate of 79 beats for minute, normal axis, normal intervals, prominent anterior/peaked T waves, without acute ischemic changes. Radiology/Procedures Radiology/Procedures PROCEDURE: CHEST PA & LATERAL Single view of the chest. 09/14/2019 7:23 AM Indication: Throat pain Comparison: Chest radiograph July 18, 2019 Findings: Patchy infiltrate appears to be present in the right middle lobe and to a lesser degree upper lobe. Rounded posterior opacity, best seen on lateral view may represent fluid within the fissure. Findings raise concern for pneumonia with trace parapneumonic effusion. Recommend radiographic follow-up to ensure complete resolution. No pneumothorax is seen. Heart size is top normal. Patient's head is rotated. No acute osseous changes are seen. Impression: Patchy infiltrate in the right upper lobe and right upper lobe. Rounded opacity possibly relating to small amount of fluid within the fissure. Radiographic follow-up to resolution recommended. If opacities fail to resolve, short-term follow-up CT chest recommended to exclude other processes such as neoplasm. [] PROCEDURE: CT SOFT TISSUE NECK W/CONTRAST CT SOFT TISSUE NECK W/CONTRAST DATE: 09/14/2019 7:32 AM INDICATION: Neck pain, dyspnea, secretions TECHNIQUE: Axial computed tomography of the neck with intravenous contrast according to the standard neck protocol. 70 cc of Omnipaque 300 was administered intravenously. One or more of the following dose reduction techniques were utilized: Automated exposure control (AEC), Adjustment of mA and/or kV according to patient size, Use of iterative reconstruction technique such as ASiR, CT scan done according to ALARA and image gently/image wisely COMPARISON: None. FINDINGS: Mucosal thickening and narrowing of the larynx. No fluid collection. No retropharyngeal collection. Mild enlargement of the adenoids and palatine tonsils. Scattered subcentimeter lymph nodes are seen in the neck. None are pathologically enlarged or abnormally enhancing. The parotid, submandibular, and thyroid glands are normal. The muscles of the neck are normal. Vessels of the neck demonstrate normal course, caliber, and enhancement. The visualized posterior fossa and brain is unremarkable. The visualized orbits and paranasal sinuses are normal. Mild multilevel degenerative disc desiccation. Multilevel spinal canal stenosis secondary to disc protrusions and marginal osteophytes. Multilevel neural foraminal narrowing secondary to uncovertebral and facet arthrosis. The visualized lung apices are clear. IMPRESSION: 1. Mucosal thickening and narrowing of the larynx, which may reflect laryngitis. 2. Mild enlargement of the adenoids and palatine tonsils, likely reactive. Course & Med Decision Making Course & Med Decision Making Pertinent Labs and Imaging studies reviewed. (See chart for details) [] 10:05 AM:The patient's condition remains stable. I spoke with the hospitalist, who accepted the patient to the hospital for further evaluation and treatment. Nephrology was consult as well to arrange dialysis. Dragon Disclaimer Dragon Disclaimer This electronic medical record was generated, in whole or in part, using a voice recognition dictation system. Departure Departure Impression: Primary Impression: Laryngitis Additional Impressions: Dyspnea Missed dialysis ESRD (end stage renal disease) Disposition: 09 ADMITTED INPATIENT Admitting Physician: STACEY Condition: STABLE Referrals: UNKNOWN PCP NAME (PCP) Problem Qualifiers JONATHAN DESOUZA MD Sep 14, 2019 07:28
[2019-09-14 08:02] LABS: BASO # 0.1 x10^3/uL (0.0-0.2); BASO % 1 % (0-3); EOS # 0.1 x10^3/uL (0.0-0.7); EOS % 1 % (0-3); LYMPH # 1.1 x10^3/uL (1.0-4.8); LYMPH % 10 % (24-48); MEAN CORPUSCULAR HEMOGLOBIN 31 pg (25-35); MEAN CORPUSCULAR HGB CONC 33 g/dL (31-37); MEAN CORPUSCULAR VOLUME 94 fL (79-100); MONO # 0.4 x10^3/uL (0.0-1.1); MONO % 4 % (0-9); NEUT # 8.7 x10^3/uL (1.8-7.7); NEUT % 83 % (31-73); PLATELET COUNT 294 x10^3/uL (140-400); RED CELL DISTRIBUTION WIDTH 15.1 % (11.5-14.5); WHITE BLOOD COUNT 10.4 x10^3/uL (4.0-11.0)
[2019-09-14 08:12] LABS: ANION GAP 17 (6-14); BLOOD UREA NITROGEN 120 mg/dL (7-20); BUN/CREATININE RATIO 7 (6-20); CALCIUM 9.7 mg/dL (8.5-10.1); CARBON DIOXIDE 25 mmol/L (21-32); CHLORIDE 99 mmol/L (98-107); CREATININE 17.4 mg/dL (0.6-1.0); GFR 2.5; GLUCOSE 143 mg/dL (70-99); POTASSIUM 5.8 mmol/L (3.5-5.1); SODIUM 141 mmol/L (136-145)
[2019-09-14 08:14] LABS: PROTHROMBIN TIME PATIENT 13.2 SEC (11.7-14.0)
[2019-09-14 08:17] LABS: ALBUMIN 3.5 g/dL (3.4-5.0); ALBUMIN/GLOBULIN RATIO 0.9 (1.0-1.7); ALK PHOS 116 U/L (46-116); AST (SGOT) 12 U/L (15-37); TOTAL BILIRUBIN 0.4 mg/dL (0.2-1.0); TOTAL PROTEIN 7.4 g/dL (6.4-8.2)
[2019-09-14 08:18] LABS: ALT (SGPT) < 6 U/L (14-59)
[2019-09-14] MEDS ORDERED: IOHEXOL 300 MG/ML 100ML VIAL. IV ONE (08:30)
[2019-09-14] MEDS ORDERED: CONTRAST GIVEN. MC PRN (08:30)
--- NOTE | 2019-09-14 08:51 | RAD ---
Single view of the chest. 09/14/2019 7:23 AM Indication: Throat pain Comparison: Chest radiograph July 18, 2019 Findings: Patchy infiltrate appears to be present in the right middle lobe and to a lesser degree upper lobe. Rounded posterior opacity, best seen on lateral view may represent fluid within the fissure. Findings raise concern for pneumonia with trace parapneumonic effusion. Recommend radiographic follow-up to ensure complete resolution. No pneumothorax is seen. Heart size is top normal. Patient's head is rotated. No acute osseous changes are seen. Impression: Patchy infiltrate in the right upper lobe and right upper lobe. Rounded opacity possibly relating to small amount of fluid within the fissure. Radiographic follow-up to resolution recommended. If opacities fail to resolve, short-term follow-up CT chest recommended to exclude other processes such as neoplasm. Electronically signed by: Jonny Ashley MD (09/14/2019 8:47 AM) [id number]
[2019-09-14] MEDS ORDERED: auryxia (08:58)
[2019-09-14] MEDS ORDERED: B,C/1TAB PO (08:58)
[2019-09-14] MEDS ORDERED: SEVE800T8 PO (08:58)
--- NOTE | 2019-09-14 09:17 | RAD ---
CT SOFT TISSUE NECK W/CONTRAST DATE: 09/14/2019 7:32 AM INDICATION: Neck pain, dyspnea, secretions TECHNIQUE: Axial computed tomography of the neck with intravenous contrast according to the standard neck protocol. 70 cc of Omnipaque 300 was administered intravenously. One or more of the following dose reduction techniques were utilized: Automated exposure control (AEC), Adjustment of mA and/or kV according to patient size, Use of iterative reconstruction technique such as ASiR, CT scan done according to ALARA and image gently/image wisely COMPARISON: None. FINDINGS: Mucosal thickening and narrowing of the larynx. No fluid collection. No retropharyngeal collection. Mild enlargement of the adenoids and palatine tonsils. Scattered subcentimeter lymph nodes are seen in the neck. None are pathologically enlarged or abnormally enhancing. The parotid, submandibular, and thyroid glands are normal. The muscles of the neck are normal. Vessels of the neck demonstrate normal course, caliber, and enhancement. The visualized posterior fossa and brain is unremarkable. The visualized orbits and paranasal sinuses are normal. Mild multilevel degenerative disc desiccation. Multilevel spinal canal stenosis secondary to disc protrusions and marginal osteophytes. Multilevel neural foraminal narrowing secondary to uncovertebral and facet arthrosis. The visualized lung apices are clear. IMPRESSION: 1. Mucosal thickening and narrowing of the larynx, which may reflect laryngitis. 2. Mild enlargement of the adenoids and palatine tonsils, likely reactive. Electronically signed by: Ranjit Luna MD (09/14/2019 9:13 AM) [id number]
[2019-09-14] MEDS ORDERED: DEXAMETHASONE SOD PHOS 20 MG/5 ML VIAL. IV ONE (10:15)
--- NOTE | 2019-09-14 10:22 | EKG ---
[facility] [address] [place] [address] Test Date: 2019-09-14 Test Time: 07:51:58 Pat Name: JOAQUIM TRAORE Department: Room: Gender: F Seat Maker: : [id number] Requested By: JONATHAN DESOUZA Order Number: [id number] Reading MD: Measurements Intervals [place] Rate: 79 P: 14 MA: 152 QRS: 0 QRSD: 86 T: 75 QT: 398 QTc: 463 Interpretive Statements SINUS RHYTHM LEFTWARD AXIS T ABNORMALITY IN HIGH LATERAL LEADS ABNORMAL ECG RI6.01 No previous ECG available for comparison
--- NOTE | 2019-09-14 11:13 | PDOC2 ---
CONSULT Date of Consult Date of Consult DATE: 09/14/19 TIME: 11:08 Reason for Consult Reason for Consult: ESRD AND HIGH K Referring Physician Referring Physician: LEV Identification/Chief Complaint Chief Complaint SOB Source Source: Chart review, Patient History of Present Illness Reason for Visit: THIS IS A 69 YR OLD ESRD PT WITH NON COMPLIANCE. HAS ESRD DUE TO DM II AND HTN. LABS ARE C/W ESRD. MISSED HER HD ON THURSDAY AND USUALLY HAS OP TX ON MWF. SO LAST HD WAS PAST THURSDAY. HAS C/O SOB AND ORTHOPNEA. HAS HD VIA A LEFT ARM AVF. NOTED FROM ER PHYSICIAN BELOW REVIEWED. HAS HD [facility]UALLY AT [facility] AND FOLLOWED BY [facility] HPI Patient is a 69-year-old female, who presents to the emergency department for evaluation. She states that she has had increasing shortness of breath, which she attributes to some discomfort in her throat, as well as increased salivary production, with spitting, over the past few days. She has a history of ESRD, but missed her dialysis on Thursday, because she states that she brought her to the hospital. Her next dialysis session is scheduled for this evening. She denies any pain, has not had any significant cough, denies chest pain, abdominal pain, nausea, vomiting, fevers, or chills. She has had some orthopnea. There are no alleviating or exacerbating factors to her symptoms. She states that she has had sensation of neck swelling in the past. Past Medical History Cardiovascular: HTN, Hyperlipidemia Heme/Onc: Anemia NOS Hepatobiliary: No pertinent hx Psych: Anxiety Musculoskeletal: Osteoarthritis Infectious disease: Other Renal/: Chronic renal failure Endocrine: Diabetes, Hyperparathyroidism Past Surgical History Past Surgical History LEFT ARM AVF Past Surgical History: Breast Biopsy, Hysterectomy, Other Family History Family History: Coronary Artery Disease, Hypertension Social History ALCOHOL: none Drugs: None Lives: with Family Domestic Violence: Neg Current Problem List Problem List Problems Medical Problems: (1) Dyspnea Status: Acute (2) Laryngitis Status: Acute (3) Missed dialysis Status: Acute Current Medications Current Medications Current Medications Iohexol (Omnipaque 300 Mg/ml) 70 ml 1X ONCE IV ; Start 09/14/19 at 08:30; Stop 09/14/19 at 08:31; Status DC Info (CONTRAST GIVEN -- Rx MONITORING) 1 each PRN DAILY PRN MC SEE COMMENTS; Start 09/14/19 at 08:30; Stop 09/16/19 at 08:29 Dexamethasone Sodium Phosphate (Decadron) 8 mg 1X ONCE IV ; Start 09/14/19 at 10:15; Stop 09/14/19 at 10:16; Status DC Clonidine HCl (Catapres) 0.1 mg 1X ONCE PO ; Start 09/14/19 at 11:15; Stop 09/14/19 at 11:16 Active Scripts Active Reported Renagel (Sevelamer Hcl) 800 Mg Tablet 800 Mg PO Renaplex-D Tablet (B,C/Folic/Zinc/Selenometh/D3/E) 1 Each Tablet 1 Each PO [auryxia] 1 Gm Aspirin 81 Mg Tab.chew 81 Mg PO DAILY Levemir Flextouch (Insulin Detemir) 100 Unit/1 Ml Insuln.pen 1 Unit SQ BID Anastrozole 1 Mg Tablet 1 Mg PO DAILY Carvedilol (Carvedilol) 3.125 Mg Tablet 3.125 Mg PO BIDWMEALS Amlodipine Besylate 5 Mg Tablet 1 Tab PO BID Allergies Allergies: Coded Allergies: No Known Drug Allergies (Unverified , 01/31/15) ROS General: YES: Fatigue, Malaise, Appetite PSYCHOLOGICAL ROS: YES: Anxiety HEENT: YES: Heacaches Respiratory: YES: Cough, Orthopnea, Shortness of breath Cardiovascular: yes Orthopnea, yes Edema Gastrointestinal: Yes Constipation Genitourinary: YES Other (ANURIA) Musculoskeletal: Yes Muscular Weakness Neurological: Yes Weakness Skin: Yes Dry Skin Physical Exam General: Alert, Oriented X3, Cooperative, mild distress HEENT: Atraumatic, PERRLA Lungs: Other (BASILAR RALES) Heart: Regular rate Abdomen: Normal bowel sounds, Soft Skin: No breakdown Neuro: Normal speech, Sensation intact Psych/Mental Status: Mental status NL, Mood NL MUSCULOSKELETAL: No deformity, No swelling Vitals VITALS Vital Signs Date Time Temp Pulse Resp B/P (MAP) Pulse Ox O2 Delivery O2 Flow Rate FiO2 09/14/19 10:38 80 18 248/112 (157) 97 Nasal Cannula 2.0 09/14/19 07:33 98.0 98.0 Labs Labs Laboratory Tests Test 09/14/19 07:53 White Blood Count 10.4 x10^3/uL (4.0-11.0) Red Blood Count 3.20 x10^6/uL (3.50-5.40) Hemoglobin 10.0 g/dL (12.0-15.5) Hematocrit 30.0 % (36.0-47.0) Mean Corpuscular Volume 94 fL (79-100) Mean Corpuscular Hemoglobin 31 pg (25-35) Mean Corpuscular Hemoglobin Concent 33 g/dL (31-37) Red Cell Distribution Width 15.1 % (11.5-14.5) Platelet Count 294 x10^3/uL (140-400) Neutrophils (%) (Auto) 83 % (31-73) Lymphocytes (%) (Auto) 10 % (24-48) Monocytes (%) (Auto) 4 % (0-9) Eosinophils (%) (Auto) 1 % (0-3) Basophils (%) (Auto) 1 % (0-3) Neutrophils # (Auto) 8.7 x10^3/uL (1.8-7.7) Lymphocytes # (Auto) 1.1 x10^3/uL (1.0-4.8) Monocytes # (Auto) 0.4 x10^3/uL (0.0-1.1) Eosinophils # (Auto) 0.1 x10^3/uL (0.0-0.7) Basophils # (Auto) 0.1 x10^3/uL (0.0-0.2) Prothrombin Time 13.2 SEC (11.7-14.0) Prothromb Time International Ratio 1.0 (0.8-1.1) Sodium Level 141 mmol/L (136-145) Potassium Level 5.8 mmol/L (3.5-5.1) Chloride Level 99 mmol/L (98-107) Carbon Dioxide Level 25 mmol/L (21-32) Anion Gap 17 (6-14) Blood Urea Nitrogen 120 mg/dL (7-20) Creatinine 17.4 mg/dL (0.6-1.0) Estimated GFR (Cockcroft-Gault) 2.5 BUN/Creatinine Ratio 7 (6-20) Glucose Level 143 mg/dL (70-99) Calcium Level 9.7 mg/dL (8.5-10.1) Total Bilirubin 0.4 mg/dL (0.2-1.0) Aspartate Amino Transf (AST/SGOT) 12 U/L (15-37) Alanine Aminotransferase (ALT/SGPT) < 6 U/L (14-59) Alkaline Phosphatase 116 U/L (46-116) Troponin I Quantitative 0.044 ng/mL (0.000-0.055) Total Protein 7.4 g/dL (6.4-8.2) Albumin 3.5 g/dL (3.4-5.0) Albumin/Globulin Ratio 0.9 (1.0-1.7) Laboratory Tests Test 09/14/19 07:53 White Blood Count 10.4 x10^3/uL (4.0-11.0) Red Blood Count 3.20 x10^6/uL (3.50-5.40) Hemoglobin 10.0 g/dL (12.0-15.5) Hematocrit 30.0 % (36.0-47.0) Mean Corpuscular Volume 94 fL (79-100) Mean Corpuscular Hemoglobin 31 pg (25-35) Mean Corpuscular Hemoglobin Concent 33 g/dL (31-37) Red Cell Distribution Width 15.1 % (11.5-14.5) Platelet Count 294 x10^3/uL (140-400) Neutrophils (%) (Auto) 83 % (31-73) Lymphocytes (%) (Auto) 10 % (24-48) Monocytes (%) (Auto) 4 % (0-9) Eosinophils (%) (Auto) 1 % (0-3) Basophils (%) (Auto) 1 % (0-3) Neutrophils # (Auto) 8.7 x10^3/uL (1.8-7.7) Lymphocytes # (Auto) 1.1 x10^3/uL (1.0-4.8) Monocytes # (Auto) 0.4 x10^3/uL (0.0-1.1) Eosinophils # (Auto) 0.1 x10^3/uL (0.0-0.7) Basophils # (Auto) 0.1 x10^3/uL (0.0-0.2) Prothrombin Time 13.2 SEC (11.7-14.0) Prothromb Time International Ratio 1.0 (0.8-1.1) Sodium Level 141 mmol/L (136-145) Potassium Level 5.8 mmol/L (3.5-5.1) Chloride Level 99 mmol/L (98-107) Carbon Dioxide Level 25 mmol/L (21-32) Anion Gap 17 (6-14) Blood Urea Nitrogen 120 mg/dL (7-20) Creatinine 17.4 mg/dL (0.6-1.0) Estimated GFR (Cockcroft-Gault) 2.5 BUN/Creatinine Ratio 7 (6-20) Glucose Level 143 mg/dL (70-99) Calcium Level 9.7 mg/dL (8.5-10.1) Total Bilirubin 0.4 mg/dL (0.2-1.0) Aspartate Amino Transf (AST/SGOT) 12 U/L (15-37) Alanine Aminotransferase (ALT/SGPT) < 6 U/L (14-59) Alkaline Phosphatase 116 U/L (46-116) Troponin I Quantitative 0.044 ng/mL (0.000-0.055) Total Protein 7.4 g/dL (6.4-8.2) Albumin 3.5 g/dL (3.4-5.0) Albumin/Globulin Ratio 0.9 (1.0-1.7) Assessment/Plan Assessment/Plan IMP HYPERKALEMIA HYPERVOLEMIA ANEMIA ESRD DM II HTN PLAN HD TODAY UF TO DW START ARANESP ENC COMPLIANCE JASVIR ALVARES MD Sep 14, 2019 11:13
[2019-09-14] MEDS ORDERED: cloNIDine HCL 0.1 MG TABLET PO ONE (11:15)
[2019-09-14 12:30] VITALS: BP 226/100
[2019-09-14] MEDS ORDERED: IV NORMAL SALINE 1000ML BAG 1,000 ML IV PRN (13:00)
[2019-09-14] MEDS ORDERED: LIDOCAINE 1% PF 2 ML VIAL. ONE (14:03)
[2019-09-14] MEDS ORDERED: FERR210T PO (14:06)
--- NOTE | 2019-09-14 15:38 | PDOC1 ---
History and Physical Date of Admission: Date of Admission DATE: 09/14/19 TIME: 15:32 Chief Complaint: Problems: (1) CHF exacerbation (2) Dyspnea (3) Laryngitis (4) Missed dialysis (5) Respiratory failure (6) Respiratory failure (7) Acute hypoxemic respiratory failure (8) Accelerated hypertension (9) Acute diastolic CHF (congestive heart failure) (10) ESRD (end stage renal disease) (11) Anemia Chief Complain: Shortness of breath and sore throat and missed dialysis History of Present Illness: HPI: This is a 69-year-old female well-known to my service. She is noncompliant with her dialysis at times Now she short of breath and admits she missed dialysis While in the ER we noticed that she is hyperkalemic She also has a sore throat with some laryngitis pharyngitis Rates her symptoms at 9 out of 10 This is been coming on for several days She increased her home meds but that didn't help Describes her symptoms as very irritating She also has some orthopnea While here in the ER she also has hypertensive emergency with blood pressures in the 200s systolically I discussed the case with the ER physician we're going to admit the patient and get her dialyzed Past Medical/Surgical History: PMH/PSH: Past Medical History: Diabetes-Type II, Hypertension, Renal Failure, Other Additional Past Medical Histor: UNKNOWN HX Past Surgical History: Hysterectomy, Other Additional Past Surgical Histo: PERITONEAL CATHERER REMOVED, FISTULA LUE, ABD SURG FOR PERIOTONITIS Alcohol Use: None Drug Use: None Allergies: Allergies: Coded Allergies: No Known Drug Allergies (Unverified , 01/31/15) Family History: Family History: End-stage renal disease and diabetes Social History: Social Hisoty: She doesn't drink smoke or take drugs she is lives with her Current Medications: Current Medications Current Medications Iohexol (Omnipaque 300 Mg/ml) 70 ml 1X ONCE IV ; Start 09/14/19 at 08:30; Stop 09/14/19 at 08:31; Status DC Info (CONTRAST GIVEN -- Rx MONITORING) 1 each PRN DAILY PRN MC SEE COMMENTS; Start 09/14/19 at 08:30; Stop 09/16/19 at 08:29 Dexamethasone Sodium Phosphate (Decadron) 8 mg 1X ONCE IV Last administered on 09/14/19at 11:52; Start 09/14/19 at 10:15; Stop 09/14/19 at 10:16; Status DC Clonidine HCl (Catapres) 0.1 mg 1X ONCE PO Last administered on 09/14/19at 11:51; Start 09/14/19 at 11:15; Stop 09/14/19 at 11:16; Status DC Darbepoetin Shan (ARANESP for DIALYSIS PTS) 60 mcg WEEKLYHS SQ ; Start 09/14/19 at 21:00 Lidocaine HCl (Xylocaine-Mpf 1% 2ml Vial) 2 ml STK-MED ONCE .ROUTE ; Start 09/14/19 at 14:03; Stop 09/14/19 at 14:03; Status DC Active Scripts Active Reported Ferric Citrate 210 Mg Tablet 4 Tab PO TIDWMEALS 30 Days Renagel (Sevelamer Hcl) 800 Mg Tablet 2 Tab PO TIDAC Renaplex-D Tablet (B,C/Folic/Zinc/Selenometh/D3/E) 1 Each Tablet 1 Each PO DAILY Aspirin 81 Mg Tab.chew 81 Mg PO DAILY Levemir Flextouch (Insulin Detemir) 100 Unit/1 Ml Insuln.pen 1 Unit SQ BID Anastrozole 1 Mg Tablet 1 Mg PO DAILY Carvedilol (Carvedilol) 3.125 Mg Tablet 3.125 Mg PO BIDWMEALS Amlodipine Besylate 5 Mg Tablet 1 Tab PO BID ROS: Review of Systems Review of System REVIEW OF SYSTEMS: GENERAL: Complains of weakness SKIN: No bruising, hair changes or rashes. EYES: No blurred, double or loss of vision. NOSE AND THROAT: Complains of a sore throat HEART: No history of palpitations, chest pain or shortness of breath on exertion. LUNGS: Complains of shortness of breath GASTROINTESTINAL: Denies changes in appetite, nausea, vomiting, diarrhea or constipation. GENITOURINARY: No history of frequency, urgency, hesitancy or nocturia. NEUROLOGIC: Denies history of numbness, tingling, or tremor. PSYCHIATRIC: No history of panic, anxiety or depression. ENDOCRINE: No history of heat or cold intolerance, polyuria or polydipsia. EXTREMITIES: Denies joint pain, pain on walking or stiffness. Physical Exam: Vital Signs: Vital Signs Date Time Temp Pulse Resp B/P (MAP) Pulse Ox O2 Delivery O2 Flow Rate FiO2 1/29/20 12:30 97.5 18 20 226/100 (142) 95 Nasal Cannula 2.0 97.5 Physcial Exam: GEN: No apparent distress. Alert and oriented currently being dialyzed emergently HEENT: Normal cephalic, atraumatic, external auditory canals are patent EYES: Extraocular muscles are intact, pupil are equally round and reactive to light and accommodation MUSCULOSKELETAL: Well developed , well nourished, good range of motion ENDOCRINE: No thyromegaly was palpated LYMPHATICS: No cervical chain or axillary nodes were noted HEMATOPOIETIC: No bruising NECK: Supple, no JVD, no thyromegaly was noted LUNGS: Mild bibasilar crackles HEART: RRR, S!, S2 present. Peripheral pulses intact, no obvious murmurs noted ABDOMEN: Soft, nontender. Positive bowel sounds, no organomegaly, normal bowel sounds EXTREMITIES: 1+ edema NEUROLOGIC: Sleepy but woke up PSYCHIATRIC: Normal affect, normal mood. Stable SKIN: No ulcerations or rashes, good skin turgor, no jaundice VASCULAR: Good capillary refill, neurovascular bundle appears to be intact Labs: Labs: Laboratory Tests Test 09/14/19 07:53 White Blood Count 10.4 x10^3/uL (4.0-11.0) Red Blood Count 3.20 x10^6/uL (3.50-5.40) Hemoglobin 10.0 g/dL (12.0-15.5) Hematocrit 30.0 % (36.0-47.0) Mean Corpuscular Volume 94 fL (79-100) Mean Corpuscular Hemoglobin 31 pg (25-35) Mean Corpuscular Hemoglobin Concent 33 g/dL (31-37) Red Cell Distribution Width 15.1 % (11.5-14.5) Platelet Count 294 x10^3/uL (140-400) Neutrophils (%) (Auto) 83 % (31-73) Lymphocytes (%) (Auto) 10 % (24-48) Monocytes (%) (Auto) 4 % (0-9) Eosinophils (%) (Auto) 1 % (0-3) Basophils (%) (Auto) 1 % (0-3) Neutrophils # (Auto) 8.7 x10^3/uL (1.8-7.7) Lymphocytes # (Auto) 1.1 x10^3/uL (1.0-4.8) Monocytes # (Auto) 0.4 x10^3/uL (0.0-1.1) Eosinophils # (Auto) 0.1 x10^3/uL (0.0-0.7) Basophils # (Auto) 0.1 x10^3/uL (0.0-0.2) Prothrombin Time 13.2 SEC (11.7-14.0) Prothromb Time International Ratio 1.0 (0.8-1.1) Sodium Level 141 mmol/L (136-145) Potassium Level 5.8 mmol/L (3.5-5.1) Chloride Level 99 mmol/L (98-107) Carbon Dioxide Level 25 mmol/L (21-32) Anion Gap 17 (6-14) Blood Urea Nitrogen 120 mg/dL (7-20) Creatinine 17.4 mg/dL (0.6-1.0) Estimated GFR (Cockcroft-Gault) 2.5 BUN/Creatinine Ratio 7 (6-20) Glucose Level 143 mg/dL (70-99) Calcium Level 9.7 mg/dL (8.5-10.1) Total Bilirubin 0.4 mg/dL (0.2-1.0) Aspartate Amino Transf (AST/SGOT) 12 U/L (15-37) Alanine Aminotransferase (ALT/SGPT) < 6 U/L (14-59) Alkaline Phosphatase 116 U/L (46-116) Troponin I Quantitative 0.044 ng/mL (0.000-0.055) Total Protein 7.4 g/dL (6.4-8.2) Albumin 3.5 g/dL (3.4-5.0) Albumin/Globulin Ratio 0.9 (1.0-1.7) Laboratory Tests Test 09/14/19 07:53 White Blood Count 10.4 x10^3/uL (4.0-11.0) Red Blood Count 3.20 x10^6/uL (3.50-5.40) Hemoglobin 10.0 g/dL (12.0-15.5) Hematocrit 30.0 % (36.0-47.0) Mean Corpuscular Volume 94 fL (79-100) Mean Corpuscular Hemoglobin 31 pg (25-35) Mean Corpuscular Hemoglobin Concent 33 g/dL (31-37) Red Cell Distribution Width 15.1 % (11.5-14.5) Platelet Count 294 x10^3/uL (140-400) Neutrophils (%) (Auto) 83 % (31-73) Lymphocytes (%) (Auto) 10 % (24-48) Monocytes (%) (Auto) 4 % (0-9) Eosinophils (%) (Auto) 1 % (0-3) Basophils (%) (Auto) 1 % (0-3) Neutrophils # (Auto) 8.7 x10^3/uL (1.8-7.7) Lymphocytes # (Auto) 1.1 x10^3/uL (1.0-4.8) Monocytes # (Auto) 0.4 x10^3/uL (0.0-1.1) Eosinophils # (Auto) 0.1 x10^3/uL (0.0-0.7) Basophils # (Auto) 0.1 x10^3/uL (0.0-0.2) Prothrombin Time 13.2 SEC (11.7-14.0) Prothromb Time International Ratio 1.0 (0.8-1.1) Sodium Level 141 mmol/L (136-145) Potassium Level 5.8 mmol/L (3.5-5.1) Chloride Level 99 mmol/L (98-107) Carbon Dioxide Level 25 mmol/L (21-32) Anion Gap 17 (6-14) Blood Urea Nitrogen 120 mg/dL (7-20) Creatinine 17.4 mg/dL (0.6-1.0) Estimated GFR (Cockcroft-Gault) 2.5 BUN/Creatinine Ratio 7 (6-20) Glucose Level 143 mg/dL (70-99) Calcium Level 9.7 mg/dL (8.5-10.1) Total Bilirubin 0.4 mg/dL (0.2-1.0) Aspartate Amino Transf (AST/SGOT) 12 U/L (15-37) Alanine Aminotransferase (ALT/SGPT) < 6 U/L (14-59) Alkaline Phosphatase 116 U/L (46-116) Troponin I Quantitative 0.044 ng/mL (0.000-0.055) Total Protein 7.4 g/dL (6.4-8.2) Albumin 3.5 g/dL (3.4-5.0) Albumin/Globulin Ratio 0.9 (1.0-1.7) Images: Images History x-ray showed vascular congestion Assessment/Plan Assessment/Plan Hypertensive emergency Hyperkalemia Pharyngitis laryngitis Noncompliance Past Medical History: Diabetes-Type II, Hypertension, Renal Failure, Other Additional Past Medical Histor: UNKNOWN HX Past Surgical History: Hysterectomy, Other Additional Past Surgical Histo: PERITONEAL CATHERER REMOVED, FISTULA LUE, ABD SURG PERIOTONITIS Alcohol Use: None Drug Use: None Plan Emergent dialysis IV antibiotics IV antihypertensives Consult nephrology Cardiac monitoring Home meds Trend labs Electrolyte correction DVT prophylaxis Full code Prognosis guarded GENE LUCAS III DO Sep 14, 2019 15:38
[2019-09-14 18:26] VITALS: BP 175/80
--- NOTE | 2019-09-14 19:16 | RAD ---
CT HEAD INDICATION: Confusion COMPARISON: 06/26/2019 Exposure: One or more of the following individualized dose reduction techniques were utilized for this examination: 1. Automated exposure control 2. Adjustment of the mA and/or kV according to patient size 3. Use of iterative reconstruction technique TECHNIQUE: 5 mm contiguous axial images were obtained from the skull base to the vertex in both bone and soft tissue algorithm. FINDINGS: No abnormal attenuation within the brain parenchyma. Calcifications in the left parieto-occipital parenchyma similar to prior exams. No evidence of acute intracranial hemorrhage. No extra-axial fluid collections. No mass effect or midline shift. Ventricular size is appropriate. Basal cisterns are patent. No fractures identified.Pinto-white differentiation is preserved.Globes and orbits are within normal limits. Paranasal sinuses and mastoid air cells are clear. IMPRESSION: No acute intracranial findings. Electronically signed by: Bruno Johnson MD (09/14/2019 7:13 PM) [facility]
[2019-09-14] MEDS: cefTRIAXone IV Push 1 GM VIAL. IVP SCH (19:34)
[2019-09-14] MEDS: hydrALAZINE 20 MG/ML VIAL. IVP PRN (19:44)
[2019-09-14] MEDS ORDERED: SODIUM PHOSPHATES 19/7GM 133 ML ENEMA. PR ONE (20:00)
--- NOTE | 2019-09-14 20:06 | NUR ---
Patient admitted to room 676 around 1300 today. Patient was alert and oriented. C/O SOA related to fullness in her abdomen which patient states was from not having dialysis on Thursday. Patient ate 50% of her lunch without difficulty and was able to answer all admission questions appropriately. Patient sent to dialysis after admitting patient. At approx 1800, patient returned from dialysis. Patient now alert to self but unable to answer any questions without falling asleep. Patient very lethargic but wakes up for short periods when saying patients name repetitively. Patient having occasional tremors in arms and BP continues to be elevated. BP-175/84 P-78. Spoke with Dr. Lundberg. Orders recieved for CT head and frequent neuro checks. Consult to Dr. Mcclendon who was notified and new orders received. Thorough report given to air operations manager nurse at this time.
[2019-09-14] MEDS ORDERED: DIALYSIS PATIENT. MC PRN (20:45)
[2019-09-14] MEDS ORDERED: DARBEPOETIN ALFA 60 MCG/0.3 ML DISP.SYRIN. SQ SCH (21:00)
[2019-09-14 23:58] VITALS: BP 137/72
[2019-09-15 03:39] VITALS: BP 138/69
[2019-09-15 07:15] VITALS: BP 187/80
[2019-09-15] MEDS: GABAPENTIN 100 MG CAPSULE. PO SCH (08:46)
[2019-09-15 09:45] LABS: CALCIUM 8.7 mg/dL (8.5-10.1); CREATININE 9.3 mg/dL (0.6-1.0); GFR 5.1; POTASSIUM 4.7 mmol/L (3.5-5.1)
[2019-09-15 11:04] VITALS: BP 197/84
--- NOTE | 2019-09-15 11:33 | PDOC ---
SUBJECTIVE ROS Stable OBJECTIVE Vital Signs Vital Signs Date Time Temp Pulse Resp B/P (MAP) Pulse Ox O2 Delivery O2 Flow Rate FiO2 09/15/19 08:00 Nasal Cannula 2.0 09/15/19 07:15 98.3 71 18 187/80 (115) 97 98.3 I & 0 Intake and Output 09/15/19 07:00 Intake Total 350 ml Balance 350 ml Intake Oral 350 ml PHYSICAL EXAM Physical Exam General: Alert, Oriented X3, NAD HEENT: OM moist Neck supple Lungs: CTA Bilat CV RRR Abdomen: Soft Extremities: No edema Neuro: Grossly Normal No Boyle Skin no rash DIAGNOSIS/ASSESSMENT Assessment & Plan ESRDdialyzes under the care of physicians on MWF She is an ESRD for approximately 6-7 years Dialyzed yesterday, No indication today Hyperkalemia- at presentation, Dialyzed, Hypertension- Antihypertensives diastolic CHF Chronic Non complaince Anemia- Hgb to 10-11, FADI per protocol COMMENT/RELEVANT DATA Meds Current Medications Medications (Trade) Dose Ordered Sig/Aruna Start Time Stop Time Status Last Admin Dose Admin Ceftriaxone Sodium (Rocephin) 1 gm Q24H 09/14/19 17:00 09/14/19 19:34 1 GM Clonidine HCl (Catapres) 0.1 mg 1X ONCE 09/14/19 11:15 09/14/19 11:16 DC 09/14/19 11:51 0.1 MG Darbepoetin Shan (ARANESP for DIALYSIS PTS) 60 mcg WEEKLYHS 09/14/19 21:00 09/14/19 21:27 60 MCG Dexamethasone Sodium Phosphate (Decadron) 8 mg 1X ONCE 09/14/19 10:15 09/14/19 10:16 DC 09/14/19 11:52 8 MG Gabapentin (Neurontin) 100 mg DAILY 09/15/19 06:30 09/15/19 08:46 100 MG Hydralazine HCl (Apresoline Inj) 10 mg PRN Q4HRS PRN 09/14/19 18:45 09/14/19 19:44 10 MG Info (CONTRAST GIVEN -- Rx MONITORING) 1 each PRN DAILY PRN 09/14/19 08:30 09/16/19 08:29 Info (PHARMACY MONITORING -- do not chart) 1 each PRN DAILY PRN 09/14/19 20:45 Iohexol (Omnipaque 300 Mg/ml) 70 ml 1X ONCE 09/14/19 08:30 09/14/19 08:31 DC Lidocaine HCl (Xylocaine-Mpf 1% 2ml Vial) 2 ml STK-MED ONCE 09/14/19 14:03 09/14/19 14:03 DC Sodium Monofluorophosphate (Fleet Adult) 133 ml 1X ONCE 09/14/19 20:00 09/14/19 20:01 Cancel Sodium Chloride 1,000 ml @ 1,000 mls/hr Q1H PRN 09/14/19 13:00 Lab Laboratory Tests Test 09/14/19 20:22 09/15/19 02:33 09/15/19 04:15 09/15/19 07:33 Glucose (Fingerstick) 179 mg/dL (70-99) 152 mg/dL (70-99) 194 mg/dL (70-99) Sodium Level 140 mmol/L (136-145) Potassium Level 4.7 mmol/L (3.5-5.1) Chloride Level 99 mmol/L (98-107) Carbon Dioxide Level 31 mmol/L (21-32) Anion Gap 10 (6-14) Blood Urea Nitrogen 48 mg/dL (7-20) Creatinine 9.3 mg/dL (0.6-1.0) Estimated GFR (Cockcroft-Gault) 5.1 Glucose Level 220 mg/dL (70-99) Calcium Level 8.7 mg/dL (8.5-10.1) Vitamin B12 Level > 2000 pg/mL (247-911) Thyroid Stimulating Hormone (TSH) 1.589 uIU/mL (0.358-3.74) Results All relevant outside records, renal labs, imaging studies, telemetry/EKG's were reviewed. ELIEL VIVAR MD Sep 15, 2019 11:33
[2019-09-15] MEDS ORDERED: DEXTROSE 50% 25 GM / 50ML DISP.SYRIN. IV PRN (12:15)
[2019-09-15] MEDS ORDERED: IV DEXTROSE 5% 250 ML BAG. IV PRN (12:15)
--- NOTE | 2019-09-15 12:20 | PDOC ---
PROGRESS NOTES Chief Complaint Chief Complaint HYPERKALEMIA HYPERVOLEMIA, missed HD ESRD HD DM II only on SSI, unknown hgba1c HTN, controlled Abn CXR, ex smoker - quit 6 yrs ago ENlarged LNs, reactive LAryngeitis History of Present Illness History of Present Illness CT soft tissue neck 1. Mucosal thickening and narrowing of the larynx, which may reflect laryngitis. 2. Mild enlargement of the adenoids and palatine tonsils, likely reactive. CXR: mpression: Patchy infiltrate in the right upper lobe and right upper lobe. Rounded opacity possibly relating to small amount of fluid within the fissure. Radiographic follow-up to resolution recommended. If opacities fail to resolve, short-term follow-up CT chest recommended to exclude other processes such as neoplasm. SHE DOES HAVE SMOKING HX, x 15 yrs, quit 6 yrs ago when she started hD HEad CT : IMPRESSION: No acute intracranial findings. SHE GOT HD yesterday, for HD tmr HEr creat was 15 with K 5,8 on arrival Not smoking anymore She did not want mRI or EEG - neuro consulted by colleague on admission? PLAn: CT chest she is agreeable bec of abN CXR and risk factors HD tmr MAy eat PT OT Resume home meds - done SSI high dose Check hgba1c Recheck BMP today with emphasis on K and bicarb dw family Vitals Vitals Vital Signs Date Time Temp Pulse Resp B/P (MAP) Pulse Ox O2 Delivery O2 Flow Rate FiO2 09/15/19 08:00 Nasal Cannula 2.0 09/15/19 07:15 98.3 71 18 187/80 (115) 97 98.3 Physical Exam General: Alert, Oriented X3, Cooperative, mild distress Heart: Regular rate Lungs: Crackles, Other Abdomen: Normal bowel sounds, Soft Skin: No breakdown Labs LABS Laboratory Tests Test 09/14/19 20:22 09/15/19 02:33 09/15/19 04:15 09/15/19 07:33 Glucose (Fingerstick) 179 mg/dL (70-99) 152 mg/dL (70-99) 194 mg/dL (70-99) Sodium Level 140 mmol/L (136-145) Potassium Level 4.7 mmol/L (3.5-5.1) Chloride Level 99 mmol/L (98-107) Carbon Dioxide Level 31 mmol/L (21-32) Anion Gap 10 (6-14) Blood Urea Nitrogen 48 mg/dL (7-20) Creatinine 9.3 mg/dL (0.6-1.0) Estimated GFR (Cockcroft-Gault) 5.1 Glucose Level 220 mg/dL (70-99) Calcium Level 8.7 mg/dL (8.5-10.1) Vitamin B12 Level > 2000 pg/mL (247-911) Thyroid Stimulating Hormone (TSH) 1.589 uIU/mL (0.358-3.74) Test 09/15/19 11:50 Glucose (Fingerstick) 190 mg/dL (70-99) Review of Systems Review of Systems neg 14 pt reviewed with her Assessment and Plan Assessmemt and Plan Problems Medical Problems: (1) Dyspnea Status: Acute (2) Laryngitis Status: Acute (3) Missed dialysis Status: Acute Comment Review of Relevant I have reviewed the following items (where applicable) has been applied. Labs Laboratory Tests Test 09/14/19 07:53 09/14/19 20:22 09/15/19 02:33 09/15/19 04:15 White Blood Count 10.4 x10^3/uL (4.0-11.0) Red Blood Count 3.20 x10^6/uL (3.50-5.40) Hemoglobin 10.0 g/dL (12.0-15.5) Hematocrit 30.0 % (36.0-47.0) Mean Corpuscular Volume 94 fL (79-100) Mean Corpuscular Hemoglobin 31 pg (25-35) Mean Corpuscular Hemoglobin Concent 33 g/dL (31-37) Red Cell Distribution Width 15.1 % (11.5-14.5) Platelet Count 294 x10^3/uL (140-400) Neutrophils (%) (Auto) 83 % (31-73) Lymphocytes (%) (Auto) 10 % (24-48) Monocytes (%) (Auto) 4 % (0-9) Eosinophils (%) (Auto) 1 % (0-3) Basophils (%) (Auto) 1 % (0-3) Neutrophils # (Auto) 8.7 x10^3/uL (1.8-7.7) Lymphocytes # (Auto) 1.1 x10^3/uL (1.0-4.8) Monocytes # (Auto) 0.4 x10^3/uL (0.0-1.1) Eosinophils # (Auto) 0.1 x10^3/uL (0.0-0.7) Basophils # (Auto) 0.1 x10^3/uL (0.0-0.2) Prothrombin Time 13.2 SEC (11.7-14.0) Prothromb Time International Ratio 1.0 (0.8-1.1) Sodium Level 141 mmol/L (136-145) 140 mmol/L (136-145) Potassium Level 5.8 mmol/L (3.5-5.1) 4.7 mmol/L (3.5-5.1) Chloride Level 99 mmol/L (98-107) 99 mmol/L (98-107) Carbon Dioxide Level 25 mmol/L (21-32) 31 mmol/L (21-32) Anion Gap 17 (6-14) 10 (6-14) Blood Urea Nitrogen 120 mg/dL (7-20) 48 mg/dL (7-20) Creatinine 17.4 mg/dL (0.6-1.0) 9.3 mg/dL (0.6-1.0) Estimated GFR (Cockcroft-Gault) 2.5 5.1 BUN/Creatinine Ratio 7 (6-20) Glucose Level 143 mg/dL (70-99) 220 mg/dL (70-99) Calcium Level 9.7 mg/dL (8.5-10.1) 8.7 mg/dL (8.5-10.1) Total Bilirubin 0.4 mg/dL (0.2-1.0) Aspartate Amino Transf (AST/SGOT) 12 U/L (15-37) Alanine Aminotransferase (ALT/SGPT) < 6 U/L (14-59) Alkaline Phosphatase 116 U/L (46-116) Troponin I Quantitative 0.044 ng/mL (0.000-0.055) Total Protein 7.4 g/dL (6.4-8.2) Albumin 3.5 g/dL (3.4-5.0) Albumin/Globulin Ratio 0.9 (1.0-1.7) Glucose (Fingerstick) 179 mg/dL (70-99) 152 mg/dL (70-99) Vitamin B12 Level > 2000 pg/mL (247-911) Thyroid Stimulating Hormone (TSH) 1.589 uIU/mL (0.358-3.74) Test 09/15/19 07:33 09/15/19 11:50 Glucose (Fingerstick) 194 mg/dL (70-99) 190 mg/dL (70-99) Laboratory Tests Test 09/14/19 20:22 09/15/19 02:33 09/15/19 04:15 09/15/19 07:33 Glucose (Fingerstick) 179 mg/dL (70-99) 152 mg/dL (70-99) 194 mg/dL (70-99) Sodium Level 140 mmol/L (136-145) Potassium Level 4.7 mmol/L (3.5-5.1) Chloride Level 99 mmol/L (98-107) Carbon Dioxide Level 31 mmol/L (21-32) Anion Gap 10 (6-14) Blood Urea Nitrogen 48 mg/dL (7-20) Creatinine 9.3 mg/dL (0.6-1.0) Estimated GFR (Cockcroft-Gault) 5.1 Glucose Level 220 mg/dL (70-99) Calcium Level 8.7 mg/dL (8.5-10.1) Vitamin B12 Level > 2000 pg/mL (247-911) Thyroid Stimulating Hormone (TSH) 1.589 uIU/mL (0.358-3.74) Test 09/15/19 11:50 Glucose (Fingerstick) 190 mg/dL (70-99) Medications Current Medications Iohexol (Omnipaque 300 Mg/ml) 70 ml 1X ONCE IV ; Start 09/14/19 at 08:30; Stop 09/14/19 at 08:31; Status DC Info (CONTRAST GIVEN -- Rx MONITORING) 1 each PRN DAILY PRN MC SEE COMMENTS; Start 09/14/19 at 08:30; Stop 09/16/19 at 08:29 Dexamethasone Sodium Phosphate (Decadron) 8 mg 1X ONCE IV Last administered on 09/14/19at 11:52; Start 09/14/19 at 10:15; Stop 09/14/19 at 10:16; Status DC Clonidine HCl (Catapres) 0.1 mg 1X ONCE PO Last administered on 09/14/19at 11:51; Start 09/14/19 at 11:15; Stop 09/14/19 at 11:16; Status DC Darbepoetin Shan (ARANESP for DIALYSIS PTS) 60 mcg WEEKLYHS SQ Last administered on 09/14/19at 21:27; Start 09/14/19 at 21:00 Lidocaine HCl (Xylocaine-Mpf 1% 2ml Vial) 2 ml STK-MED ONCE .ROUTE ; Start 09/14/19 at 14:03; Stop 09/14/19 at 14:03; Status DC Ceftriaxone Sodium (Rocephin) 1 gm Q24H IVP Last administered on 09/14/19at 19:34; Start 09/14/19 at 17:00 Hydralazine HCl (Apresoline Inj) 10 mg PRN Q4HRS PRN IVP ELEVATED BP, SEE COMMENTS Last administered on 09/14/19at 19:44; Start 09/14/19 at 18:45 Sodium Monofluorophosphate (Fleet Adult) 133 ml 1X ONCE [place] ; Start 09/14/19 at 20:00; Stop 09/14/19 at 20:01; Status Cancel Sodium Chloride 1,000 ml @ 1,000 mls/hr Q1H PRN IV hypotension; Start 09/14/19 at 13:00 Info (PHARMACY MONITORING -- do not chart) 1 each PRN DAILY PRN MC SEE COMMENTS; Start 09/14/19 at 20:45 Gabapentin (Neurontin) 100 mg DAILY PO Last administered on 09/15/19at 08:46; Start 09/15/19 at 06:30 Insulin Human Lispro (HumaLOG) 0-9 UNITS TIDWMEALS SQ ; Start 09/15/19 at 17:00; Status UNV Dextrose (Dextrose 50%-Water Syringe) 12.5 gm PRN Q15MIN PRN IV SEE COMMENTS; Start 09/15/19 at 12:15; Status UNV Dextrose (Iv Dextrose 5%) 250 ml PRN Q15MIN PRN IV SEE COMMENTS; Start 09/15/19 at 12:15; Status UNV Amlodipine Besylate (Norvasc) 5 mg BID PO ; Start 09/15/19 at 21:00; Status UNV Anastrozole (Arimidex) 1 mg DAILY PO ; Start 09/16/19 at 09:00; Status UNV Active Scripts Active Reported Ferric Citrate 210 Mg Tablet 4 Tab PO TIDWMEALS 30 Days Renagel (Sevelamer Hcl) 800 Mg Tablet 2 Tab PO TIDAC Renaplex-D Tablet (B,C/Folic/Zinc/Selenometh/D3/E) 1 Each Tablet 1 Each PO DAILY Aspirin 81 Mg Tab.chew 81 Mg PO DAILY Levemir Flextouch (Insulin Detemir) 100 Unit/1 Ml Insuln.pen 1 Unit SQ BID Anastrozole 1 Mg Tablet 1 Mg PO DAILY Carvedilol (Carvedilol) 3.125 Mg Tablet 3.125 Mg PO BIDWMEALS Amlodipine Besylate 5 Mg Tablet 1 Tab PO BID Vitals/I & O Vital Sign - Last 24 Hours 09/14/19 09/14/19 09/14/19 09/14/19 12:30 13:20 18:26 19:44 Temp 97.5 98.0 97.5 98.0 Pulse 78 78 78 Resp 20 16 B/P (MAP) 226/100 (142) 175/80 (111) 175/84 Pulse Ox 95 100 O2 Delivery Nasal Cannula Nasal Cannula Nasal Cannula O2 Flow Rate 2.0 2.0 2.0 09/14/19 09/14/19 09/15/19 09/15/19 20:17 23:58 03:39 07:15 Temp 98.8 98.2 98.3 98.8 98.2 98.3 Pulse 80 75 71 Resp 18 18 18 B/P (MAP) 137/72 (93) 138/69 (92) 187/80 (115) Pulse Ox 99 97 97 O2 Delivery Nasal Cannula Nasal Cannula Nasal Cannula Nasal Cannula O2 Flow Rate 2.0 2.0 2.0 2.0 09/15/19 08:00 O2 Delivery Nasal Cannula O2 Flow Rate 2.0 Intake and Output 09/14/19 09/14/19 09/15/19 15:00 23:00 07:00 Intake Total 0 ml 350 ml Balance 0 ml 350 ml JOHN OHARA MD Sep 15, 2019 12:20
[2019-09-15] MEDS: FOLIC/VIT B COMP W-C (RENAL) TABLET. PO SCH (12:41)
[2019-09-15] MEDS: SEVELAMER CARBONATE 800 MG TABLET. PO SCH ×2 (12:42→16:35)
[2019-09-15] MEDS: amLODIPine BESYLATE 5 MG TABLET PO SCH ×2 (12:42→21:00)
[2019-09-15] MEDS: CARVEDILOL 3.125 MG TABLET. PO SCH ×2 (12:42→16:35)
[2019-09-15] MEDS: ASPIRIN CHEWABLE 81 MG TABLET. PO SCH (12:42)
[2019-09-15] MEDS: ANASTROZOLE 1 MG TABLET PO SCH (12:43)
[2019-09-15] MEDS: INSULIN LISPRO 300 UNITS/3 ML VIAL. SQ SCH ×2 (12:44→16:44)
--- NOTE | 2019-09-15 13:15 | RAD ---
CT CHEST WO CONTRAST Indication: Haziness of the right lung on x-ray Technique: Noncontrast CT imaging was performed of the chest, multiplanar reconstruction images submitted. One or more of the following individualized dose reduction techniques were utilized for this examination: 1. Automated exposure control 2. Adjustment of the mA and/or kV according to patient size 3. Use of iterative reconstruction technique. Comparison: September 05 chest radiograph Findings: There is motion degradation. There is some more localized fluid density along the superior aspect of the right major fissure about 4.1 cm AP by about 2.6 cm cc by 4.6 cm transverse with internal density measurements about 10 Hounsfield units as measured on sagittal images. There is other very minimal dependent right pleural fluid. There is mild peripheral density involving the pleural surface of the right middle lobe and more anteriorly of the the right lower lobe near the base such as seen images 36-39 series 2. There is other mild right lower lobe infiltrate more posteriorly. There is emphysema. Degree of mild septal thickening of the right upper lobe. There is a 0.6-0.7 cm left upper lobe nodule images 13 and 14 series 2. There is 0.6 cm left upper lobe nodule image 29 series 2. There is likely 0.2 cm left lower lobe nodule was 38 series 2. There is coronary calcification. There is also scattered calcified plaque of the thoracic aorta. Tubular ascending thoracic aorta is slightly ectatic about 3.7 cm. There is likely 0.6 cm hypodense lesion of the left thyroid gland. There is atherosclerotic calcification near the great vessel origins. There is mild hyperdensity in the visualized gallbladder lumen, may be due to vicarious excretion of contrast from recent contrast versus sludge. There is diverticulosis of the visualized colon. There is some fullness of the left adrenal gland similar to previous CT abdomen exam February 25, 2019. Heart is somewhat enlarged. There is some mitral annular calcification. IMPRESSION: 1. There is more localized pleural fluid along the superior aspect of the right major fissure, also trace dependent right pleural fluid. There is mild peripheral infiltrate of the right middle lobe and adjacent right lower lobe and also more posteriorly in the right lower lobe for which short-term follow-up after treatment advised as per revised Fleischner guidelines such as in 3 months. There are also some small pulmonary nodules as stated for which attention on follow-up is recommended. 2. There is coronary calcification. There is slightly ectatic tubular ascending thoracic aorta. Electronically signed by: Ranjit Ruth MD (09/15/2019 1:12 PM) [id number]
--- NOTE | 2019-09-15 14:52 | NUR ---
SS following for discharge planning. SS reviewed pt chart. Pt is from home and is currently requiring oxygen. Pt has outpatient dialysis scheduled at [facility], ; fax [phone], on Thursday, Thursday, and Thursday. SS will continue to follow for discharge planning.
[2019-09-15 15:15] VITALS: BP 175/73
[2019-09-15] MEDS: cefTRIAXone IV Push 1 GM VIAL. IVP SCH (16:36)
[2019-09-15] MEDS: FERRIC CITRATE PO SCH (17:00)
--- NOTE | 2019-09-15 18:38 | PDOC2 ---
NEUROLOGY CONSULT Date of Admission Date of Admission DATE: 09/15/19 TIME: 18:28 Reason for Consult Reason for Consult: IMPRESSION: Metabolic encephalopathy. ESRD on dialysis, missed one dialysis. SOB. Hyperglycemia. DM. HTN. RECOMMENDATIONS/PLAN: Treat medical diseases. Resume dialysis. Lab: see orders. EEG, patient refused it on 09/15/19. Discussed with her family members nephew and niece at bedside on 09/15/19. History of Present Illness This is a 69-year-old AA female patient who presents to the emergency department of [facility] due to increasing shortness of breath. She had mental status changes as well. She attributes her SOB to some discomfort in her throat, as well as increased salivary production, with spitting, over the past few days. She missed dialysis saying she brought her to the hospital. Her next dialysis session is scheduled for this evening. Past Medical History Cardiovascular: HTN, Hyperlipidemia Heme/Onc: Anemia NOS Hepatobiliary: No pertinent hx Psych: Anxiety Musculoskeletal: Osteoarthritis Infectious disease: Other Renal/: Chronic renal failure Endocrine: Diabetes, Hyperparathyroidism Past Surgical History LEFT ARM AV, Breast Biopsy, Hysterectomy, Other Family History Coronary Artery Disease, Hypertension Social History ALCOHOL: denied. Drugs: denied. Lives: with Family ALLERGY: NKDA MEDICATIONS: Refer to MAR REVIEW OF SYSTEMS: Constitutional: No malnutrition, weight loss, cachexia. Head: No traumatic brain or head injury. Skin: No edema, or rash. Ear: No infection. Eyes: No vision loss or color blindness. Nose: No bleeding or purulent discharges. Hearing: No hearing decrease. Neck: No injury. Breast: No history of cancer, masses,or discharges. Cardiac: HTN, HLD. Pulmonary:SOB. GI: No GI ulcer, GI bleeding. Urinary/genital: ESRD on dialysis. Endocrinologic: Diabetes Mellitus. Skeletomuscular: No muscular atrophy. Neurological: see HP. Psychiatric: Denies drug use/abuse. Otherwise, not [id number] review of systems. PHYSICAL EXAMINATION: General appearance is in subacute distress. HEENT: Normocephalic and nontraumatic. Eyes, nose, ears, and throat are unremarkable. Neck is supple. No lymphadenopathy. No crepitus. Cardiovascular: S1, S2, regular rate and rhythm. Pulmonary: Clear to auscultation bilaterally. Abdomen: Bowel sounds are positive. Extremities: No rash, lesions, or edema. No restriction of range of motion NEUROLOGICAL EXAMINATION: Awake. Oriented to time, place and person. PERRL. EOMI. CN: no focal findings. Muscle tone: within normal. Muscle strength: 5- DTR: 2+ UE, 1 at knee. Plantar reflex: Flexor response bilaterally Gait: not examined in bed. Sensory exam: no abnormal findings. No cerebellar signs elicited. F-T-N test accurate. Current Medications Current Medications Current Medications Iohexol (Omnipaque 300 Mg/ml) 70 ml 1X ONCE IV ; Start 09/14/19 at 08:30; Stop 09/14/19 at 08:31; Status DC Info (CONTRAST GIVEN -- Rx MONITORING) 1 each PRN DAILY PRN MC SEE COMMENTS; Start 09/14/19 at 08:30; Stop 09/16/19 at 08:29 Dexamethasone Sodium Phosphate (Decadron) 8 mg 1X ONCE IV Last administered on 09/14/19at 11:52; Start 09/14/19 at 10:15; Stop 09/14/19 at 10:16; Status DC Clonidine HCl (Catapres) 0.1 mg 1X ONCE PO Last administered on 09/14/19at 11:51; Start 09/14/19 at 11:15; Stop 09/14/19 at 11:16; Status DC Darbepoetin Shan (ARANESP for DIALYSIS PTS) 60 mcg WEEKLYHS SQ Last administered on 09/14/19at 21:27; Start 09/14/19 at 21:00 Lidocaine HCl (Xylocaine-Mpf 1% 2ml Vial) 2 ml STK-MED ONCE .ROUTE ; Start 09/14/19 at 14:03; Stop 09/14/19 at 14:03; Status DC Ceftriaxone Sodium (Rocephin) 1 gm Q24H IVP Last administered on 09/15/19at 16:36; Start 09/14/19 at 17:00 Hydralazine HCl (Apresoline Inj) 10 mg PRN Q4HRS PRN IVP ELEVATED BP, SEE COMMENTS Last administered on 09/14/19at 19:44; Start 09/14/19 at 18:45 Sodium Monofluorophosphate (Fleet Adult) 133 ml 1X ONCE MO ; Start 09/14/19 at 20:00; Stop 09/14/19 at 20:01; Status Cancel Sodium Chloride 1,000 ml @ 1,000 mls/hr Q1H PRN IV hypotension; Start 09/14/19 at 13:00 Info (PHARMACY MONITORING -- do not chart) 1 each PRN DAILY PRN MC SEE COMMENTS; Start 09/14/19 at 20:45 Gabapentin (Neurontin) 100 mg DAILY PO Last administered on 09/15/19at 08:46; Start 09/15/19 at 06:30 Insulin Human Lispro (HumaLOG) 0-9 UNITS TIDWMEALS SQ Last administered on 09/15/19at 16:44; Start 09/15/19 at 13:00 Dextrose (Dextrose 50%-Water Syringe) 12.5 gm PRN Q15MIN PRN IV SEE COMMENTS; Start 09/15/19 at 12:15 Dextrose (Iv Dextrose 5%) 250 ml PRN Q15MIN PRN IV SEE COMMENTS; Start 09/15/19 at 12:15 Amlodipine Besylate (Norvasc) 5 mg BID PO Last administered on 09/15/19at 12:42; Start 09/15/19 at 13:00 Anastrozole (Arimidex) 1 mg DAILY PO Last administered on 09/15/19at 12:43; Start 09/15/19 at 13:00 Aspirin (Children'S Aspirin) 81 mg DAILY PO Last administered on 09/15/19at 12:42; Start 09/15/19 at 13:00 Carvedilol (Coreg) 3.125 mg BIDWMEALS PO Last administered on 09/15/19at 16:35; Start 09/15/19 at 13:00 Vitamin B Complex/ Vitamin C (Elise-Monica) 1 tab DAILY PO Last administered on 09/15/19at 12:41; Start 09/15/19 at 13:00 Non-Formulary Medication (Ferric Citrate ) 4 tab TIDWMEALS PO ; Start 09/15/19 at 17:00; Status UNV Sevelamer Carbonate (Renvela) 1,600 mg TIDWMEALS PO Last administered on 09/15/19at 16:35; Start 09/15/19 at 13:00 Lactobacillus Rhamnosus (Culturelle) 1 cap BID PO ; Start 09/15/19 at 21:00 Active Scripts Active Reported Ferric Citrate 210 Mg Tablet 4 Tab PO TIDWMEALS 30 Days Renagel (Sevelamer Hcl) 800 Mg Tablet 2 Tab PO TIDAC Renaplex-D Tablet (B,C/Folic/Zinc/Selenometh/D3/E) 1 Each Tablet 1 Each PO DAILY Aspirin 81 Mg Tab.chew 81 Mg PO DAILY Levemir Flextouch (Insulin Detemir) 100 Unit/1 Ml Insuln.pen 1 Unit SQ BID Anastrozole 1 Mg Tablet 1 Mg PO DAILY Carvedilol (Carvedilol) 3.125 Mg Tablet 3.125 Mg PO BIDWMEALS Amlodipine Besylate 5 Mg Tablet 1 Tab PO BID Allergies Allergies: Allergies Coded Allergies Type Severity Reaction Last Updated Verified No Known Drug Allergies 01/31/15 No ROS Review of System The patient denies any associated fevers, chills, headache, ear pain, rhinorrhea, sore throat, stiff neck, productive cough, chest pain, shortness of breath, back or flank pain, abdominal pain, nausea, vomiting, diarrhea, constipation, dysuria, rash, numbness, weakness, tingling, incontinence, difficulty ambulating, or diaphoresis. Physical Exam Physical Exam General: Well developed, well nourished, no acute distress, well appearing HEENT: Pupils equally round and reactive to light, EOMI, no discharge, normal conjunctiva Neck: Supple, no nuchal rigidity, no JVD, trachea midline, no tenderness Cardiac: RRR, no murmurs, no gallops, no rubs Chest/Lungs: CTAB, no wheeze, no rhonchi, no crackles Abdomen: soft, non-distended, no guarding, no peritoneal signs, non-tender Back: No tenderness Extremities: no edema, pulses intact, non-tender,capillary refill <3 sec bilateral upper and lower extremities, Neuro: Alert and oriented x 4, no focal deficits, normal speech Vitals Vitals: Vital Signs Date Time Temp Pulse Resp B/P (MAP) Pulse Ox O2 Delivery O2 Flow Rate FiO2 09/15/19 16:35 67 175/73 09/15/19 15:15 98.1 20 99 Nasal Cannula 2.0 98.1 Labs Labs Laboratory Tests Test 09/14/19 07:53 09/14/19 20:22 09/15/19 02:33 09/15/19 04:15 White Blood Count 10.4 x10^3/uL (4.0-11.0) Red Blood Count 3.20 x10^6/uL (3.50-5.40) Hemoglobin 10.0 g/dL (12.0-15.5) Hematocrit 30.0 % (36.0-47.0) Mean Corpuscular Volume 94 fL (79-100) Mean Corpuscular Hemoglobin 31 pg (25-35) Mean Corpuscular Hemoglobin Concent 33 g/dL (31-37) Red Cell Distribution Width 15.1 % (11.5-14.5) Platelet Count 294 x10^3/uL (140-400) Neutrophils (%) (Auto) 83 % (31-73) Lymphocytes (%) (Auto) 10 % (24-48) Monocytes (%) (Auto) 4 % (0-9) Eosinophils (%) (Auto) 1 % (0-3) Basophils (%) (Auto) 1 % (0-3) Neutrophils # (Auto) 8.7 x10^3/uL (1.8-7.7) Lymphocytes # (Auto) 1.1 x10^3/uL (1.0-4.8) Monocytes # (Auto) 0.4 x10^3/uL (0.0-1.1) Eosinophils # (Auto) 0.1 x10^3/uL (0.0-0.7) Basophils # (Auto) 0.1 x10^3/uL (0.0-0.2) Prothrombin Time 13.2 SEC (11.7-14.0) Prothromb Time International Ratio 1.0 (0.8-1.1) Sodium Level 141 mmol/L (136-145) 140 mmol/L (136-145) Potassium Level 5.8 mmol/L (3.5-5.1) 4.7 mmol/L (3.5-5.1) Chloride Level 99 mmol/L (98-107) 99 mmol/L (98-107) Carbon Dioxide Level 25 mmol/L (21-32) 31 mmol/L (21-32) Anion Gap 17 (6-14) 10 (6-14) Blood Urea Nitrogen 120 mg/dL (7-20) 48 mg/dL (7-20) Creatinine 17.4 mg/dL (0.6-1.0) 9.3 mg/dL (0.6-1.0) Estimated GFR (Cockcroft-Gault) 2.5 5.1 BUN/Creatinine Ratio 7 (6-20) Glucose Level 143 mg/dL (70-99) 220 mg/dL (70-99) Calcium Level 9.7 mg/dL (8.5-10.1) 8.7 mg/dL (8.5-10.1) Total Bilirubin 0.4 mg/dL (0.2-1.0) Aspartate Amino Transf (AST/SGOT) 12 U/L (15-37) Alanine Aminotransferase (ALT/SGPT) < 6 U/L (14-59) Alkaline Phosphatase 116 U/L (46-116) Troponin I Quantitative 0.044 ng/mL (0.000-0.055) Total Protein 7.4 g/dL (6.4-8.2) Albumin 3.5 g/dL (3.4-5.0) Albumin/Globulin Ratio 0.9 (1.0-1.7) Glucose (Fingerstick) 179 mg/dL (70-99) 152 mg/dL (70-99) Vitamin B12 Level > 2000 pg/mL (247-911) Thyroid Stimulating Hormone (TSH) 1.589 uIU/mL (0.358-3.74) Test 09/15/19 07:33 09/15/19 11:50 09/15/19 16:27 Glucose (Fingerstick) 194 mg/dL (70-99) 190 mg/dL (70-99) 163 mg/dL (70-99) Laboratory Tests Test 09/14/19 20:22 09/15/19 02:33 09/15/19 04:15 09/15/19 07:33 Glucose (Fingerstick) 179 mg/dL (70-99) 152 mg/dL (70-99) 194 mg/dL (70-99) Sodium Level 140 mmol/L (136-145) Potassium Level 4.7 mmol/L (3.5-5.1) Chloride Level 99 mmol/L (98-107) Carbon Dioxide Level 31 mmol/L (21-32) Anion Gap 10 (6-14) Blood Urea Nitrogen 48 mg/dL (7-20) Creatinine 9.3 mg/dL (0.6-1.0) Estimated GFR (Cockcroft-Gault) 5.1 Glucose Level 220 mg/dL (70-99) Calcium Level 8.7 mg/dL (8.5-10.1) Vitamin B12 Level > 2000 pg/mL (247-911) Thyroid Stimulating Hormone (TSH) 1.589 uIU/mL (0.358-3.74) Test 09/15/19 11:50 09/15/19 16:27 Glucose (Fingerstick) 190 mg/dL (70-99) 163 mg/dL (70-99) KAREN SNEED MD Sep 15, 2019 18:38
[2019-09-15 19:53] VITALS: BP 176/78
[2019-09-15] MEDS ORDERED: ONDANSETRON PF 4 MG/2 ML VIAL. IVP PRN (20:00)
[2019-09-15] MEDS: hydrALAZINE 20 MG/ML VIAL. IVP PRN (20:33)
[2019-09-15] MEDS: LACTOBACILLUS RHAMNOSUS GG 1 CAPSULE. PO SCH (20:33)
[2019-09-15 23:07] VITALS: BP 176/69
[2019-09-16] MEDS ORDERED: ACETAMINOPHEN 325 MG TABLET. PO PRN (00:15)
[2019-09-16 03:20] VITALS: BP 161/68
[2019-09-16] MEDS ORDERED: IV NORMAL SALINE 1000ML BAG 1,000 ML IV PRN ×2 (07:21)
[2019-09-16] MEDS ORDERED: DIALYSIS PATIENT. MC PRN ×2 (07:30)
[2019-09-16 07:44] VITALS: BP 160/71
[2019-09-16] MEDS: FERRIC CITRATE PO SCH ×2 (08:00→12:00)
[2019-09-16] MEDS: INSULIN LISPRO 300 UNITS/3 ML VIAL. SQ SCH ×2 (08:00→12:00)
[2019-09-16] MEDS: CARVEDILOL 3.125 MG TABLET. PO SCH (08:00)
[2019-09-16] MEDS: SEVELAMER CARBONATE 800 MG TABLET. PO SCH ×2 (08:00→13:35)
[2019-09-16] MEDS: ANASTROZOLE 1 MG TABLET PO SCH (09:00)
[2019-09-16] MEDS: amLODIPine BESYLATE 5 MG TABLET PO SCH (09:00)
[2019-09-16] MEDS: LACTOBACILLUS RHAMNOSUS GG 1 CAPSULE. PO SCH (09:00)
--- NOTE | 2019-09-16 10:23 | PDOC ---
SUBJECTIVE ROS Stable OBJECTIVE Vital Signs Vital Signs Date Time Temp Pulse Resp B/P (MAP) Pulse Ox O2 Delivery O2 Flow Rate FiO2 09/16/19 07:44 97.7 74 18 160/71 (100) 94 Room Air 97.7 09/15/19 20:00 2.0 I & 0 Intake and Output 09/16/19 07:00 Intake Total 920 ml Output Total 0 ml Balance 920 ml Intake Oral 920 ml Output Urine Total 0 ml # Voids 2 PHYSICAL EXAM Physical Exam General: Alert, Oriented X3, NAD HEENT: OM moist Neck supple Lungs: CTA Bilat CV RRR Abdomen: Soft Extremities: No edema Neuro: Grossly Normal No Boyle Skin no rash DIAGNOSIS/ASSESSMENT Assessment & Plan ESRDdialyzes under the care of [facility] physicians on MWF She is an ESRD for approximately 6-7 years Seen on HD, tolerating well, continue as ordered, Tru Hager Hyperkalemia- at presentation, Dialyzed, Hypertension- Antihypertensives diastolic CHF Chronic Non complaince Anemia- Hgb to 10-11, FADI per protocol COMMENT/RELEVANT DATA Meds Current Medications Medications (Trade) Dose Ordered Sig/Aruna Start Time Stop Time Status Last Admin Dose Admin Acetaminophen (Tylenol) 650 mg PRN Q6HRS PRN 09/16/19 00:15 09/16/19 01:58 650 MG Amlodipine Besylate (Norvasc) 5 mg BID 09/15/19 13:00 09/15/19 12:42 5 MG Anastrozole (Arimidex) 1 mg DAILY 09/15/19 13:00 09/15/19 12:43 1 MG Aspirin (Children'S Aspirin) 81 mg DAILY 09/15/19 13:00 09/15/19 12:42 81 MG Carvedilol (Coreg) 3.125 mg BIDWMEALS 09/15/19 13:00 09/15/19 16:35 3.125 MG Ceftriaxone Sodium (Rocephin) 1 gm Q24H 09/14/19 17:00 09/15/19 16:36 1 GM Clonidine HCl (Catapres) 0.1 mg 1X ONCE 09/14/19 11:15 09/14/19 11:16 DC 09/14/19 11:51 0.1 MG Darbepoetin Shan (ARANESP for DIALYSIS PTS) 60 mcg WEEKLYHS 09/14/19 21:00 09/14/19 21:27 60 MCG Dexamethasone Sodium Phosphate (Decadron) 8 mg 1X ONCE 09/14/19 10:15 09/14/19 10:16 DC 09/14/19 11:52 8 MG Dextrose (Dextrose 50%-Water Syringe) 12.5 gm PRN Q15MIN PRN 09/15/19 12:15 Dextrose (Iv Dextrose 5%) 250 ml PRN Q15MIN PRN 09/15/19 12:15 Gabapentin (Neurontin) 100 mg DAILY 09/15/19 06:30 09/15/19 08:46 100 MG Hydralazine HCl (Apresoline Inj) 10 mg PRN Q4HRS PRN 09/14/19 18:45 09/15/19 20:33 10 MG Info (CONTRAST GIVEN -- Rx MONITORING) 1 each PRN DAILY PRN 09/14/19 08:30 09/16/19 08:29 DC Info (PHARMACY MONITORING -- do not chart) 1 each PRN DAILY PRN 09/16/19 07:30 09/16/19 08:03 DC Insulin Human Lispro (HumaLOG) 0-9 UNITS TIDWMEALS 09/15/19 13:00 09/15/19 16:44 4 UNITS Iohexol (Omnipaque 300 Mg/ml) 70 ml 1X ONCE 09/14/19 08:30 09/14/19 08:31 DC Lactobacillus Rhamnosus (Culturelle) 1 cap BID 09/15/19 21:00 Lidocaine HCl (Xylocaine-Mpf 1% 2ml Vial) 2 ml STK-MED ONCE 09/14/19 14:03 09/14/19 14:03 DC Non-Formulary Medication (Ferric Citrate ) 4 tab TIDWMEALS 09/15/19 17:00 UNV Ondansetron HCl (Zofran) 4 mg PRN Q6HRS PRN 09/15/19 20:00 09/15/19 20:25 4 MG Sevelamer Carbonate (Renvela) 1,600 mg TIDWMEALS 09/15/19 13:00 09/15/19 16:35 1,600 MG Sodium Monofluorophosphate (Fleet Adult) 133 ml 1X ONCE 09/14/19 20:00 09/14/19 20:01 Cancel Sodium Chloride 1,000 ml @ 400 mls/hr Q2H30M PRN 09/16/19 07:21 09/16/19 19:20 Vitamin B Complex/ Vitamin C (Elise-Monica) 1 tab DAILY 09/15/19 13:00 09/15/19 12:41 1 TAB Lab Laboratory Tests Test 09/15/19 11:50 09/15/19 16:27 09/15/19 20:37 09/16/19 07:29 Glucose (Fingerstick) 190 mg/dL (70-99) 163 mg/dL (70-99) 127 mg/dL (70-99) 110 mg/dL (70-99) Results All relevant outside records, renal labs, imaging studies, telemetry/EKG's were reviewed. ELIEL VIVAR MD Sep 16, 2019 10:22
[2019-09-16 11:31] VITALS: BP 165/72
[2019-09-16] MEDS ORDERED: GABA-585 PO (12:10)
--- NOTE | 2019-09-16 12:18 | PDOC3 ---
Discharge Summary Visit Information Date of Admission: Sep 14, 2019 Date of Discharge: Sep 16, 2019 Admitting Diagnosis Comment: HYPERKALEMIA HYPERVOLEMIA, missed HD ESRD HD DM II only on SSI, unknown hgba1c HTN, controlled Abn CXR, ex smoker - quit 6 yrs ago ENlarged LNs, reactive LAryngeitis Final Diagnosis Problems Medical Problems: (1) Dyspnea Status: Acute (2) Laryngitis Status: Acute (3) Missed dialysis Status: Acute Brief Hospital Course Allergies Allergies Coded Allergies Type Severity Reaction Last Updated Verified No Known Drug Allergies 01/31/15 No Vital Signs Vital Signs Date Time Temp Pulse Resp B/P (MAP) Pulse Ox O2 Delivery O2 Flow Rate FiO2 09/16/19 11: 97.9 83 18 165/72 (103) 100 Room Air 97.9 09/15/19 20:00 2.0 Lab Results Laboratory Tests Test 09/14/19 20:22 09/15/19 02:33 09/15/19 04:15 09/15/19 07:33 Glucose (Fingerstick) 179 mg/dL (70-99) 152 mg/dL (70-99) 194 mg/dL (70-99) Sodium Level 140 mmol/L (136-145) Potassium Level 4.7 mmol/L (3.5-5.1) Chloride Level 99 mmol/L (98-107) Carbon Dioxide Level 31 mmol/L (21-32) Anion Gap 10 (6-14) Blood Urea Nitrogen 48 mg/dL (7-20) Creatinine 9.3 mg/dL (0.6-1.0) Estimated GFR (Cockcroft-Gault) 5.1 Glucose Level 220 mg/dL (70-99) Calcium Level 8.7 mg/dL (8.5-10.1) Vitamin B12 Level > 2000 pg/mL (247-911) Thyroid Stimulating Hormone (TSH) 1.589 uIU/mL (0.358-3.74) Test 09/15/19 11:50 09/15/19 16:27 09/15/19 20:37 09/16/19 07:29 Glucose (Fingerstick) 190 mg/dL (70-99) 163 mg/dL (70-99) 127 mg/dL (70-99) 110 mg/dL (70-99) Test 09/16/19 08:12 09/16/19 11:38 Hepatitis B Surface Antigen Nonreactive (Nonreactive) Hepatitis B Surface Antibody Nonreactive Glucose (Fingerstick) 115 mg/dL (70-99) Laboratory Tests Test 09/15/19 16:27 09/15/19 20:37 09/16/19 07:29 09/16/19 08:12 Glucose (Fingerstick) 163 mg/dL (70-99) 127 mg/dL (70-99) 110 mg/dL (70-99) Hepatitis B Surface Antigen Nonreactive (Nonreactive) Hepatitis B Surface Antibody Nonreactive Test 09/16/19 11:38 Glucose (Fingerstick) 115 mg/dL (70-99) Brief Hospital Course Ms. Garcia is a 69 old AA female who missed HD so came in hyperkalemia and in fluid overload and got 2 sessions HD before discharging today, She does smoke, had some CXR findings that we followed up with CT and CT recs 3 mo interval ff up. I counselled on her smoking and compliance to HD Dw many fam members at bedside Pharmacy recs to dec her home gabapentin dose to 100 qdaily bec of kidney fcn Consults: renal proc; HD Discharge Information Condition at Discharge: Improved, Stable Disposition/Orders: D/C to Home Scheduled Amlodipine Besylate (Amlodipine Besylate) 5 Mg Tablet, 1 TAB PO BID, #30 Ref 5 (Reported) Entered as Reported by: KHOA THORNE on 02/01/15 1020 Last Action: Continued on 09/15/191214 by JOHN OHARA Anastrozole (Anastrozole) 1 Mg Tablet, 1 MG PO DAILY for POSTMENOPAUSAL, (Reported) Entered as Reported by: TIFFANY ALVA on 07/18/192100 Last Action: Continued on 09/15/191214 by JOHN OHARA Aspirin (Aspirin) 81 Mg Tab.chew, 81 MG PO DAILY for HEART DISEASE, (Reported) Entered as Reported by: TIFFANY ALVA on 07/18/192100 Last Action: Continued on 09/15/191214 by JOHN OHARA B,C/Folic/Zinc/Selenometh/D3/E (Renaplex-D Tablet) 1 Each Tablet, 1 EACH PO DAILY for vitamin, (Reported) Entered as Reported by: LYNN AUSTIN on 09/14/19 0858 Last Action: Converted on 09/15/191214 by JOHN OHARA Carvedilol (Carvedilol ) 3.125 Mg Tablet, 3.125 MG PO BIDWMEALS for CARDIAC, (Reported) Entered as Reported by: TIFFANY ALVA on 07/18/192100 Last Action: Continued on 09/15/191214 by JOHN OHARA Ferric Citrate (Ferric Citrate) 210 Mg Tablet, 4 TAB PO TIDWMEALS for iron deficiency for 30 Days, #360 Ref 0 (Reported) Entered as Reported by: Gulshan Espinoza on 09/14/19 1406 Last Action: Converted on 09/15/191214 by JOHN OHARA Gabapentin (Gabapentin ) 100 Mg Capsule, 100 MG PO DAILY for beurpathy, #60 Prescribed by: JOHN OHARA on 09/16/191209 Insulin Detemir (Levemir Flextouch) 100 Unit/1 Ml Insuln.pen, 1 UNIT SQ BID for DIABETES, (Reported) Entered as Reported by: TIFFANY ALVA on 07/18/192100 Last Action: HELD on 09/15/191214 by JOHN OHARA Sevelamer Hcl (Renagel) 800 Mg Tablet, 2 TAB PO TIDAC for dialysis, (Reported) Entered as Reported by: LYNN AUSTIN on 09/14/19 0858 Last Action: Converted on 09/15/191214 by JOHN AKINS MD Sep 16, 2019 12:18
[2019-09-16] MEDS: ASPIRIN CHEWABLE 81 MG TABLET. PO SCH (13:35)
[2019-09-16] MEDS: FOLIC/VIT B COMP W-C (RENAL) TABLET. PO SCH (13:35)
[2019-09-16] MEDS: GABAPENTIN 100 MG CAPSULE. PO SCH (13:35)
--- NOTE | 2019-09-16 15:09 | NUR ---
Discharge Note: [place] [facility] Discharge instructions and discharge home medications reviewed with Patient and a copy given. All questions have been answered and understanding verbalized. The following instructions and handouts were given: follow up instructions, prescription for gabapentin Discontinued lines and drains: 22 right hand, tip intact. patient tolerated well. Patient discharged to home with self care via family.
--- NOTE | 2019-09-16 15:18 | PDOC ---
PROGRESS NOTES Assessment Assessment Metabolic encephalopathy. ESRD on dialysis, missed one dialysis. SOB. Hyperglycemia. DM. HTN. RECOMMENDATIONS/PLAN: Treat medical diseases. Resumed dialysis. EEG, patient refused it on 09/15/19. Discussed with her family members again at bedside on 09/16/19. History of Present Illness This is a 69-year-old AA female patient who presents to the emergency department of [facility] due to increasing shortness of breath. She had mental status changes as well. She attributes her SOB to some discomfort in her throat, as well as increased salivary production, with spitting, over the past few days. She missed dialysis saying she brought her to the hospital. Her next dialysis session is scheduled for this evening. 09/16/19: Mental status is at baseline normal. Past Medical History Cardiovascular: HTN, Hyperlipidemia Heme/Onc: Anemia NOS Hepatobiliary: No pertinent hx Psych: Anxiety Musculoskeletal: Osteoarthritis Infectious disease: Other Renal/: Chronic renal failure Endocrine: Diabetes, Hyperparathyroidism Past Surgical History LEFT ARM AV, Breast Biopsy, Hysterectomy, Other Family History Coronary Artery Disease, Hypertension Social History ALCOHOL: denied. Drugs: denied. Lives: with Family ALLERGY: NKDA MEDICATIONS: Refer to MAR REVIEW OF SYSTEMS: Constitutional: No malnutrition, weight loss, cachexia. Head: No traumatic brain or head injury. Skin: No edema, or rash. Ear: No infection. Eyes: No vision loss or color blindness. Nose: No bleeding or purulent discharges. Hearing: No hearing decrease. Neck: No injury. Breast: No history of cancer, masses,or discharges. Cardiac: HTN, HLD. Pulmonary:SOB. GI: No GI ulcer, GI bleeding. Urinary/genital: ESRD on dialysis. Endocrinologic: Diabetes Mellitus. Skeletomuscular: No muscular atrophy. Neurological: see HP. Psychiatric: Denies drug use/abuse. Otherwise, not [id number] review of systems. PHYSICAL EXAMINATION: General appearance is in no acute distress. HEENT: Normocephalic and nontraumatic. Eyes, nose, ears, and throat are unremarkable. Neck is supple. No lymphadenopathy. No crepitus. Cardiovascular: S1, S2, regular rate and rhythm. Pulmonary: Clear to auscultation bilaterally. Abdomen: Bowel sounds are positive. Extremities: No rash, lesions, or edema. No restriction of range of motion NEUROLOGICAL EXAMINATION: Awake. Oriented to time, place and person. PERRL. EOMI. CN: no focal findings. Muscle tone: within normal. Muscle strength: 5 DTR: 2+ UE, 1+ at knee. Plantar reflex: Flexor response bilaterally Gait: not examined in bed. Sensory exam: no abnormal findings. No cerebellar signs elicited. F-T-N test accurate. Objective Objective Vital Signs Date Time Temp Pulse Resp B/P (MAP) Pulse Ox O2 Delivery O2 Flow Rate FiO2 09/16/19 11:31 97.9 83 18 165/72 (103) 100 Room Air 97.9 09/16/19 08:00 2.0 Intake and Output 09/16/19 07:00 Intake Total 920 ml Output Total 0 ml Balance 920 ml Intake Oral 920 ml Output Urine Total 0 ml # Voids 2 Vitals Signs Vitals VS - Last 72 Hours, by Label Date Time Temp Pulse Resp B/P (MAP) Pulse Ox O2 Delivery O2 Flow Rate FiO2 09/16/19 11:31 97.9 83 18 165/72 (103) 100 Room Air 97.9 09/16/19 08:00 Nasal Cannula 2.0 09/16/19 07:44 97.7 74 18 160/71 (100) 94 Room Air 97.7 09/16/19 03:20 97.7 69 16 161/68 (99) 91 Room Air 97.7 09/15/19 23:07 98.0 85 16 176/69 (104) 92 Room Air 98.0 09/15/19 20:33 74 176/78 09/15/19 20:00 Nasal Cannula 2.0 09/15/19 19:53 97.8 74 16 176/78 (110) 95 Room Air 97.8 09/15/19 16:35 67 175/73 09/15/19 15:15 98.1 67 20 175/73 (107) 99 Nasal Cannula 2.0 98.1 09/15/19 12:42 83 197/84 09/15/19 12:42 83 197/84 09/15/19 11:04 98.5 83 20 197/84 (121) 98 Nasal Cannula 2.0 98.5 09/15/19 08:00 Nasal Cannula 2.0 09/15/19 07:15 98.3 71 18 187/80 (115) 97 Nasal Cannula 2.0 98.3 Laboratory Laboratory Laboratory Tests Test 09/15/19 16:27 09/15/19 20:37 09/16/19 07:29 09/16/19 08:12 Glucose (Fingerstick) 163 mg/dL (70-99) 127 mg/dL (70-99) 110 mg/dL (70-99) Hepatitis B Surface Antigen Nonreactive (Nonreactive) Hepatitis B Surface Antibody Nonreactive Test 09/16/19 11:38 Glucose (Fingerstick) 115 mg/dL (70-99) Medication Medications Current Medications Acetaminophen (Tylenol) 650 mg PRN Q6HRS PRN PO MILD PAIN / TEMP Last administered on 09/16/19at 01:58; Start 09/16/19 at 00:15 Info (PHARMACY MONITORING -- do not chart) 1 each PRN DAILY PRN MC SEE COMMENTS; Start 09/16/19 at 07:30; Stop 09/16/19 at 08:03; Status DC Info (PHARMACY MONITORING -- do not chart) 1 each PRN DAILY PRN MC SEE COMMENTS ; Start 09/16/19 at 07:30 Lactobacillus Rhamnosus (Culturelle) 1 cap BID PO ; Start 09/15/19 at 21:00 Non-Formulary Medication (Ferric Citrate ) 4 tab TIDWMEALS PO ; Start 09/15/19 at 17:00; Stop 09/16/19 at 14:57; Status DC Ondansetron HCl (Zofran) 4 mg PRN Q6HRS PRN IVP NAUSEA/VOMITING Last administered on 09/15/19at 20:25; Start 09/15/19 at 20:00 Sodium Chloride 1,000 ml @ 400 mls/hr Q2H30M PRN IV PATENCY; Start 09/16/19 at 07:21; Stop 09/16/19 at 19:20 Sodium Chloride 1,000 ml @ 1,000 mls/hr Q1H PRN IV hypotension; Start 09/16/19 at 07:21; Stop 09/16/19 at 13:20; Status DC Comment Review of Relevant I have reviewed the following items (where applicable) has been applied. KAREN SNEED MD Sep 16, 2019 15:18
== END 2019-09-16 15:32 | disposition home or self-care (01) | DRG 640 ==
LOC: ER 07:05 → 6 SOUTH 10:09
PROVIDERS: ADMIT Internal Medicine; ATTEND Internal Medicine
PROC: 5A1D70Z Performance of Urinary Filtration, Intermittent, Less than 6 Hours Per Day (ICD-10-PCS; principal; 2019-09-14)
PROC: 5A1D70Z Performance of Urinary Filtration, Intermittent, Less than 6 Hours Per Day (ICD-10-PCS; 2019-09-15)
DX: E87.5 Hyperkalemia (principal); G93.41 Metabolic encephalopathy; N18.6 End stage renal disease; I50.33 Acute on chronic diastolic (congestive) heart failure; I13.2 Hypertensive heart and chronic kidney disease with heart failure and with stage 5 chronic kidney disease, or end stage renal disease; I16.1 Hypertensive emergency; D64.9 Anemia, unspecified; E11.22 Type 2 diabetes mellitus with diabetic chronic kidney disease; E11.65 Type 2 diabetes mellitus with hyperglycemia; E21.3 Hyperparathyroidism, unspecified; E78.5 Hyperlipidemia, unspecified; F17.200 Nicotine dependence, unspecified, uncomplicated; J38.6 Stenosis of larynx; Z82.49 Family history of ischemic heart disease and other diseases of the circulatory system; Z90.710 Acquired absence of both cervix and uterus; Z91.15 Patient's noncompliance with renal dialysis; Z91.19 Patient's noncompliance with other medical treatment and regimen; Z99.2 Dependence on renal dialysis; F41.9 Anxiety disorder, unspecified; M19.90 Unspecified osteoarthritis, unspecified site
CPT/HCPCS: 36415; 70450; 70491; 71046; 71250; 80048; 80053; 82607; 82962; 84443; 84484; 85025; 85610; 86706; 87340; 93005; 94618; J0360; J0696; J0882; J1100; J1815; J2405; G0378